=== PATIENT | male | born 1970 | race Caucasian/White ===

== ENCOUNTER 2017-11-09 14:53 | Observation (INO) ==
[2017-11-09] MEDS ORDERED: IPRATROPIUM/ALBUTEROL 3 ML AMPUL.NEB NEB ONE (15:08)
[2017-11-09] MEDS ORDERED: methylPREDNISolone SOD SUCC 125 MG/2 ML VIAL IV ONE (15:18)
--- NOTE | 2017-11-09 15:22 | Emergency Department Note ---
SOB HPI - General Chief Complaint: Shortness of Breath/Dyspnea Stated Complaint: SOB Time Seen by Provider: 11/09/17 15:17 Source: patient Mode of arrival: ambulatory Limitations: no limitations - History of Present Illness 47-year-old male with a history of shortness of breath/chest pain occurs mainly with coughing. That is the chest pain only occurs when he is having a coughing fit. His chest is sore though. He has been sick now for over a week and was admitted to [facility] for 3 days and released yesterday. He is on antibiotics and inhaler but not steroids. He reports some dizziness. He is a dialysis patient of Dr. Aguilera and has a significant heart history-see past medical history Denies fever nausea vomiting diarrhea. He does not make urine anymore except just a little bit Lexiscan stress test was done at [facility] on 11/08/2017 which was negative for ischemia with ejection fraction of 53%. His troponin there was 0.13 - Related Data Home Medications Medication Instructions Recorded Confirmed Aspirin [[place] Aspirin] 81 mg PO DAILY 11/09/17 11/09/17 Atorvastatin [Lipitor] 40 mg PO HS 11/09/17 11/09/17 Calcium Carbonate 11/09/17 Clopidogrel Bisulfate [Plavix] 75 mg PO DAILY 11/09/17 11/09/17 Coreg 11/09/17 Fenofibrate Nanocrystallized 48 mg PO DAILY 11/09/17 11/09/17 [Tricor] Furosemide [Lasix] 40 mg PO DAILY 11/09/17 11/09/17 Isosorbide Mononitrate [Imdur] 60 mg PO DAILY 11/09/17 11/09/17 Lisinopril DAILY 11/09/17 Methocarbamol [Robaxin] 11/09/17 Nitroglycerin mg SL 11/09/17 Risperdal DAILY 11/09/17 Sevelamer [Renvela] 800 mg PO 11/09/17 Terazosin [Hytrin] 5 mg PO DAILY 11/09/17 11/09/17 amLODIPine [Norvasc] 10 mg PO DAILY 11/09/17 11/09/17 cloNIDine 11/09/17 Allergies Allergy/AdvReac Type Severity Reaction Status Date / Time No Known Drug Allergies Allergy Unverified 11/09/17 14:54 Review of Systems All systems ED: reviewed and negative except as stated. Past Medical History - Past Medical History Attestation: Yes: The following information was validated with the patient. Medical history: Reports: CHF (Dilated cardiomyopathy), COPD, coronary artery disease, hypertension, myocardial infarction, renal disease (On dialysis with catheter and fistula) Psychiatric history: Reports: schizophrenia Surgical history ED: Reports: angioplasty/stent, cholecystectomy, other ( Dialysis fistula catheter) - Social History smoking status: Current every day smoker Alcohol use: Reports: None Physical Exam Some acute distress secondary to respiratory issues. Normocephalic atraumatic. He has some mild proptosis. No nasal discharge or congestion. Oropharynx pink moist. Hoarse voice. Poor dentition with multiple missing teeth. Neck is supple without lymphadenopathy or thyromegaly. Heart is tachycardic difficulty or murmur without. He has a dialysis catheter in his right upper chest. Lungs are tight as it is difficult for him to take a deep breath without significant coughing he is got rhonchi and wheezing in all lung garner. I do not hear any significant rales. He is not requiring oxygen at this point. +2 radial pulse. Fistula in place left upper arm bicep area. Alert oriented able to answer questions appropriately Limitations: no limitations Course Vital Signs Temperature 97.9 F 11/09/17 14:54 Respiratory Rate 14 11/09/17 14:54 Blood Pressure 121/79 11/09/17 14:54 Temperature 99.0 F H 11/10/17 04:08 Pulse Rate 99 H 11/10/17 04:08 Respiratory Rate 20 11/10/17 04:08 Blood Pressure 128/91 11/10/17 04:08 Pulse Oximetry (%) 95 11/10/17 04:08 Shortness of Breath/Dyspnea - Medical Records Medical records reviewed: Yes I reviewed the patient's medical records. - Lab Data Lab results reviewed: Yes I reviewed the patient's lab results. Result diagrams: 11/10/17 03:40 11/10/17 03:40 Lab Results 11/09/17 11/09/17 11/09/17 Range/Units 15:40 15:46 15:46 WBC 10.5 (4.5-11.0) K/mcL RBC 3.41 L (4.50-5.90) M/mcL Hgb 10.2 L (13.5-16.5) g/dL Hct 30.3 L (41.0-55.0) % POC Hct 30.0 L (41.0-55.0) % MCV 89.1 (80.0-100.0) fL MCH 29.9 (26.0-34.0) pg MCHC 33.6 (31.0-36.0) g/dL RDW 17.7 H (11.5-14.5) % Plt Count 217 (140-440) K/mcL MPV 7.9 (7.4-10.4) fL Gran % 77.6 (38.0-78.0) % Lymph % (Auto) 7.2 L (15.5-49.0) % Becker % (Auto) 13.4 H (1.0-12.0) % Eos % (Auto) 1.6 (0.0-7.0) % Baso % (Auto) 0.2 (0.0-2.0) % Gran # 8.2 H (1.8-8.0) K/mcL Lymph # (Auto) 0.8 L (1.5-4.8) K/mcL Becker # (Auto) 1.4 H (0.1-0.9) K/mcL Eos # (Auto) 0.2 (0.0-0.7) K/mcL Baso # (Auto) 0 (0.0-0.3) K/mcL VBG Lactic Acid 0.8 (0.5-2.2) mmol/L POC Sodium 129 L (133-145) mmol/L Sodium 130 L (133-145) mmol/L POC Potassium 5.5 H (3.3-5.1) mmol/L Potassium 5.7 H (3.3-5.1) mmol/L POC Chloride 91 L (96-108) mmol/L Chloride 85 L (96-108) mmol/L Carbon Dioxide 21 L (22-30) mmol/L POC Total CO2 25 (22-30) mmol/L Anion Gap 24.0 H (8-16) POC BUN 86 H (6-20) mg/dl BUN 85 H (6-20) mg/dl Creatinine 9.9 H* (0.7-1.2) mg/dl POC Creatinine 11.0 H* (0.7-1.2) mg/dl GFR Calculation 6 Glucose 112 H (70-105) mg/dL POC Glucose 106 H (70-105) mg/dL Calcium 8.1 L (8.6-10.4) mg/dl POC WB Ioniz Calcium 0.90 L (1.16-1.32) mmol/L Magnesium 2.0 (1.6-2.5) mg/dL Total Bilirubin 0.3 (0.0-1.0) mg/dL AST 17 (0-37) U/l ALT 17 (0-40) U/l Alkaline Phosphatase 99 (39-117) U/L Troponin T (0-0.03) ng/ml Total Protein 6.6 (5.9-8.4) gm/dL Albumin 4.2 (3.2-5.2) gm/dL Globulin 2.4 (2.2-3.7) gm/dL Albumin/Globulin Ratio 1.8 (1.0-2.3) TSH 3.61 (0.27-5.01) uIU/ml Free T4 1.22 (0.7-1.7) ng/dl 11/09/17 Range/Units 15:46 WBC (4.5-11.0) K/mcL RBC (4.50-5.90) M/mcL Hgb (13.5-16.5) g/dL Hct (41.0-55.0) % POC Hct (41.0-55.0) % MCV (80.0-100.0) fL MCH (26.0-34.0) pg MCHC (31.0-36.0) g/dL RDW (11.5-14.5) % Plt Count (140-440) K/mcL MPV (7.4-10.4) fL Gran % (38.0-78.0) % Lymph % (Auto) (15.5-49.0) % Becker % (Auto) (1.0-12.0) % Eos % (Auto) (0.0-7.0) % Baso % (Auto) (0.0-2.0) % Gran # (1.8-8.0) K/mcL Lymph # (Auto) (1.5-4.8) K/mcL Becker # (Auto) (0.1-0.9) K/mcL Eos # (Auto) (0.0-0.7) K/mcL Baso # (Auto) (0.0-0.3) K/mcL VBG Lactic Acid (0.5-2.2) mmol/L POC Sodium (133-145) mmol/L Sodium (133-145) mmol/L POC Potassium (3.3-5.1) mmol/L Potassium (3.3-5.1) mmol/L POC Chloride (96-108) mmol/L Chloride (96-108) mmol/L Carbon Dioxide (22-30) mmol/L POC Total CO2 (22-30) mmol/L Anion Gap (8-16) POC BUN (6-20) mg/dl BUN (6-20) mg/dl Creatinine (0.7-1.2) mg/dl POC Creatinine (0.7-1.2) mg/dl GFR Calculation Glucose (70-105) mg/dL POC Glucose (70-105) mg/dL Calcium (8.6-10.4) mg/dl POC WB Ioniz Calcium (1.16-1.32) mmol/L Magnesium (1.6-2.5) mg/dL Total Bilirubin (0.0-1.0) mg/dL AST (0-37) U/l ALT (0-40) U/l Alkaline Phosphatase (39-117) U/L Troponin T 0.15 H* (0-0.03) ng/ml Total Protein (5.9-8.4) gm/dL Albumin (3.2-5.2) gm/dL Globulin (2.2-3.7) gm/dL Albumin/Globulin Ratio (1.0-2.3) TSH (0.27-5.01) uIU/ml Free T4 (0.7-1.7) ng/dl ABG shows pH 7.48 PCO2 34 PO2 of 60 - Radiology Data Radiology results reviewed: Yes I reviewed the patient's radiology results. Chest x-ray shows new subvalvular opacities which are unclear origin but could be related to infection. - EKG Data EKG attestation: Yes I reviewed and interpreted this EKG. EKG results narrative: EKG shows sinus tachycardia with a rate of 100 with some bigeminy PVCs. First- degree block is also seen. there is a lot of artifact Disposition Pt seen by [employer] ARCHITECT/PA only: No Clinical Impression: Acute exacerbation of chronic obstructive airways disease, Hyperkalemia Renal failure (ARF), acute on chronic Qualifiers: Acute renal failure type: unspecified Chronic kidney disease stage: on chronic dialysis Qualified Code(s): N17.9 - Acute kidney failure, unspecified Summary: Initially given DuoNeb which did improve his breathing such that he did not require oxygen. Workup started with laboratory flu swab x-ray EKG etc. High risk secondary to dialysis. Getting records from [facility] see HPI Influenza swab was negative. Chest x-ray showed some alveolar opacities consistent with a pneumonia. He was given calcium gluconate for hyperkalemia; breathing treatment likely help this as well. He was still having coarse breathing sounds after the breathing treatment so we attempted to give him a second breathing treatment but he developed tachycardia that started to go into wide-complex so this was stopped. His rhythm strip improved but he still had a headache so I gave him some hydrocodone I discussed his case with Dr. Fabian, atm servicer, who agreed to accept the patient for dialysis here and consult with Dr. Mariano. I then contacted Dr. Mariano the hospitalist who agreed to accept the patient Disposition: Xfer As Inpt ([facility]) Condition: Serious
--- NOTE | 2017-11-09 15:50 | XRay Report ---
HISTORY: Reason for Exam:dyspnea FINDINGS: The heart is mildly enlarged. There is mild haziness in the lung parenchyma bilaterally. Small band of discoid atelectasis is present laterally in the left lower thorax. There is no consolidating infiltrate, mass or pleural effusion. There is a tunneling catheter placed to the right internal jugular vein into the superior vena cava. Comparison with the prior exam from 06/06/09 shows the heart is larger and the subtle alveolar opacities are new. IMPRESSION: Mild cardiomegaly Subtle alveolar opacities in both lungs which could be due to pulmonary vascular congestion or inflammation. Interpreted and Authenticated by: Ryan Johnson 11/09/17
[2017-11-09 16:16] LABS: Basophils # (Auto) 0 K/mcL (0.0-0.3); Basophils % (Auto) 0.2 % (0.0-2.0); Eosinophils # (Auto) 0.2 K/mcL (0.0-0.7); Eosinophils % (Auto) 1.6 % (0.0-7.0); Granulocytes % (Auto) 77.6 % (38.0-78.0); Lymphocytes # (Auto) 0.8 K/mcL (1.5-4.8); Lymphocytes % (Auto) 7.2 % (15.5-49.0); Mean Cell Volume 89.1 fL (80.0-100.0); Mean Corpuscular HGB Conc 33.6 g/dL (31.0-36.0); Mean Corpuscular Hemoglobin 29.9 pg (26.0-34.0); Monocytes # (Auto) 1.4 K/mcL (0.1-0.9); Monocytes % (Auto) 13.4 % (1.0-12.0); Platelet Count 217 K/mcL (140-440); RBC 3.41 M/mcL (4.50-5.90); Red Cell Distribution Width 17.7 % (11.5-14.5)
[2017-11-09] MEDS ORDERED: ALBUTEROL SULFATE 2.5 MG/3 ML NEBULIZER NEB ONE (16:16)
[2017-11-09] MEDS ORDERED: HYDROcodone/APAP 5/325MG TABLET PO ONE ×2 (16:35→20:08)
[2017-11-09 16:51] LABS: ALT/SGPT 17 U/l (0-40); Albumin 4.2 gm/dL (3.2-5.2); Albumin/Globulin Ratio 1.8 (1.0-2.3); Alkaline Phosphatase 99 U/L (39-117); Blood Urea Nitrogen 85 mg/dl (6-20); Free T4 (Free Thyroxine) 1.22 ng/dl (0.7-1.7)
[2017-11-09] MEDS ORDERED: CALCIUM GLUCONATE 7 MEQ in DEXTROSE 5% IN WATER 50 ML IV ONE (17:00)
[2017-11-09] MEDS ORDERED: CALCIUM GLUCONATE 4.65 MEQ/10 ML VIAL ONE (17:29)
--- NOTE | 2017-11-09 19:35 | Internal Med History&Physical ---
Medical - H&P: HPI Patient information: Note initiated : 11/09/17 at 7:29 pm Service Date, if different from initiated Date: [] Patient: Elias Huffman a 47 y/o M admitted on for Shortness of breath. Chief Complaint: dyspnea History of present illness: Mr. Huffman is a 47 year old M with a history of hypertension, end-stage renal disease secondary to hypertension on hemodialysis since August 2016, coronary artery disease with stenting in the past and recent negative stress test ( yesterday), COPD, diastolic heart failure who presents with dyspnea after being discharged from [facility] yesterday. History is obtained in speaking with the patient, as well as reviewing records from his recent admission at [facility], summarized throughout the narrative below. Patient was hospitalized on Saturday with complaints of shortness of breath. He is also having cough, some brownish sputum. He is having intermittent chest pains, seem to be associated with cough. He had evidence of volume overload, underwent dialysis on Saturday and . There was some improvement in his condition. He also had intermittent ongoing chest pain, which seemed atypical in nature. However there was some history of it radiating to the left arm on at least one occasion, and he underwent a myocardial perfusion study yesterday which showed no evidence of ischemia and normal left ventricular size. He was discharged yesterday with plans to go to his usual outpatient hemodialysis. I discussed this with Dr. Fabian, his chain builder loom control, apparently the patient decided not to show up. The patient tells me he was confused at the time of discharge, and doesn't remember a lot of the end of his hospitalization after he went up for his stress test. He tells me that last night he continued to be short of breath. He is coughing up a foamy sputum, he's also had some brownish sputum. He couldn't sleep well because of dyspnea. He cannot lay flat, while I'm interviewing him he has to sit up straight in order to catch his breath at times. He's had lower extremity edema, which is worse in the last 24 hours. He's had some gagging with his cough, but no nausea or vomiting, no abdominal pain. He's had a sore throat due to coughing and a headache. He is getting sharp left parasternal chest pains with cough, and complaints of his ribs hurting throughout due to coughing. He denies any fevers or chills. No nasal congestion, no sinus pressure or pain. No focal neurologic symptoms. He has a history of schizoaffective disorder, denies any hallucinations, any thoughts of self-harm. He presents to our emergency department with the same complaints of dyspnea, shortness of breath, some foamy sputum. He was displaying purse lipped breathing, was wheezing, with poor air movement. He received a DuoNeb in the emergency department with some improvement in his symptoms. He was subsequently started on a follow-up albuterol nebulizer and developed a wider complex tachycardia and the albuterol treatment was stopped. Denied any chest pain or palpitations during that episode, when I query him during my interview. He was also noted to have potassium of 5.7, received calcium gluconate as well as the DuoNeb. Patient's now being hospitalized for further dialysis for volume overload and hyperkalemia. Review of systems: Except as noted in history of present illness, the remainder of a 12 point review of systems is negative Medical - H&P: PMH Medical history: Hypertension End-stage renal disease due to hypertensive nephropathy on hemodialysis Saturday Coronary artery disease status post stenting Negative MPI 11/08/2017 at [facility] in [place] COPD Hypercholesterolemia Diastolic heart failure Chronic anemia Schizoaffective disorder Gastroesophageal reflux disease Polysubstance abuse Surgical history: Status post cholecystectomy Status post left arm fistula Pertinent family history: Hypertension Social history: The patient lives with his girlfriend. He smokes 2 cigarettes a day. He does not drink alcohol. He does smoke marijuana. Medical - H&P: Meds Home Medications Medication Instructions Recorded Confirmed Type Aspirin [[place] Aspirin] 81 mg PO DAILY 11/09/17 11/09/17 History Atorvastatin [Lipitor] 40 mg PO HS 11/09/17 11/09/17 History Calcium Carbonate 11/09/17 History Clopidogrel Bisulfate [Plavix] 75 mg PO DAILY 11/09/17 11/09/17 History Coreg 11/09/17 History Fenofibrate Nanocrystallized 48 mg PO DAILY 11/09/17 11/09/17 History [Tricor] Furosemide [Lasix] 40 mg PO DAILY 11/09/17 11/09/17 History Isosorbide Mononitrate [Imdur] 60 mg PO DAILY 11/09/17 11/09/17 History Lisinopril DAILY 11/09/17 History Methocarbamol [Robaxin] 11/09/17 History Nitroglycerin mg SL 11/09/17 History Risperdal DAILY 11/09/17 History Sevelamer [Renvela] 800 mg PO 11/09/17 History Terazosin [Hytrin] 5 mg PO DAILY 11/09/17 11/09/17 History amLODIPine [Norvasc] 10 mg PO DAILY 11/09/17 11/09/17 History cloNIDine 11/09/17 History Allergies Allergy/AdvReac Type Severity Reaction Status Date / Time No Known Drug Allergies Allergy Unverified 11/09/17 14:54 Medical - H&P: Exam - Constitutional Vitals: Temp Pulse Resp BP Pulse Ox 97.9 F 43 L 19 133/87 93 11/09/17 14:54 11/09/17 18:41 11/09/17 18:41 11/09/17 15:23 11/09/17 18:41 Exam: General: Alert, in mild distress HEENT: Normocephalic. Pupils are 5 mm and equally round and reactive to light. Sclera are anicteric. No conjunctival injection. Oropharynx is with moist mucous membranes, no lip or gum lesions. Tongue is midline. Neck: Supple, no meningismus. No thyromegaly. Chest: Scattered inspiratory and expiratory wheezes, bibasilar fine crackles. Respiratory effort is mildly to moderately labored. There is a right tunneled dialysis catheter, site is intact, nontender. Cardiovascular: Regular irregular rhythm, normal rate with 1/6 systolic murmur in the precordium. No gallop or rub appreciated. Carotid pulses 2+, no bruit appreciated. While sitting upright, jugular venous distention is to angle of the jaw. There is 1+ lower extremity edema. Abdomen: Soft, nontender without guarding or rebound. Active bowel sounds. No hepatosplenomegaly. Lymphatic: No cervical or supraclavicular lymphadenopathy. Skin: Warm, dry. No rash. Skin turgor is normal. Ecchymoses on the abdomen from prior heparin injections. Forearm tattoos noted. Musculoskeletal: No joint erythema or tenderness. Normal range of motion in the upper and lower extremities. Strength 5/5 in upper and lower extremities. Digits without cyanosis or clubbing. The on the left arm with thrill palpated and bruit. Neuro: Alert, oriented X3. Cranial nerves II through XII grossly intact. Sensation intact to light touch. Mood is a bit blunted, displays decreased insight into condition. Medical - H&P: Reslt - Labs CBC & Chem 7: 11/09/17 15:46 11/09/17 15:46 Labs: Short CBC 11/09/17 Range/Units 15:46 WBC 10.5 (4.5-11.0) K/mcL Hgb 10.2 L (13.5-16.5) g/dL Hct 30.3 L (41.0-55.0) % Plt Count 217 (140-440) K/mcL BMP 11/09/17 15:46 Sodium 130 L Potassium 5.7 H Chloride 85 L Carbon Dioxide 21 L BUN 85 H Creatinine 9.9 H* Glucose 112 H Calcium 8.1 L Cardiac Enzymes 11/09/17 Range/Units 15:46 Troponin T 0.15 H* (0-0.03) ng/ml Liver Function 11/09/17 Range/Units 15:46 Total Bilirubin 0.3 (0.0-1.0) mg/dL AST 17 (0-37) U/l ALT 17 (0-40) U/l Alkaline Phosphatase 99 (39-117) U/L Albumin 4.2 (3.2-5.2) gm/dL - EKG Data -: EKG Reviewed by Myself (SR with ventricular bigeminy) - Imaging and Cardiology Chest x-ray Status: image reviewed by me Additional comments: IMPRESSION: Mild cardiomegaly Subtle alveolar opacities in both lungs which could be due to pulmonary vascular congestion or inflammation. Medical - H&P: A/P (1) Volume overload Current visit: Yes Status: Acute (2) ESRD (end stage renal disease) on dialysis Current visit: Yes Status: Acute (3) Hypertension Current visit: Yes Status: Acute (4) Hyperkalemia Current visit: Yes Status: Acute (5) Acute exacerbation of chronic obstructive airways disease Current visit: Yes Status: Acute - Narrative A/P Narrative: 47-year-old male with multiple medical problems, including end-stage renal disease on hemodialysis presents with dyspnea. Has evidence of volume overload. Dyspnea. Suspect primarily due to volume overload. He has jugular venous pressure elevation, edema, rales on exam. I discussed with Dr. Fabian, the patient frequently has significant weight gain between dialysis sessions, is not always able to be brought back down to a day. Patient does not have leukocytosis. He is coughing up brownish sputum. He does have subtle alveolar changes on his chest x-ray, by suspect that is secondary to volume overload and pulmonary edema and does not represent pneumonia. He does have wheezing, which could be due to volume overload but I suspect he has an exacerbation of COPD as well. Plan: 1. Observation hospitalization 2. Hemodialysis tonight, likely hemodialysis again in the morning 3. DuoNeb every 6 hours 4. When necessary albuterol, will avoid too frequent beta agonist administration given his wide complex tachycardia in the ED 5. Steroid pulse Hyperkalemia. Likely secondary to ESRD and missed dialysis Plan: HD tonight. Coronary artery disease with elevated troponin at 0.11. Patient had troponin of [place] elevation range at [facility]. Likely secondary to end-stage renal disease. Reassuringly, he had a negative MPI yesterday. Plan: Continue home regimen. Hypertension. Patient's blood pressure normal in the ED, less suspicion for hypertensive emergency explaining his volume overload/pulmonary edema. Plan: Continue home regimen. CODE STATUS discussed with the patient, he is full code Medical - H&P: Qual - Stroke Symptom Onset Unknown: Yes
[2017-11-09] MEDS ORDERED: ALBUTEROL SULFATE 2.5 MG/3 ML NEBULIZER NEB PRN (19:39)
[2017-11-09] MEDS ORDERED: ACETAMINOPHEN 325 MG TABLET PO PRN (19:39)
[2017-11-09] MEDS ORDERED: HYDROcodone/APAP 5/325MG TABLET PO PRN (19:39)
[2017-11-09] MEDS ORDERED: ONDANSETRON 4 MG/2 ML VIAL IV PRN (19:39)
[2017-11-09] MEDS: HEPARIN 5,000 UNIT/ML VIAL SQ SCH (21:02)
[2017-11-09 21:34] LABS: Appearance,Urine CLEAR; Bacteria,Urine FEW /hpf (0); Bilirubin,Urine NEG (NEG); Color,Urine YELLOW; Glucose,Urine (UA) NEGATIVE (NEG); Leukocyte Esterase,Urine NEG /uL (NEG); Nitrate,Urine NEG (NEG); Protein,Urine 100 mg/dL (NEG); Specific Gravity,Urine 1.015 (1.000-1.035); Urine Blood NEG mg/dL (<0.03); Urine RBC < 1 /hpf (0-1); Urine Squamous Epithelial Cell 0 /hpf (0-4); Urine Transitional Epi Cells < 1 /hpf (0-2); Urine WBC 1 /hpf (0-4); Urobilinogen,Urine NEG (NEG)
[2017-11-10] MEDS: IPRATROPIUM/ALBUTEROL 3 ML AMPUL.NEB NEB SCH ×3 (00:28→14:10)
[2017-11-10 06:21] LABS: Basophils # (Auto) 0 K/mcL (0.0-0.3); Basophils % (Auto) 0 % (0.0-2.0); Eosinophils # (Auto) 0.1 K/mcL (0.0-0.7); Eosinophils % (Auto) 0.8 % (0.0-7.0); Granulocytes % (Auto) 92.5 % (38.0-78.0); Lymphocytes # (Auto) 0.4 K/mcL (1.5-4.8); Lymphocytes % (Auto) 5.4 % (15.5-49.0); Mean Cell Volume 88.9 fL (80.0-100.0); Mean Corpuscular HGB Conc 33.5 g/dL (31.0-36.0); Mean Corpuscular Hemoglobin 29.8 pg (26.0-34.0); Monocytes # (Auto) 0.1 K/mcL (0.1-0.9); Monocytes % (Auto) 1.3 % (1.0-12.0); Platelet Count 240 K/mcL (140-440); RBC 3.67 M/mcL (4.50-5.90)
[2017-11-10 06:40] LABS: ALT/SGPT 18 U/l (0-40); Albumin 4.5 gm/dL (3.2-5.2); Albumin/Globulin Ratio 1.7 (1.0-2.3); Alkaline Phosphatase 119 U/L (39-117); Bilirubin,Direct < 0.2 mg/dL (0.0-0.3); Blood Urea Nitrogen 50 mg/dl (6-20); Gamma Glutamyl Transpeptidase 301 U/L (8-61); Magnesium 2.1 mg/dL (1.6-2.5); Uric Acid 4.6 mg/dL (2.5-8.0)
[2017-11-10] MEDS ORDERED: predniSONE 20 MG TABLET PO SCH (08:00)
[2017-11-10] MEDS: HEPARIN 5,000 UNIT/ML VIAL SQ SCH (09:15)
[2017-11-10] MEDS ORDERED: amLODIPine 10 MG TABLET PO SCH (10:03)
[2017-11-10] MEDS ORDERED: FUROSEMIDE 40 MG TABLET PO SCH (10:03)
[2017-11-10] MEDS ORDERED: ISOSORBIDE MONONITRATE 60 MG TAB.XL.24H PO SCH (10:04)
[2017-11-10] MEDS ORDERED: ASPIRIN 325 MG ENTERIC COATED TABLET PO SCH (11:00)
[2017-11-10] MEDS ORDERED: risperiDONE 1 MG TABLET PO SCH (11:00)
[2017-11-10] MEDS ORDERED: CARVEDILOL 12.5 MG TABLET PO SCH (11:00)
[2017-11-10] MEDS ORDERED: SEVELAMER 800 MG TABLET PO SCH (12:00)
[2017-11-10] MEDS ORDERED: 0.9 % SODIUM CHLORIDE 10 ML SYRINGE IV SCH (14:00)
[2017-11-10] MEDS ORDERED: ATORVASTATIN 20 MG TABLET PO SCH (21:00)
[2017-11-10] MEDS ORDERED: METHOCARBAMOL 500 MG TABLET PO SCH (21:00)
--- NOTE | 2017-11-10 23:35 | Discharge Summary ---
Medical - DS: Prov Patient information: Note initiated : 11/10/17 at 11:32 pm Service Date, if different from initiated Date: [] Patient: Elias Huffman 47 y/o M admitted on 11/09/17 for Shortness of breath. Chief Complaint: [] Date of admission: 11/09/17 19:39 Discharge date: 11/10/17 Admitting clinician: Carline Jolly Consults: 11/09/17 17:53 Consult to Physician [CONS] Stat Comment: Consulting Provider: Levon Fabian Reason For Exam: Physician to Consult Consult to Physician [CONS] Stat Comment: Consulting Provider: Carline Jolly Reason For Exam: Physician to Consult Discharging clinician: Carline Jolly Medical - DS: Meds - Discharge Medications Prescriptions: Albuterol Sulfate [Ventolin] 1 puff INH Q4-6HP PRN #1 inhaler PRN Reason: Shortness Of Breath predniSONE [Prednisone] 40 mg PO [facility] #11 tab Active and Home Medications: Home Medications Aspirin [[place] Aspirin] 325 mg PO DAILY 11/09/17 [History Confirmed Last Taken 11/09/17 05:00 325] Atorvastatin [Lipitor] 40 mg PO HS 11/09/17 [History Confirmed 11/10/17 Last Taken 11/08/17 19:00] Calcium Carbonate 2 tab PO DAILY 11/09/17 [History Confirmed 11/10/17 Last Taken 11/09/17 05:00] Clopidogrel Bisulfate [Plavix] 75 mg PO DAILY 11/09/17 [History Confirmed Last Taken 11/09/17 05:00] Coreg 50 mg PO BID 11/09/17 [History Confirmed 11/10/17 Last Taken 11/09/17 05: 00] Fenofibrate Nanocrystallized [Tricor] 48 mg PO DAILY 11/09/17 [History Confirmed 11/10/17 Last Taken 11/09/17 05:00] Furosemide [Lasix] 40 mg PO DAILY 11/09/17 [History Confirmed 11/10/17 Last Taken 11/09/17 05:00] Isosorbide Mononitrate [Imdur] 60 mg PO DAILY 11/09/17 [History Confirmed Last Taken 11/09/17 05:00] Lisinopril 40 mg PO DAILY 11/09/17 [History Confirmed 11/10/17 Last Taken 05:00] Methocarbamol [Robaxin] 500 mg PO BID 11/09/17 [History Confirmed 11/10/17 Last Taken 11/09/17 05:00] Nitroglycerin 0.4 mg SL 11/09/17 [History Last Taken 09/11/17 06:00] Risperdal 5 mg PO DAILY 11/09/17 [History Confirmed 11/10/17 Last Taken 05:00] Sevelamer [Renvela] 800 mg PO AC 11/09/17 [History Confirmed 11/10/17 Last Taken 11/09/17 07:00] Terazosin [Hytrin] 5 mg PO DAILY 11/09/17 [History Confirmed 11/10/17 Last Taken 11/09/17 05:00] amLODIPine [Norvasc] 10 mg PO DAILY 11/09/17 [History Confirmed 11/10/17 Last Taken 11/09/17 05:00] cloNIDine 2 mg TRANSDERMA WEEKLY 11/09/17 [History Confirmed 11/10/17 Last Taken 11/04/17 05:00] Albuterol Sulfate [Ventolin] 1 puff INH Q4-6HP PRN #1 inhaler 11/10/17 [Rx Last Taken Unknown] predniSONE [Prednisone] 40 mg PO [facility] #11 tab 11/10/17 [Rx Last Taken Unknown] Medical - DS: Hosp Hospital course: November 09 Patient is a 47-year-old male with hypertension, end-stage renal disease on dialysis, who was discharged from [facility] one day prior to admission after presentation there and treatment for bronchitis and volume overload. He presents to our emergency department with the same complaints of dyspnea, shortness of breath, some foamy sputum. He was displaying purse lipped breathing, was wheezing, with poor air movement. He received a DuoNeb in the emergency department with some improvement in his symptoms. He was subsequently started on a follow-up albuterol nebulizer and developed a wider complex tachycardia and the albuterol treatment was stopped. Denied any chest pain or palpitations during that episode, when I query him during my interview. He was also noted to have potassium of 5.7, received calcium gluconate as well as the DuoNeb. Patient's now being hospitalized for further dialysis for volume overload and hyperkalemia. November 10 Patient is doing well. He had 5 L of fluid removed during dialysis yesterday evening after hospitalization. He underwent further hemodialysis with 3.6 L removed today, for a total of 8.6 L. He is breathing much more comfortably, lungs are clear and does not have evidence of volume overload currently. He will be discharged to home, to follow-up with his usual dialysis, which is delayed until Saturday given the holiday tomorrow. He will also continue on a prednisone taper and be prescribed an albuterol MDI for bronchitis. Discharge diagnosis: Volume overload secondary to end-stage renal disease - Time Spent with Patient Total time spent providing and/or coordinating discharge services: Greater than 30 minutes Medical - DS: Exam - Constitutional Vitals: Vital Signs Temp Pulse Pulse Resp BP BP Pulse Ox 11/10/17 15:40 99.1 F H 93 H 16 122/84 93 11/10/17 14:15 95 H 18 11/10/17 13:12 98.4 F 55 L 130/57 11/10/17 13:00 98.4 F 16 110/58 96 11/10/17 12:55 79 127/71 11/10/17 12:44 80 130/74 11/10/17 12:11 98.4 F 48 L 143/100 11/10/17 11:39 79 156/95 11/10/17 11:01 85 136/105 11/10/17 08:01 137/93 93 11/10/17 07:29 96 H 18 11/10/17 07:27 99.7 F H 98 H 18 143/97 92 11/10/17 07:15 93 11/10/17 04:08 99.0 F H 99 H 20 128/91 95 11/10/17 04:07 94 11/10/17 04:01 128/91 98 11/10/17 02:00 144/93 95 11/10/17 00:46 139/100 97 11/10/17 00:30 141/86 97 11/10/17 00:26 130/90 94 11/10/17 00:20 119/71 95 11/10/17 00:15 108/73 96 11/10/17 00:12 96 H 119/71 11/10/17 00:00 112/76 97 11/09/17 23:45 142/93 100 11/09/17 23:44 95 H 142/93 Intake and Output 11/10/17 11/10/17 11/11/17 13:59 21:59 05:59 Intake Total 1030 / 1030 240 / 240 Output Total 3609 / 3609 Balance -2579 / -2579 240 / 240 Intake: Oral 1030 / 1030 240 / 240 Output: Hemodialysis UF 3609 / 3609 Other: Meal Breakfast Lunch Percent of Meal Consumed 100% 100% Feeding Ability Independent Weight 185 lb Patient Weight 11/11/17 05:59 Weight 185 lb Additional comments: Following hemodialysis on day of discharge General: No acute distress Chest: Clear to auscultation, no rales Cardiovascular: Regular rate and rhythm, jugular venous pressure is not elevated , there is trace lower extremity edema. Abdomen: Soft, nontender Neuro: Alert, oriented Medical - DS: Data Procedures and tests throughout hospitalization: CXR IMPRESSION: Mild cardiomegaly Subtle alveolar opacities in both lungs which could be due to pulmonary vascular congestion or inflammation. Labs on day of discharge: Labs from last 24 hours 11/10/17 11/10/17 03:40 03:40 WBC 8.3 RBC 3.67 L Hgb 10.9 L Hct 32.6 L MCV 88.9 MCH 29.8 MCHC 33.5 RDW 18.0 H Plt Count 240 MPV 7.9 Gran % 92.5 H Lymph % (Auto) 5.[address] [place] % (Auto) 1.3 Eos % (Auto) 0.8 Baso % (Auto) 0 Gran # 7.7 Lymph # (Auto) 0.[address] [place] # (Auto) 0.1 Eos # (Auto) 0.1 Baso # (Auto) 0 Sodium 133 Potassium 5.0 Chloride 89 L Carbon Dioxide 23 Anion Gap 21.0 H BUN 50 H Creatinine 6.7 H* GFR Calculation 9 Glucose 174 H Uric Acid 4.6 Calcium 9.1 Phosphorus 5.8 H Magnesium 2.1 Total Bilirubin 0.3 Direct Bilirubin < 0.2 GGT 301 H AST 18 ALT 18 Alkaline Phosphatase 119 H Lactate Dehydrogenase 311 H Total Protein 7.2 Albumin 4.5 Globulin 2.7 Albumin/Globulin Ratio 1.7 Triglycerides 61 Preliminary micro results at discharge 11/09/17 15:46 Blood Culture - Preliminary Blood 11/09/17 15:40 Blood Culture - Preliminary Blood Medical - DS: A/P - Patient/Caregiver Discharge Instructions Activity: increase activity as tolerated Diet: Renal Additional Instructions: Follow-up with usual dialysis on 11/12/17 and again on Saturday11/13/17+ Continue with your Renal Diet keep your fluid intake within renal restrictions. Prescriptions: Albuterol Sulfate [Ventolin] 1 puff INH Q4-6HP PRN #1 inhaler PRN Reason: Shortness Of Breath predniSONE [Prednisone] 40 mg PO [facility] #11 tab - Problem Maintenance (1) Volume overload Status: Resolved (2) ESRD (end stage renal disease) on dialysis Status: Chronic (3) Hypertension Status: Chronic (4) Hyperkalemia Status: Resolved (5) Acute exacerbation of chronic obstructive airways disease Status: Acute - Follow up Plan Disposition: Home, Self-Care Prognosis: Good Rehab Potential: Good Overall status at discharge: patient is back to baseline Medical - DS: Qual - VTE Deep Vein Thrombosis/Pulmonary Embolism Present on Admission: No
[2017-11-11] MEDS ORDERED: TERAZOSIN 5 MG CAPSULE PO SCH (09:00)
[2017-11-11] MEDS ORDERED: CLOPIDOGREL 75 MG TABLET PO SCH (09:00)
[2017-11-11] MEDS ORDERED: LISINOPRIL 20 MG TABLET PO SCH (09:00)
[2017-11-11] MEDS ORDERED: cloNIDine TTS 2 1 PATCH PATCH TD SCH (10:00)
== END 2017-11-10 16:05 | disposition home or self-care (01) ==
LOC: ICU 14:53 → ED 14:53 → OBSVTOIN 19:37 → INTOOBSV 19:39 → ICU 19:45
PROVIDERS: ADMIT Internal Medicine; ATTEND Internal Medicine

== ENCOUNTER 2019-07-07 16:18 | Inpatient (IN) ==
--- NOTE | 2019-07-07 17:30 | XRay Report ---
HISTORY: Dialysis patient with dyspnea. Patient had missed his dialysis appointment yesterday. FINDINGS: There is moderate pulmonary vascular congestion with pulmonary edema. The heart is moderately enlarged. Lung volumes are normal. There is no consolidating infiltrate or pleural effusion. The aorta is tortuous. Comparison with the prior exam from 03/16/18 shows the fluid overload is worse today. IMPRESSION: Fluid overload with pulmonary edema Interpreted and Authenticated by: Ryan Jhonson 07/07/19
[2019-07-07 17:55] LABS: Basophils # (Auto) 0 K/mcL (0.0-0.3); Basophils % (Auto) 0.2 % (0.0-2.0); Eosinophils # (Auto) 0.1 K/mcL (0.0-0.7); Eosinophils % (Auto) 1.2 % (0.0-7.0); Granulocytes % (Auto) 87.8 % (38.0-78.0); Hemoglobin 10.8 g/dL (13.5-16.5); Lymphocytes # (Auto) 0.7 K/mcL (1.5-4.8); Mean Cell Volume 90.2 fL (80.0-100.0); Mean Corpuscular HGB Conc 33.6 g/dL (31.0-36.0); Mean Platelet Volume 7.4 fL (7.4-10.4); Monocytes # (Auto) 0.5 K/mcL (0.1-0.9); Monocytes % (Auto) 4.8 % (1.0-12.0); Platelet Count 217 K/mcL (140-440); RBC 3.55 M/mcL (4.50-5.90); Red Cell Distribution Width 20.3 % (11.5-14.5)
[2019-07-07 18:11] LABS: ALT/SGPT 21 U/l (0-40); AST/SGOT 25 U/l (0-37); Albumin 4.4 gm/dL (3.2-5.2); Albumin/Globulin Ratio 1.7 (1.0-2.3); Alkaline Phosphatase 124 U/L (39-117); Bilirubin,Total 0.6 mg/dL (0.0-1.0); Blood Urea Nitrogen 64 mg/dl (6-20); Calcium 8.8 mg/dl (8.6-10.4); Carbon Dioxide 22 mmol/L (22-30); Chloride 93 mmol/L (96-108); Globulin 2.6 gm/dL (2.2-3.7); Glomerular Filtration Rate 5; Glucose 75 mg/dL (70-105)
[2019-07-07] MEDS ORDERED: HYDROmorphone 2 MG/ML VIAL IV PRN (18:37)
[2019-07-07 19:02] LABS: Appearance,Urine CLEAR; Bacteria,Urine 0 /hpf (0); Bilirubin,Urine NEG (NEG); Color,Urine YELLOW; Culture Indicated,Urine NO; Glucose,Urine (UA) NEGATIVE (NEG); Ketones,Urine NEG (NEG); Leukocyte Esterase,Urine NEG /uL (NEG); Nitrate,Urine NEG (NEG); Protein,Urine 100 mg/dL (NEG); Specific Gravity,Urine 1.012 (1.000-1.035); Urine Blood 0.03 mg/dL (<0.03); Urine RBC 4 /hpf (0-1); Urine Squamous Epithelial Cell < 1 /hpf (0-4); Urine WBC 1 /hpf (0-4); Urobilinogen,Urine NEG (NEG)
--- NOTE | 2019-07-07 19:23 | Internal Med History&Physical ---
Medical - H&P: HPI Patient information: Note initiated : 07/07/19 at 7:20 pm Service Date, if different from initiated Date: [] Patient: Elias Huffman a 49 y/o M admitted on for Missed Dialysis Appt. Chief Complaint: [] Chief complaint: Shortness of breath History of present illness: Mr. Huffman is a 49 year old M with a history of ESRD on HD 3 times a week/hypertension/CAD with PCI/COPD who presents to the ER after missing his dialysis yesterday with symptoms of profound shortness of breath, pursed lip breathing and cough. Per history patient overslept and missed his scheduled hemodialysis. Over the next 24 hours he has become increasingly fatigued, swollen and short of breath. This morning he could barely get out of the bed due to exhaustion along with progressive dyspnea and cough. He denies changes in medications. He is experiencing difficulty laying flat. He denies associated fever, productive sputum, headache photophobia but endorses to intermittent diarrhea. He has not missed dialysis in the past. He continues to smoke. Denies alcohol. He is accompanied with his daughter. Initial work-up in the ER was consistent with acute pulmonary edema secondary to volume overload. Patient was profoundly hypoxic requiring 3.5 L oxygen to maintain sats. He refused noninvasive ventilation due to claustrophobia. Nephrology was consulted for emergent hemodialysis. Hospitalist service was consulted for admission. On evaluation patient endorses to history as above. He continues to talk and has sentences and appears extremely labored. Review of systems 10 point review system was performed and is negative except was discussed above Medical - H&P: PMH Medical history: Hypertension End-stage renal disease due to hypertensive nephropathy on hemodialysis Saturday Coronary artery disease status post stenting Negative MPI 11/08/2017 at [facility] in [place] COPD Hypercholesterolemia Diastolic heart failure Chronic anemia Schizoaffective disorder Gastroesophageal reflux disease Polysubstance abuse Surgical history: Status post cholecystectomy Status post left arm fistula Pertinent family history: Hypertension Social history: The patient lives with his girlfriend. He smokes 10-12 cigarettes a day. chews tobacco smokes marijuana. Medical - H&P: Meds Home Medications Medication Instructions Recorded Confirmed Type Aspirin [[place] Aspirin] 325 mg PO DAILY 11/09/17 11/10/17 History Atorvastatin [Lipitor] 40 mg PO HS 11/09/17 11/10/17 History Calcium Carbonate 2 tab PO DAILY 11/09/17 11/10/17 History Clopidogrel Bisulfate [Plavix] 75 mg PO DAILY 11/09/17 11/10/17 History Coreg 50 mg PO BID 11/09/17 11/10/17 History Fenofibrate Nanocrystallized 48 mg PO DAILY 11/09/17 11/10/17 History [Tricor] Furosemide [Lasix] 40 mg PO DAILY 11/09/17 11/10/17 History Isosorbide Mononitrate [Imdur] 60 mg PO DAILY 11/09/17 11/10/17 History Lisinopril 40 mg PO DAILY 11/09/17 11/10/17 History Methocarbamol [Robaxin] 500 mg PO BID 11/09/17 11/10/17 History Nitroglycerin 0.4 mg SL 11/09/17 History Risperdal 5 mg PO DAILY 11/09/17 11/10/17 History Sevelamer [Renvela] 800 mg PO AC 11/09/17 11/10/17 History Terazosin [Hytrin] 5 mg PO DAILY 11/09/17 11/10/17 History amLODIPine [Norvasc] 10 mg PO DAILY 11/09/17 11/10/17 History cloNIDine 2 mg TRANSDERMA WEEKLY 11/09/17 11/10/17 History Albuterol Sulfate [Ventolin] 1 puff INH Q4-6HP PRN #1 inhaler 11/10/17 Rx predniSONE [Prednisone] 40 mg PO [facility] #11 tab 11/10/17 Rx Allergies Allergy/AdvReac Type Severity Reaction Status Date / Time No Known Drug Allergies Allergy Verified 07/07/19 16:26 Medical - H&P: Exam - Constitutional Vitals: Temp Pulse Resp BP Pulse Ox 98.6 F 98 H 16 178/113 88 L 07/07/19 16:22 07/07/19 19:06 07/07/19 16:22 07/07/19 19:06 07/07/19 19:06 General appearance: moderate distress (Shortness of breath) Exam: Alert oriented Head normocephalic Oral cavity dry no ear nose discharge Neck no lymphadenopathy S1-S2 regular rhythm Diminished breath sounds/late inspiratory crackles bilateral posterior chest Abdomen soft nontender Lower extremity pitting lymphedema No joint swelling erythema Skin no suspicious lesion Psych alert cooperative but anxious Neuro nonfocal Medical - H&P: Reslt - Labs CBC & Chem 7: 07/07/19 17:08 07/07/19 17:08 Labs: Short CBC 07/07/19 Range/Units 17:08 WBC 11.0 (4.5-11.0) K/mcL Hgb 10.8 L (13.5-16.5) g/dL Hct 32.0 L (41.0-55.0) % Plt Count 217 (140-440) K/mcL BMP 07/07/19 17:08 Sodium 138 Potassium 4.6 Chloride 93 L Carbon Dioxide 22 BUN 64 H Creatinine 10.4 H* Glucose 75 Calcium 8.8 Liver Function 07/07/19 Range/Units 17:08 Total Bilirubin 0.6 (0.0-1.0) mg/dL AST 25 (0-37) U/l ALT 21 (0-40) U/l Alkaline Phosphatase 124 H (39-117) U/L Albumin 4.4 (3.2-5.2) gm/dL Urine 07/07/19 Range/Units 18:04 Urine Color Yellow Urine Appearance Clear Urine pH 9.0 (5.0-9.0) Ur Specific [place] 1.012 (1.000-1.035) Urine Protein 100 A (NEG) mg/dL Urine Glucose (UA) Negative (NEG) mg/dL Medical - H&P: A/P (1) Pulmonary edema Current visit: Yes Status: Acute * Acute pulmonary edema secondary to volume overload-initiate hemodialysis. Nephrology consult. Telemetry admit * Hypoxic respiratory failure secondary above-patient refused noninvasive ventilation. Currently on 4 L oxygen. * Hypertensive urgency with systolics over 180. Initiate as needed hydralazine. Likely precipitated by volume overload as normally his blood pressures around 140. Will reevaluate postdialysis. Restart home medications including clonidine/lisinopril/amlodipine * Hyperlipidemia on statin * History of CAD on aspirin/Plavix statin/beta-melissa/isosorbide * Chronic pain on methocarbamol as needed opioid * BPH continue tamsulosin * Full code * Prophylaxis SCDs/ambulation. High risk bleed in light of dual antiplatelet Plan * Inpatient telemetry admit * Nephrology consult for emergent hemodialysis * As needed hydralazine/restart home antihypertensives * Prior medical condition management on home meds * PT OT/nutrition support
[2019-07-07] MEDS ORDERED: ACETAMINOPHEN 325 MG TABLET PO PRN (20:22)
[2019-07-07] MEDS ORDERED: ACETAMINOPHEN 1,000 MG/100 ML BOTTLE IV PRN (20:22)
[2019-07-07] MEDS ORDERED: ONDANSETRON 4 MG/2 ML VIAL IV PRN (20:22)
[2019-07-07] MEDS: hydrALAZINE 20 MG/ML VIAL IV PRN (21:21)
[2019-07-07] MEDS: DOCUSATE SODIUM 100 MG CAPSULE PO SCH (21:22)
[2019-07-07] MEDS: CYANOCOBALAMIN (VITAMIN B-12) 500 MCG TABLET PO SCH (21:23)
[2019-07-07] MEDS: SENNOSIDES/DOCUSATE SODIUM 1 TAB TABLET PO SCH (21:23)
--- NOTE | 2019-07-07 21:23 | Nephrology Progress Note ---
Subjective Patient information: Note initiated : 07/07/19 at 9:21 pm Service Date, if different from initiated Date: [] Patient: Elias Huffman 49 y/o M admitted on 07/07/19 for Missed Dialysis Appt. Chief Complaint: [] Shortness of breath Objective - Vital Signs Vital signs: Vital Signs Temp Pulse Pulse Resp BP BP BP 07/07/19 20:33 97.4 F 94 H 20 217/140 07/07/19 20:27 97.4 F 94 H 20 217/140 07/07/19 20:00 98 H 199/127 07/07/19 19:30 98 H 181/105 07/07/19 19:06 98 H 178/113 07/07/19 18:41 97 H 198/120 07/07/19 16:46 99 H 192/114 07/07/19 16:22 98.6 F 98 H 16 196/120 Pulse Ox 07/07/19 20:33 92 07/07/19 20:27 92 07/07/19 20:00 93 07/07/19 19:30 93 07/07/19 19:06 88 L 07/07/19 18:41 89 L 07/07/19 16:46 85 L 07/07/19 16:22 93 Intake and Output 07/07/19 07/07/19 07/07/19 05:59 13:59 21:59 Other: Weight 176 lb Patient Weight 07/08/19 05:59 Weight 176 lb Intake & Output: Intake & Output 07/07/19 07/07/19 07/07/19 05:59 13:59 21:59 Weight 176 lb - General Appearance General appearance: well-developed EENT: ATNC Neck: JVD Respiratory: rales Cardiology: no murmurs - Lab 07/07/19 17:08 07/07/19 17:08 Most recent lab results Calcium 8.8 mg/dl (8.6-10.4) 07/07/19 17:08 Assessment and Plan (1) Volume overload Status: Resolved Comment: Volume overloaded with missed dialysis treatment. Electrolytes ok. Will dialyse with fluid removal of 4 kilos with ultrafiltration only. Will need HD in AM.
[2019-07-07] MEDS ORDERED: METOPROLOL TARTRATE 5 MG/5 ML VIAL IV PRN (22:03)
[2019-07-07] MEDS: METOPROLOL TARTRATE 5 MG/5 ML VIAL IV SCH (22:03)
[2019-07-08] MEDS: hydrALAZINE 20 MG/ML VIAL IV PRN ×2 (02:55→13:56)
[2019-07-08] MEDS ORDERED: METOPROLOL TARTRATE 5 MG/5 ML VIAL IV ONE ×2 (04:33→04:48)
[2019-07-08] MEDS: 0.9 % SODIUM CHLORIDE 10 ML SYRINGE IV SCH ×3 (04:41→21:04)
[2019-07-08 05:26] LABS: Hematocrit 32.3 % (41.0-55.0); Hemoglobin 10.8 g/dL (13.5-16.5); Mean Cell Volume 90.9 fL (80.0-100.0); Mean Corpuscular HGB Conc 33.4 g/dL (31.0-36.0); Mean Platelet Volume 7.7 fL (7.4-10.4); Platelet Count 193 K/mcL (140-440); RBC 3.55 M/mcL (4.50-5.90); Red Cell Distribution Width 20.3 % (11.5-14.5)
[2019-07-08 05:40] LABS: ALT/SGPT 24 U/l (0-40); AST/SGOT 30 U/l (0-37); Albumin 4.2 gm/dL (3.2-5.2); Albumin/Globulin Ratio 1.4 (1.0-2.3); Alkaline Phosphatase 147 U/L (39-117); Bilirubin,Direct 0.4 mg/dL (0.0-0.3); Bilirubin,Total 0.9 mg/dL (0.0-1.0); Blood Urea Nitrogen 70 mg/dl (6-20); Calcium 8.9 mg/dl (8.6-10.4); Carbon Dioxide 19 mmol/L (22-30); Chloride 95 mmol/L (96-108); Globulin 2.9 gm/dL (2.2-3.7); Glomerular Filtration Rate 5; Glucose 72 mg/dL (70-105); Lactate Dehydrogenase 339 U/L (94-250); Phosphorous 6.6 mg/dL (2.7-4.5); Triglycerides 92 mg/dl (<150); Uric Acid 7.2 mg/dL (2.5-8.0)
[2019-07-08 06:11] LABS: Anisocytosis 1+ (NONE SEEN); Band Neutrophils % 3 % (0-10); Eosinophils % (Manual) 3 % (0-7); Lymphocytes % 3 % (15-49); Monocytes % (Manual) 3 % (1-12); Nucleated Red Blood Cells 1 % (0-0); Platelet Estimate NORMAL (NORMAL); RBC Morphology ABNORM (NORMAL); Segmented Neutrophils % 88 % (38-78)
[2019-07-08] MEDS ORDERED: ALBUTEROL SULFATE 1 PUFF INHALER INH PRN (08:32)
--- NOTE | 2019-07-08 08:58 | Emergency Department Note ---
SOB HPI - General Chief Complaint: Shortness of Breath/Dyspnea Stated Complaint: Missed Dialysis Appt Time Seen by Provider: 07/07/19 16:50 Source: patient Mode of arrival: ambulatory Limitations: no limitations - History of Present Illness 49-year-old male with a history of regular dialysis 3 times a week/hypertension/CAD with PCI/COPD who presents to the ER after missing his dialysis yesterday with symptoms of profound shortness of breath, pursed lip breathing and cough. Per history patient overslept and missed his scheduled hemodialysis. Has been getting progressive shortness of breath he has become increasingly fatigued, swelling to the bilateral lower extremities. He has not missed dialysis in the past. Complaint: shortness of breath Onset (ago): day(s) Context: other (missed dialysis yesterday) Severity: moderate Consistency/Duration: constant Improves with: nothing Worsens with: nothing Associated symptoms: Reports: lower extremity pain Treatment prior to arrival: none - Related Data Home Medications Medication Instructions Recorded Confirmed Aspirin [[place] Aspirin] 325 mg PO DAILY 11/09/17 07/07/19 Atorvastatin [Lipitor] 40 mg PO DAILY 11/09/17 07/07/19 Calcium Carbonate 2 tab PO DAILY 11/09/17 07/07/19 Clopidogrel Bisulfate [Plavix] 75 mg PO DAILY 11/09/17 07/07/19 Coreg 50 mg PO BID 11/09/17 07/07/19 Fenofibrate Nanocrystallized 48 mg PO DAILY 11/09/17 07/07/19 [Tricor] Furosemide [Lasix] 40 mg PO DAILY 11/09/17 07/07/19 Isosorbide Mononitrate [Imdur] 60 mg PO DAILY 11/09/17 07/07/19 Lisinopril 40 mg PO DAILY 11/09/17 07/07/19 Nitroglycerin 0.4 mg SL PRN PRN 11/09/17 07/07/19 Risperdal 5 mg PO DAILY 11/09/17 07/07/19 Sevelamer [Renvela] 800 mg PO AC 11/09/17 07/07/19 Terazosin [Hytrin] 5 mg PO DAILY 11/09/17 07/07/19 amLODIPine [Norvasc] 10 mg PO DAILY 11/09/17 07/07/19 cloNIDine 2 mg TRANSDERMA [place] 11/09/17 07/07/19 Previous Rx's Medication Instructions Recorded Albuterol Sulfate [Ventolin] 1 puff INH Q4-6HP PRN #1 inhaler 11/10/17 predniSONE [Prednisone] 40 mg PO [facility] #11 tab 11/10/17 Allergies Allergy/AdvReac Type Severity Reaction Status Date / Time No Known Drug Allergies Allergy Verified 07/07/19 16:26 Review of Systems All systems ED: reviewed and negative except as stated. Past Medical History - Past Medical History COUNTS INCLUDE 234 BEDS AT THE [facility] Narrative: All Active Problems Renal failure (ARF), acute on chronic (Acute) Acute exacerbation of chronic obstructive airways disease (Acute) ESRD (end stage renal disease) on dialysis (Chronic) Hypertension (Chronic) Chest pain (Acute) Abdominal pain (Acute) Hyperkalemia (Acute) Pulmonary edema (Acute) Medical history: Reports: atrial fibrillation, CHF (Dilated cardiomyopathy), COPD, CAD (coronary artery disease), CVA, DM, hyperlipidemia, hypertension, migraine, myocardial infarction, renal disease (On dialysis with catheter and fistula) Psychiatric history: Reports: schizophrenia Surgical history ED: Reports: cholecystectomy - Social History smoking status: Current every day smoker Alcohol use: Reports: None Physical Exam Limitations: no limitations General appearance: alert, in no apparent distress Head: atraumatic, normocephalic Eye: Present: normal appearance, PERRL, EOMI. Absent: scleral icterus, conjunctival injection ENT: Present: normal oropharynx, mucous membranes moist Neck: Present: trachea midline. Absent: lymphadenopathy, thyromegaly Chest: Present: symmetric chest wall rise Respiratory: Present: respiratory distress, rales/crackles, other (Hypoxia). Absent: wheezes, stridor, accessory muscle use, prolonged expiratory phase Cardiovascular: Present: regular rate, normal rhythm. Absent: systolic murmur, diastolic murmur Abdominal: Present: soft. Absent: distention, tenderness, guarding, rebound, rigidity, organomegaly, mass Extremities: Present: pedal edema (+2). Absent: pretibial edema, calf te nderness Back: Absent: CVA tenderness (R), CVA tenderness (L), spinous process tenderness Neurological: Present: alert, oriented X3, other (He is feeling sleepy) Psychiatric: Present: normal affect, normal mood Skin: Present: warm, dry Course Course Narrative: 49-year-old male presenting to the emergency department chief complaint of dyspnea, shortness of breath, swelling to lower extremities, generalized fatigue and weakness after missing dialysis yesterday getting progressively worse over about 24-hour period. Discussed case with Dr. Fabian his regular ordained minister and if it does not appear he is able to wait until tomorrow for routine dialysis patient should reasonably be admitted for emergent dialysis in the hospital. Patient noted to be hypoxic on 3-1/2 L, with chest x-ray demonstrating pulmonary edema. Discussed the case with Dr. Barrera and the consensus medical opinion is to admit Dr. Fabian will administer dialysis. Vital Signs Temperature 98.6 F 07/07/19 16:22 Pulse Rate 98 H 07/07/19 16:22 Respiratory Rate 16 07/07/19 16:22 Blood Pressure 196/120 07/07/19 16:22 Pulse Oximetry (%) 93 07/07/19 16:22 Temperature 98.9 F 07/08/19 07:15 Pulse Rate 58 L 07/08/19 08:00 Respiratory Rate 20 07/08/19 08:00 Blood Pressure 192/21 07/08/19 07:15 Pulse Oximetry (%) 93 07/08/19 08:00 Shortness of Breath/Dyspnea - Lab Data Result diagrams: 07/08/19 04:13 07/08/19 04:13 Lab Results 07/07/19 07/07/19 07/07/19 Range/Units 17:08 17:08 18:04 WBC 11.0 (4.5-11.0) K/mcL RBC 3.55 L (4.50-5.90) M/mcL Hgb 10.8 L (13.5-16.5) g/dL Hct 32.0 L (41.0-55.0) % MCV 90.2 (80.0-100.0) fL MCH 30.3 (26.0-34.0) pg MCHC 33.6 (31.0-36.0) g/dL RDW 20.3 H (11.5-14.5) % Plt Count 217 (140-440) K/mcL MPV 7.4 (7.4-10.4) fL Gran % 87.8 H (38.0-78.0) % Lymph % (Auto) 6.0 L (15.5-49.0) % [place] % (Auto) 4.8 (1.0-12.0) % Eos % (Auto) 1.2 (0.0-7.0) % Baso % (Auto) 0.2 (0.0-2.0) % Gran # 9.6 H (1.8-8.0) K/mcL Lymph # (Auto) 0.7 L (1.5-4.8) K/mcL [place] # (Auto) 0.5 (0.1-0.9) K/mcL Eos # (Auto) 0.1 (0.0-0.7) K/mcL Baso # (Auto) 0 (0.0-0.3) K/mcL Sodium 138 (133-145) mmol/L Potassium 4.6 (3.3-5.1) mmol/L Chloride 93 L (96-108) mmol/L Carbon Dioxide 22 (22-30) mmol/L Anion Gap 23.0 H (8-16) BUN 64 H (6-20) mg/dl Creatinine 10.4 H* (0.7-1.2) mg/dl GFR Calculation 5 Glucose 75 (70-105) mg/dL Calcium 8.8 (8.6-10.4) mg/dl Total Bilirubin 0.6 (0.0-1.0) mg/dL AST 25 (0-37) U/l ALT 21 (0-40) U/l Alkaline Phosphatase 124 H (39-117) U/L Total Protein 7.0 (5.9-8.4) gm/dL Albumin 4.4 (3.2-5.2) gm/dL Globulin 2.6 (2.2-3.7) gm/dL Albumin/Globulin Ratio 1.7 (1.0-2.3) Urine Color Yellow Urine Appearance Clear Urine pH 9.0 (5.0-9.0) Ur Specific [place] 1.012 (1.000-1.035) Urine Protein 100 A (NEG) mg/dL Urine Glucose (UA) Negative (NEG) mg/dL Urine Ketones Neg (NEG) mg/dL Urine Occult Blood 0.03 A (<0.03) mg/dL Urine Nitrate Neg (NEG) Urine Bilirubin Neg (NEG) mg/dL Urine Urobilinogen Neg (NEG) mg/dL Ur Leukocyte Esterase Neg (NEG) /uL Urine RBC 4 H (0-1) /hpf Urine WBC 1 (0-4) /hpf Ur Squamous Epith Cells < 1 (0-4) /hpf Urine Bacteria 0 (0) /hpf Ur Culture Indicated? No Critical Care Time Critical Care Time: Yes Total Critical Care Time: 40 Disposition Pt seen by CONTRACT CONSULTANT/PA only: No Clinical Impression: End stage renal disease on dialysis Pulmonary edema Qualifiers: Chronicity: acute Qualified Code(s): J81.0 - Acute pulmonary edema Disposition: Xfer As Inpt ([facility]) Condition: Fair
[2019-07-08] MEDS ORDERED: MULTIVIT,THER IRON,CA,FA & MIN 1 TABLET PO SCH (09:00)
[2019-07-08] MEDS ORDERED: LISINOPRIL 20 MG TABLET PO SCH (09:00)
[2019-07-08] MEDS ORDERED: CALCIUM CARBONATE 500 MG TAB.CHEW CHEWED SCH (09:00)
[2019-07-08] MEDS ORDERED: FUROSEMIDE 40 MG TABLET PO SCH (09:00)
[2019-07-08] MEDS ORDERED: RISPERDAL PO SCH (09:00)
--- NOTE | 2019-07-08 09:02 | Nephrology Progress Note ---
Subjective Patient information: Note initiated : 07/08/19 at 8:59 am Service Date, if different from initiated Date: [] Patient: Elias Huffman 49 y/o M admitted on 07/07/19 for Missed Dialysis Appt. Chief Complaint: [] Breathing is better, still coughing. Had cramps last night. Objective - Vital Signs Vital signs: Vital Signs Temp Pulse Pulse Resp BP BP BP 07/08/19 08:00 58 L 20 07/08/19 07:15 98.9 F 58 L 20 192/21 07/08/19 05:06 170/104 07/08/19 04:44 188/114 07/08/19 04:04 97.8 F 104 H 20 186/95 07/08/19 02:48 182/101 07/08/19 01:45 98.2 F 92 H 163/116 07/08/19 01:30 92 H 192/131 07/08/19 01:15 94 H 205/128 07/08/19 01:00 82 186/151 07/08/19 00:51 162/139 07/08/19 00:45 87 94/71 07/08/19 00:30 90 108/72 07/08/19 00:00 94 H 189/124 07/07/19 23:45 98 H 192/113 07/07/19 23:30 95 H 200/124 07/07/19 23:15 95 H 205/130 07/07/19 23:00 96 H 196/130 07/07/19 22:45 97.5 F 93 H 207/129 07/07/19 22:13 97.5 F 93 H 24 H 192/115 07/07/19 21:41 198/120 07/07/19 20:33 97.4 F 94 H 20 217/140 07/07/19 20:27 97.4 F 94 H 20 217/140 07/07/19 20:00 98 H 199/127 07/07/19 19:30 98 H 181/105 07/07/19 19:06 98 H 178/113 07/07/19 18:41 97 H 198/120 07/07/19 16:46 99 H 192/114 07/07/19 16:22 98.6 F 98 H 16 196/120 Pulse Ox 07/08/19 08:00 93 07/08/19 07:15 91 07/08/19 05:06 07/08/19 04:44 07/08/19 04:04 100 07/08/19 02:48 92 07/08/19 01:45 07/08/19 01:30 07/08/19 01:15 07/08/19 01:00 07/08/19 00:51 07/08/19 00:45 07/08/19 00:30 07/08/19 00:00 07/07/19 23:45 07/07/19 23:30 07/07/19 23:15 07/07/19 23:00 07/07/19 22:45 07/07/19 22:13 93 07/07/19 21:41 07/07/19 20:33 92 07/07/19 20:27 92 07/07/19 20:00 93 07/07/19 19:30 93 07/07/19 19:06 88 L 07/07/19 18:41 89 L 07/07/19 16:46 85 L 07/07/19 16:22 93 Intake and Output 07/07/19 07/08/19 07/08/19 21:59 05:59 13:59 Intake Total 460 Output Total 6200 Balance -5740 Intake: Oral 460 Output: Hemodialysis UF 6200 Other: # Voids 1 Weight 176 lb Intake & Output: Intake & Output 07/07/19 07/08/19 07/08/19 21:59 05:59 13:59 Intake Total 460 Output Total 6200 Balance -5740 Weight 176 lb Intake: Oral 460 Output: Hemodialysis UF 6200 Other: # Voids 1 - General Appearance General appearance: well-developed EENT: ATNC Neck: JVD Respiratory: no kyphosis Cardiology: holosystolic murmur Gastrointestinal: normoactive bowel sounds Integumentary: no rash Neurologic: no focal deficit - Lab 07/08/19 04:13 07/08/19 04:13 Most recent lab results Calcium 8.9 mg/dl (8.6-10.4) 07/08/19 04:13 Phosphorus 6.6 mg/dL (2.7-4.5) H* 07/08/19 04:13 Magnesium 2.3 mg/dL (1.6-2.5) 07/08/19 04:13 Assessment and Plan (1) Volume overload Status: Resolved Comment: Volume overloaded with missed dialysis treatment. Electrolytes ok. Was dialysed with fluid removal of 3600ml with ultrafiltration only. Will do HD today and try another 3 kilos of fluid removal. I know he had cramps so will remove fluid somewhat slowly. HTN Related to volume. Keep removing fluids and restart his bp meds. Hyperphos. Resume renvela possibly can be discharged in AM from renal point of view.
[2019-07-08] MEDS ORDERED: NITROGLYCERIN 0.4 MG TAB.SUBL SL PRN (09:12)
[2019-07-08] MEDS: CLOPIDOGREL 75 MG TABLET PO SCH (09:32)
[2019-07-08] MEDS: CARVEDILOL 12.5 MG TABLET PO SCH ×2 (09:32→17:36)
[2019-07-08] MEDS: CYANOCOBALAMIN (VITAMIN B-12) 500 MCG TABLET PO SCH ×2 (09:33→21:01)
[2019-07-08] MEDS: DOCUSATE SODIUM 100 MG CAPSULE PO SCH ×2 (09:33→21:01)
--- NOTE | 2019-07-08 09:44 | Consultation ---
DATE OF CONSULTATION: 07/07/2019 REASON FOR CONSULTATION: Shortness of breath in a patient who has end-stage renal disease. HISTORY OF PRESENT ILLNESS: The patient is a 49-year-old male with past medical history significant for longstanding hypertension, coronary artery disease, COPD, end-stage renal disease on hemodialysis. He overslept and missed his dialysis treatment on Saturday07/06/2019. He then felt short of breath and came into the emergency room at [facility]. In the emergency room on chest x-ray he was found to have pulmonary congestion. He did not have any fever or chills. For those reasons, he was hospitalized. PAST MEDICAL HISTORY: Significant for: 1. End-stage renal disease on hemodialysis. He dialyzes Saturday, Wednesdays, Fridays. 2. Coronary artery disease with status post stenting. 3. COPD. 4. Hyperglycemia. 5. Diastolic heart failure. 6. Chronic anemia. 7. Schizoaffective disorder. 8. Gastroesophageal reflux disease. 9. Hypertension. 10. Polysubstance abuse. PAST SURGICAL HISTORY: 1. Cholecystectomy. 2. History of left arm AV fistula. FAMILY HISTORY: Significant for hypertension. SOCIAL HISTORY: The patient lives with his girlfriend. He smokes 10 to 12 cigarettes per day. He chews tobacco and smokes marijuana. CURRENT MEDICATIONS: 1. Atorvastatin 40 mg once daily. 2. Aspirin 325 mg once daily. 3. Calcium carbonate 500 mg 2 tablets 3 times a day with meals. 4. Plavix 75 mg once daily. 5. Coreg 50 mg twice daily. 6. Fenofibrate 48 mg once daily. 7. Lasix 40 mg daily. 8. Imdur 60 mg daily. 9. Lisinopril 40 mg daily. 10. Methocarbamol 500 mg twice daily. 11. Nitroglycerin 0.4 mg sublingual once daily. 12. Risperdal 5 mg daily. 13. Renvela 800 mg once daily. 14. Terazosin 5 mg once daily. 15. Amlodipine 10 mg daily. 16. Clonidine #2 patch once daily. 17. Prednisone-I do not believe he is on at this time. ALLERGIES: No known drug allergies. REVIEW OF SYSTEMS: Ten systems were reviewed and as indicated in history of present illness. PHYSICAL EXAMINATION: GENERAL: Alert and oriented x3, in no apparent distress. VITAL SIGNS: Blood pressure initially was 178/113. Pulse rate was 98, temperature 98.6 with a respiratory rate of 16, and his pulse ox was 88%. HEENT: Normocephalic/atraumatic. Pupils reactive to light. External auditory canals appear normal. Oral cavity appears dry from oral breathing. NECK: Supple. He does have about 10 cm of jugular venous distention. No lymphadenopathy. No thyromegaly. No carotid bruits. LUNGS: Decreased air entry bilaterally, rales heard in both bases. CARDIAC: S1 and S2 heard. No S3, S4. No murmurs, no rubs. ABDOMEN: Soft, nontender. No organomegaly. Positive bowel sounds. No mass, no rebound. EXTREMITIES: Showed 3+ edema; difficult to palpate his dorsalis pedis and posterior tibials. No skin rash or joint swellings noted. NEUROLOGIC: Grossly intact. LABORATORY DATA: White count 11.0 with hemoglobin 10.8 and platelet count 213. Sodium 138, potassium 4.6, chloride 93, CO2 22, BUN 64, creatinine 10.4 with a blood sugar of 75. RADIOLOGIC STUDIES: Chest x-ray showed pulmonary edema. ASSESSMENT AND PLAN: 1. End-stage renal disease with volume overload. He will be dialyzed today and we will try to remove about 4 liters of fluid as tolerated. 2. Hypertension related to his volume expansion. We will resume his medications. 3. Coronary artery disease. Continue on aspirin, Plavix, beta melissa and isosorbide. SUHAIL:caroline Job ID: [id number] Doc ID: [id number] Levon Pope MD
[2019-07-08] MEDS ORDERED: SEVELAMER 800 MG TABLET PO SCH (11:30)
--- NOTE | 2019-07-08 13:39 | Internal Med Progress Note ---
Medical - PN: Subj Patient information: Note initiated : 07/08/19 at 1:37 pm Service Date, if different from initiated Date: [] Patient: Elias Huffman a 49 y/o M admitted on 07/07/19 for Missed Dialysis Appt. Chief Complaint: [] Interval history: Mr. Huffman is a 49 year old M with a history of ESRD on HD 3 times a week/hypertension/CAD with PCI/COPD who presents to the ER after missing his dialysis yesterday with symptoms of profound shortness of breath, pursed lip breathing and cough. Per history patient overslept and missed his scheduled hemodialysis. Over the next 24 hours he has become increasingly fatigued, swollen and short of breath. This morning he could barely get out of the bed due to exhaustion along with progressive dyspnea and cough. He denies changes in medications. He is experiencing difficulty laying flat. He denies associated fever, productive sputum, headache photophobia but endorses to intermittent diarrhea. He has not missed dialysis in the past. He continues to smoke. Denies alcohol. He is accompanied with his daughter. Initial work-up in the ER was consistent with acute pulmonary edema secondary to volume overload. Patient was profoundly hypoxic requiring 3.5 L oxygen to maintain sats. He refused noninvasive ventilation due to claustrophobia. Nephrology was consulted for emergent hemodialysis. Hospitalist service was consulted for admission. 07/08-patient clinically improving following hemodialysis. Systolics remains elevated. Started on home medications. No overnight fever chills chest pain or headache. Doing physical therapy. Status post 3100 cc fluid removal yesterday. Nephrology recommends additional dialysis and continued hospitalization for 24 to 48 hours. Slight elevation in white count of 12,000. Check procalcitonin/chest imaging in a.m. - Constitutional Vitals: Vital Signs Temp Pulse Resp BP Pulse Ox 97.9 F 89 20 171/115 90 07/08/19 13:00 07/08/19 13:33 07/08/19 13:00 07/08/19 13:33 07/08/19 13:00 Period Temp Pulse Resp BP Sys/Kaplan Pulse Ox Last 24 Hr 97.4 F-98.9 F 58-104 16-24 94-217/07-151 85-100 Intake and Output 07/07/19 07/08/19 07/08/19 21:59 05:59 13:59 Intake Total 460 Output Total 6200 Balance -5740 Weight 176 lb Intake & Output: Intake & Output 07/07/19 07/08/19 07/08/19 21:59 05:59 13:59 Intake Total 460 Output Total 6200 Balance -5740 Weight 176 lb Intake: Oral 460 Output: Hemodialysis UF 6200 Other: Meal Breakfast Percent of Meal Consumed 100% Feeding Ability Independent # Voids 1 1 General appearance: cooperative, no acute distress Exam: Alert oriented Nonlabored breathing No telemetry events No anxiety Medical - PN: Obj Da - Labs CBC & Chem 7: 07/08/19 04:13 07/08/19 04:13 Labs: Abnormal Lab Results 07/08/19 07/08/19 07/07/19 04:13 04:13 18:04 WBC 12.0 H RBC 3.55 L Hgb 10.8 L Hct 32.3 L RDW 20.3 H Gran % Lymph % (Auto) Gran # Lymph # (Auto) Seg Neutrophils % 88 H Lymphocytes % 3 L Nucleated RBCs 1 H RBC Morphology Abnorm A Anisocytosis 1+ A Chloride 95 L Carbon Dioxide 19 L Anion Gap 25.0 H BUN 70 H Creatinine 11.1 H* Phosphorus 6.6 H* Direct Bilirubin 0.4 H GGT 172 H Alkaline Phosphatase 147 H Lactate Dehydrogenase 339 H Urine Protein 100 A Urine Occult Blood 0.03 A Urine RBC 4 H 07/07/19 07/07/19 17:08 17:08 WBC RBC 3.55 L Hgb 10.8 L Hct 32.0 L RDW 20.3 H Gran % 87.8 H Lymph % (Auto) 6.0 L Gran # 9.6 H Lymph # (Auto) 0.7 L Seg Neutrophils % Lymphocytes % Nucleated RBCs RBC Morphology Anisocytosis Chloride 93 L Carbon Dioxide Anion Gap 23.0 H BUN 64 H Creatinine 10.4 H* Phosphorus Direct Bilirubin GGT Alkaline Phosphatase 124 H Lactate Dehydrogenase Urine Protein Urine Occult Blood Urine RBC Meds: Medications Acetaminophen (Tylenol) 650 mg PO Q4-6HP PRN PRN Reason: PAIN/FEVER > 101 Albuterol Sulfate (Ventolin) 1 puff INH Q4-6HP PRN PRN Reason: Shortness Of Breath Amlodipine Besylate (Norvasc) 10 mg PO DAILY [facility] Aspirin (Aspirin) 324 mg PO DAILY [facility] Atorvastatin Calcium (Lipitor) 40 mg PO HS [facility] Calcium Carbonate/Glycine (Tums) 1,000 mg CHEWED DAILY [facility]vedil[facility] ([facility]g) [facility] Last Admin: 07/08/19 09:32 Dose: 25 mg Documented by: Cinacalc[facility]ar) [facility] Clonidine HCl (Catapres Tts 2) 1 patch TD Mo@1000 [facility] Clopidogrel Bisulfate (Plavix) 75 mg PO DAILY [facility] Last Admin: 07/08/19 09:32 Dose: 75 mg Documented by: Cyanocobalamin (Vitamin B-12) 1,000 mcg PO BID [facility] Stop: 07/12/19 09:01 Last Admin: 07/08/19 09:33 Dose: Not Given Documented by: Diltiazem HCl (Cardizem Cd) 180 mg PO DAILY [facility] Docusate Sodium (Colace) 100 mg PO BID [facility] Last Admin: 07/08/19 09:33 Dose: Not Given Documented by: Fenofibrate (Antara) 43 mg PO DAILY [facility] Furosemide (Lasix) 40 mg PO DAILY [facility] Gabapentin (Neurontin) 100 mg PO DAILY [facility] Gabapentin (Neurontin) 200 mg PO HS [facility] Hydralazine HCl (Apresoline) 10 mg IV Q4-6HP PRN PRN Reason: Hypertension Last Admin: 07/08/19 02:55 Dose: 10 mg Documented by: Acetaminophen (Ofirmev) 1,000 mg in 100 mls @ 200 mls/hr IV Q6HP PRN PRN Reason: PAIN/FEVER > 101 Isosorbide Mononitrate (Imdur) 60 mg PO DAILY [facility] Lisinopril (Zestril) 40 mg PO DAILY [facility] Minoxidil (Minoxidil) 2.5 mg PO BID [facility] Multivit/Ca Carb/B Cmplx/FA/Prenat (Diatx) 1 tab PO DAILY [facility] Nicotine (Nicoderm) 21 mg TOPICAL DAILY@1000 [facility] Nitroglycerin (Nitrostat) 0.4 mg SL Q5M PRN PRN Reason: Chest Pain Non-Formulary Medication (Risperdal) 5 mg PO DAILY [facility] Non-Formulary Medication (Folic Acid/Vit Bcomp,C [Dialyvite Tablet]) 1 tab PO DAILY [facility] Ondansetron HCl (Zofran) 4 mg IV Q4-6HP PRN PRN Reason: Nausea And Vomiting Risperidone (Risperdal) 0.5 mg PO BID [facility] Senna/Docusate Sodium (Senna Plus Tablet) 1 tab PO HS [facility] Last Admin: 07/07/19 21:23 Dose: 1 tab Documented by: Sevelamer Carbonate (Renvela) 800 mg PO AC [facility] Last Admin: 07/08/19 11:49 Dose: 800 mg Documented by: Sevelamer Carbonate (Renvela) 3,200 mg PO TIDCC [facility] Sodium Chloride (Saline Flush) 10 ml IV Q8 [facility] Last Admin: 07/08/19 04:41 Dose: 10 ml Documented by: Thiamine HCl (Vitamin B1) 100 mg PO DAILY [facility] Medical - PN: A/P - Time Spent With Patient Total time spent is greater than 50% in coordination of care (as documented) at patient's floor/unit and/or counseling patient: 25 - 35 minutes (1) Pulmonary edema Status: Acute Assessment and plan: * Acute pulmonary edema secondary to volume overload-clinically improved. Status post 3100 cc fluid removal with ongoing hemodialysis. * Hypoxic respiratory failure secondary above-patient refused noninvasive ventilation. Now on room air * Hypertensive urgency with systolics over 180. On management per nephrology. Likely precipitated by volume overload * Hyperlipidemia on statin * History of CAD on aspirin/Plavix statin/beta-melissa/isosorbide/minoxidil * Chronic pain on methocarbamol as needed opioid * BPH continue tamsulosin * Full code * Prophylaxis SCDs/ambulation. High risk bleed in light of dual antiplatelet Plan * HD per nephrology * Pre-existing well condition management and home meds * PT OT/nutrition support * Discharge planning per case management Current Visit: Yes Medical - PN: Qual - VTE Deep Vein Thrombosis/Pulmonary Embolism Present on Admission: No
[2019-07-08] MEDS: amLODIPine 10 MG TABLET PO SCH (15:05)
[2019-07-08] MEDS: ASPIRIN 81 MG TAB.CHEW PO SCH (16:03)
[2019-07-08] MEDS: ISOSORBIDE MONONITRATE 60 MG TAB.XL.24H PO SCH (16:04)
[2019-07-08] MEDS: THIAMINE 100 MG TABLET PO SCH (16:04)
[2019-07-08] MEDS: NICOTINE 21 MG PATCH TOPICAL SCH (16:04)
[2019-07-08] MEDS: FOLIC ACID/VITAMIN B COMP W-C 1 TAB TABLET PO SCH (16:04)
[2019-07-08] MEDS: SEVELAMER 800 MG TABLET PO SCH (17:36)
[2019-07-08] MEDS ORDERED: ATORVASTATIN 20 MG TABLET PO SCH (21:00)
[2019-07-08] MEDS: risperiDONE 0.25 MG TABLET PO SCH (21:01)
[2019-07-08] MEDS: SENNOSIDES/DOCUSATE SODIUM 1 TAB TABLET PO SCH (21:01)
[2019-07-08] MEDS: GABAPENTIN 100 MG CAPSULE PO SCH (21:02)
[2019-07-08] MEDS: MINOXIDIL 2.5 MG TABLET PO SCH (21:03)
[2019-07-09 05:34] LABS: Hematocrit 30.6 % (41.0-55.0); Hemoglobin 10.1 g/dL (13.5-16.5); Mean Cell Volume 91.1 fL (80.0-100.0); Mean Platelet Volume 7.7 fL (7.4-10.4); Platelet Count 178 K/mcL (140-440); RBC 3.36 M/mcL (4.50-5.90); Red Cell Distribution Width 20.7 % (11.5-14.5); WBC 6.7 K/mcL (4.5-11.0)
[2019-07-09 06:14] LABS: ALT/SGPT 20 U/l (0-40); AST/SGOT 24 U/l (0-37); Albumin 3.9 gm/dL (3.2-5.2); Albumin/Globulin Ratio 1.6 (1.0-2.3); Alkaline Phosphatase 115 U/L (39-117); Bilirubin,Direct 0.2 mg/dL (0.0-0.3); Bilirubin,Total 0.8 mg/dL (0.0-1.0); Blood Urea Nitrogen 36 mg/dl (6-20); Calcium 9.1 mg/dl (8.6-10.4); Carbon Dioxide 28 mmol/L (22-30); Chloride 97 mmol/L (96-108); Globulin 2.5 gm/dL (2.2-3.7); Glomerular Filtration Rate 9; Glucose 73 mg/dL (70-105); Lactate Dehydrogenase 269 U/L (94-250); Phosphorous 5.3 mg/dL (2.7-4.5); Triglycerides 59 mg/dl (<150); Uric Acid 3.5 mg/dL (2.5-8.0)
[2019-07-09 06:48] LABS: Anisocytosis 1+ (NONE SEEN); Band Neutrophils % 1 % (0-10); Basophils % (Manual) 1 % (0-2); Eosinophils % (Manual) 2 % (0-7); Lymphocytes % 8 % (15-49); Monocytes % (Manual) 10 % (1-12); Platelet Estimate NORMAL (NORMAL); Poikilocytosis 1+ (NONE SEEN); RBC Fragments FEW (NONE SEEN); RBC Morphology ABNORM (NORMAL); Segmented Neutrophils % 78 % (38-78)
[2019-07-09] MEDS: SEVELAMER 800 MG TABLET PO SCH ×3 (07:40→17:49)
[2019-07-09] MEDS: CINACALCET 30 MG TABLET PO SCH (07:41)
[2019-07-09] MEDS: CARVEDILOL 12.5 MG TABLET PO SCH ×2 (07:41→17:49)
[2019-07-09] MEDS: 0.9 % SODIUM CHLORIDE 10 ML SYRINGE IV SCH ×3 (07:44→20:53)
[2019-07-09] MEDS: risperiDONE 0.25 MG TABLET PO SCH ×2 (08:23→20:45)
[2019-07-09] MEDS: DILTIAZEM 180 MG CAP.XL.24H PO SCH (08:23)
[2019-07-09] MEDS: DOCUSATE SODIUM 100 MG CAPSULE PO SCH ×2 (08:25→20:45)
[2019-07-09] MEDS: CLOPIDOGREL 75 MG TABLET PO SCH (08:25)
[2019-07-09] MEDS: FENOFIBRATE 43 MG CAPSULE PO SCH (08:25)
[2019-07-09] MEDS: CYANOCOBALAMIN (VITAMIN B-12) 500 MCG TABLET PO SCH ×2 (08:25→20:44)
[2019-07-09] MEDS: amLODIPine 10 MG TABLET PO SCH (08:25)
[2019-07-09] MEDS: ASPIRIN 81 MG TAB.CHEW PO SCH (08:26)
[2019-07-09] MEDS: GABAPENTIN 100 MG CAPSULE PO SCH ×2 (08:26→20:44)
[2019-07-09] MEDS: THIAMINE 100 MG TABLET PO SCH (08:26)
[2019-07-09] MEDS: FUROSEMIDE 80 MG TABLET PO SCH (08:26)
[2019-07-09] MEDS: ISOSORBIDE MONONITRATE 60 MG TAB.XL.24H PO SCH (08:26)
[2019-07-09] MEDS: FOLIC ACID/VITAMIN B COMP W-C 1 TAB TABLET PO SCH (08:26)
[2019-07-09] MEDS: NICOTINE 21 MG PATCH TOPICAL SCH (08:54)
[2019-07-09] MEDS: MINOXIDIL 2.5 MG TABLET PO SCH ×3 (08:54→20:44)
[2019-07-09] MEDS ORDERED: [UNRECOGNIZED DRUG - OTHER] PO SCH (09:00)
[2019-07-09] MEDS ORDERED: FOLIC ACID PO SCH (09:00)
[2019-07-09] MEDS ORDERED: VIT BCOMP C PO SCH (09:00)
--- NOTE | 2019-07-09 09:01 | Nephrology Progress Note ---
Subjective Patient information: Note initiated : 07/09/19 at 8:57 am Service Date, if different from initiated Date: [] Patient: Elias Huffman 49 y/o M admitted on 07/07/19 for Missed Dialysis Appt. Chief Complaint: Breathing is better, but bp still a little bit high. Still on oxygen. CXR pending. Objective - Vital Signs Vital signs: Vital Signs Temp Pulse Pulse Resp BP BP BP 07/09/19 08:00 85 07/09/19 03:13 97.7 F 85 16 158/103 07/08/19 23:47 98.3 F 90 20 150/95 07/08/19 19:56 07/08/19 19:55 98.1 F 90 18 148/93 07/08/19 17:00 98.6 F 95 H 20 183/105 07/08/19 15:09 97.5 F 94 H 174/117 07/08/19 14:57 93 H 176/122 07/08/19 14:45 92 H 173/119 07/08/19 14:28 90 171/116 07/08/19 14:17 94 H 167/111 07/08/19 14:02 89 168/116 07/08/19 13:47 88 177/117 07/08/19 13:33 89 171/115 07/08/19 13:16 87 167/110 07/08/19 13:02 86 169/116 07/08/19 13:00 97.9 F 87 20 167/110 07/08/19 12:46 82 163/111 07/08/19 12:32 85 165/106 07/08/19 12:19 86 164/113 07/08/19 12:03 88 154/103 07/08/19 11:46 87 144/07 07/08/19 11:31 91 H 160/110 07/08/19 11:18 87 161/110 07/08/19 11:06 97.9 F 90 161/96 07/08/19 09:10 176/86 Pulse Ox 07/09/19 08:00 07/09/19 03:13 95 07/08/19 23:47 91 07/08/19 19:56 90 07/08/19 19:55 90 07/08/19 17:00 93 07/08/19 15:09 07/08/19 14:57 07/08/19 14:45 07/08/19 14:28 07/08/19 14:17 07/08/19 14:02 07/08/19 13:47 07/08/19 13:33 07/08/19 13:16 07/08/19 13:02 07/08/19 13:00 90 07/08/19 12:46 07/08/19 12:32 07/08/19 12:19 07/08/19 12:03 07/08/19 11:46 07/08/19 11:31 07/08/19 11:18 07/08/19 11:06 07/08/19 09:10 Intake and Output 07/08/19 07/09/19 07/09/19 21:59 05:59 13:59 Intake Total 150 150 Output Total 6244 0 Balance -6094 150 Intake: Oral 150 150 Output: Void Amount 0 0 Hemodialysis UF 6244 Other: Weight 174 lb Intake & Output: Intake & Output 07/08/19 07/09/19 07/09/19 21:59 05:59 13:59 Intake Total 150 150 Output Total 6244 0 Balance -6094 150 Weight 174 lb Intake: Oral 150 150 Output: Void Amount 0 0 Hemodialysis UF 6244 - General Appearance General appearance: well-developed EENT: ATNC Neck: no JVD Respiratory: no kyphosis Cardiology: diastolic murmur Integumentary: no rash Neurologic: no focal deficit - Lab 07/09/19 04:13 07/09/19 04:13 Most recent lab results Calcium 9.1 mg/dl (8.6-10.4) 07/09/19 04:13 Phosphorus 5.3 mg/dL (2.7-4.5) H 07/09/19 04:13 Magnesium 2.1 mg/dL (1.6-2.5) 07/09/19 04:13 Assessment and Plan (1) Volume overload Status: Resolved Comment: Volume overloaded with missed dialysis treatment. Electrolytes ok. Was dialysed with fluid removal of 3600ml with ultrafiltration HD yesterday with 2.9 kilos of fluid removal. Will dialyse again today for some more fluid removal. HTN Related to volume. Keep removing fluids and restart his bp meds. Hyperphos. 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
--- NOTE | 2019-07-09 09:40 | XRay Report ---
HISTORY: Renal failure and pulmonary edema FINDINGS: The heart is moderately enlarged. There is pulmonary edema and engorgement of the central pulmonary vessels. No pleural effusion is present. No consolidating infiltrate has developed. There has been little change from 06/17/19. IMPRESSION: Persistent congestive heart failure with little change Interpreted and Authenticated by: Ryan Johnson 07/09/19
--- NOTE | 2019-07-09 12:03 | Internal Med Progress Note ---
Medical - PN: Subj Patient information: Note initiated : 07/09/19 at 12:01 pm Service Date, if different from initiated Date: [] Patient: Elias Huffman a 49 y/o M admitted on 07/07/19 for Missed Dialysis Appt. Chief Complaint: [] Interval history: Mr. Huffman is a 49 year old M with a history of ESRD on HD 3 times a week/hypertension/CAD with PCI/COPD who presents to the ER after missing his dialysis yesterday with symptoms of profound shortness of breath, pursed lip breathing and cough. Per history patient overslept and missed his scheduled hemodialysis. Over the next 24 hours he has become increasingly fatigued, swollen and short of breath. This morning he could barely get out of the bed due to exhaustion along with progressive dyspnea and cough. He denies changes in medications. He is experiencing difficulty laying flat. He denies associated fever, productive sputum, headache photophobia but endorses to intermittent diarrhea. He has not missed dialysis in the past. He continues to smoke. Denies alcohol. He is accompanied with his daughter. Initial work-up in the ER was consistent with acute pulmonary edema secondary to volume overload. Patient was profoundly hypoxic requiring 3.5 L oxygen to maintain sats. He refused noninvasive ventilation due to claustrophobia. Nephrology was consulted for emergent hemodialysis. Hospitalist service was consulted for admission. 07/08-patient clinically improving following hemodialysis. Systolics remains elevated. Started on home medications. No overnight fever chills chest pain or headache. Doing physical therapy. Status post 3100 cc fluid removal yesterday. Nephrology recommends additional dialysis and continued hospitalization for 24 to 48 hours. Slight elevation in white count of 12,000. Check procalcitonin/chest imaging in a.m. 07/09-patient clinically improved however persistent radiological pulmonary edema/CHF. Ongoing fluid removal. Will likely discharge in 24 hours after additional hemodialysis. No fever chills. White count down from 12,000-6. - Constitutional Vitals: Vital Signs Temp Pulse Resp BP Pulse Ox 98.8 F 80 16 125/81 95 07/09/19 11:39 07/09/19 11:58 07/09/19 10:51 07/09/19 11:58 07/09/19 10:51 Period Temp Pulse Resp BP Sys/Kaplan Pulse Ox Last 24 Hr 97.5 F-98.8 F 80-95 16-20 123-183/76-122 90-95 Intake and Output 07/08/19 07/09/19 07/09/19 21:59 05:59 13:59 Intake Total 150 150 460 Output Total 6244 0 Balance -6094 150 460 Weight 174 lb Intake & Output: Intake & Output 07/08/19 07/09/19 07/09/19 21:59 05:59 13:59 Intake Total 150 150 460 Output Total 6244 0 Balance -6094 150 460 Weight 174 lb Intake: Oral 150 150 460 Output: Void Amount 0 0 Hemodialysis UF 6244 Other: Meal Breakfast Percent of Meal Consumed 100% Feeding Ability Independent General appearance: no acute distress Exam: Alert oriented Nonlabored breathing Resting comfortably No lymphedema Diminished breath sounds bases Medical - PN: Obj Da - Labs CBC & Chem 7: 07/09/19 04:13 07/09/19 04:13 Labs: Abnormal Lab Results 07/09/19 07/09/19 07/08/19 04:13 04:13 04:13 WBC RBC 3.36 L Hgb 10.1 L Hct 30.6 L RDW 20.7 H Gran % Lymph % (Auto) Gran # Lymph # (Auto) Seg Neutrophils % Lymphocytes % 8 L Nucleated RBCs RBC Morphology Abnorm A Poikilocytosis 1+ A Anisocytosis 1+ A RBC Fragments Few A Chloride 95 L Carbon Dioxide 19 L Anion Gap 25.0 H BUN 36 H 70 H Creatinine 6.4 H* 11.1 H* Phosphorus 5.3 H 6.6 H* Direct Bilirubin 0.4 H GGT 143 H 172 H Alkaline Phosphatase 147 H Lactate Dehydrogenase 269 H 339 H Urine Protein Urine Occult Blood Urine RBC 07/08/19 07/07/19 07/07/19 04:13 18:04 17:08 WBC 12.0 H RBC 3.55 L 3.55 L Hgb 10.8 L 10.8 L Hct 32.3 L 32.0 L RDW 20.3 H 20.3 H Gran % 87.8 H Lymph % (Auto) 6.0 L Gran # 9.6 H Lymph # (Auto) 0.7 L Seg Neutrophils % 88 H Lymphocytes % 3 L Nucleated RBCs 1 H RBC Morphology Abnorm A Poikilocytosis Anisocytosis 1+ A RBC Fragments Chloride Carbon Dioxide Anion Gap BUN Creatinine Phosphorus Direct Bilirubin GGT Alkaline Phosphatase Lactate Dehydrogenase Urine Protein 100 A Urine Occult Blood 0.03 A Urine RBC 4 H 07/07/19 17:08 WBC RBC Hgb Hct RDW Gran % Lymph % (Auto) Gran # Lymph # (Auto) Seg Neutrophils % Lymphocytes % Nucleated RBCs RBC Morphology Poikilocytosis Anisocytosis RBC Fragments Chloride 93 L Carbon Dioxide Anion Gap 23.0 H BUN 64 H Creatinine 10.4 H* Phosphorus Direct Bilirubin GGT Alkaline Phosphatase 124 H Lactate Dehydrogenase Urine Protein Urine Occult Blood Urine RBC Meds: Medications Acetaminophen (Tylenol) 650 mg PO Q4-6HP PRN PRN Reason: PAIN/FEVER > 101 Last Admin: 07/08/19 16:34 Dose: 650 mg Documented by: Albuterol Sulfate (Ventolin) 1 puff INH Q4-6HP PRN PRN Reason: Shortness Of Breath Amlodipine Besylate (Norvasc) 10 mg PO DAILY [facility] Last Admin: 07/09/19 08:25 Dose: 10 mg Documented by: Aspirin (Aspirin) 324 mg PO DAILY [facility] Last Admin: 07/09/19 08:26 Dose: 324 mg Documented by: [facility] Last Admin: 07/09/19 07:41 Dose: 25 mg Documented by: Cinacalcet (Sensipar) 30 mg PO [facility] Last Admin: 07/09/19 07:41 Dose: 30 mg Documented by: Clopidogrel Bisulfate (Plavix) 75 mg PO DAILY [facility] Last Admin: 07/09/19 08:25 Dose: 75 mg Documented by: Cyanocobalamin (Vitamin B-12) 1,000 mcg PO BID [facility] Stop: 07/12/19 09:01 Last Admin: 07/09/19 08:25 Dose: 1,000 mcg Documented by: Diltiazem HCl (Cardizem Cd) 180 mg PO DAILY [facility] Last Admin: 07/09/19 08:23 Dose: 180 mg Documented by: Docusate Sodium (Colace) 100 mg PO BID [facility] Last Admin: 07/09/19 08:25 Dose: 100 mg Documented by: Fenofibrate (Antara) 43 mg PO DAILY [facility] Last Admin: 07/09/19 08:25 Dose: 43 mg Documented by: Furosemide (Lasix) 80 mg PO DAILY [facility] Last Admin: 07/09/19 08:26 Dose: 80 mg Documented by: Gabapentin (Neurontin) 100 mg PO DAILY [facility] Last Admin: 07/09/19 08:26 Dose: 100 mg Documented by: Gabapentin (Neurontin) 200 mg PO [facility] Last Admin: 07/08/19 21:02 Dose: 200 mg Documented by: Hydralazine HCl (Apresoline) 10 mg IV Q4-6HP PRN PRN Reason: Hypertension Last Admin: 07/08/19 13:56 Dose: 10 mg Documented by: Acetaminophen (Ofirmev) 1,000 mg in 100 mls @ 200 mls/hr IV Q6HP PRN PRN Reason: PAIN/FEVER > 101 Isosorbide Mononitrate (Imdur) 60 mg PO DAILY [facility] Last Admin: 07/09/19 08:26 Dose: 60 mg Documented by: Minoxidil (Minoxidil) 2.5 mg PO BID [facility] Last Admin: 07/09/19 08:54 Dose: Not Given Documented by: Multivit/Ca Carb/B Cmplx/FA/Prenat (Diatx) 1 tab PO DAILY [facility] Last Admin: 07/09/19 08:26 Dose: 1 tab Documented by: Nicotine (Nicoderm) 21 mg TOPICAL DAILY@1000 [facility] Last Admin: 07/09/19 08:54 Dose: Not Given Documented by: Nitroglycerin (Nitrostat) 0.4 mg SL Q5M PRN PRN Reason: Chest Pain Ondansetron HCl (Zofran) 4 mg IV Q4-6HP PRN PRN Reason: Nausea And Vomiting Last Admin: 07/08/19 19:54 Dose: 4 mg Documented by: Risperidone (Risperdal) 0.5 mg PO BID [facility] Last Admin: 07/09/19 08:23 Dose: 0.5 mg Documented by: Senna/Docusate Sodium (Senna Plus Tablet) 1 tab PO [facility] Last Admin: 07/08/19 21:01 Dose: 1 tab Documented by: Sevelamer Carbonate (Renvela) 3,200 mg PO TIDCC [facility] Last Admin: 07/09/19 07:40 Dose: 3,200 mg Documented by: Sodium Chloride (Saline Flush) 10 ml IV Q8 [facility] [place] Last Admin: 07/09/19 07:44 Dose: 10 ml Documented by: Thiamine HCl (Vitamin B1) 100 mg PO DAILY [facility] [place] Last Admin: 07/09/19 08:26 Dose: 100 mg Documented by: Medical - PN: A/P - Time Spent With Patient Total time spent is greater than 50% in coordination of care (as documented) at patient's floor/unit and/or counseling patient: 25 - 35 minutes (1) Pulmonary edema Status: Acute Assessment and plan: * Acute pulmonary edema secondary to volume overload-clinically improved however persistent radiological findings with CHF. Continuing HD per nephrology with aggressive fluid removal * Hypoxic respiratory failure secondary above-patient refused noninvasive ventilation. Improved with hemodialysis. Now on room air * Hypertensive urgency -secondary to volume overload. Clinically improved with dialysis and home medications. Systolics around 130 * Hyperlipidemia on statin * History of CAD on aspirin/Plavix statin/beta-melissa/isosorbide/minoxidil * Chronic pain on methocarbamol as needed opioid * BPH continue tamsulosin * Full code * Prophylaxis SCDs/ambulation. High risk bleed in light of dual antiplatelet Plan * Continue HD per nephrology * Pre-existing well condition management and home meds * PT OT/nutrition support * Discharge planning per case management, likely in 24 hours. Current Visit: Yes Medical - PN: Qual - VTE Deep Vein Thrombosis/Pulmonary Embolism Present on Admission: No
--- NOTE | 2019-07-09 12:06 | Discharge Summary ---
Medical - DS: Prov Patient information: Note initiated : 07/10/19 at 07:04 am Service Date, if different from initiated Date: [] Patient: Elias Huffman 49 y/o M admitted on 07/07/19 for Missed Dialysis Appt. Chief Complaint: [] Date of admission: 07/07/19 20:20 Discharge date: 07/10/19 Consults: 07/07/19 Consult to Physician [CONS] Stat Comment: Consulting Provider: Levon Fabian Reason For Exam: Physician to Consult 07/08/19 07:35 Consult to Physician [CONS] Routine Comment: Consulting Provider: Brant Pope Reason For Exam: Physician to Consult Medical - DS: Meds - Discharge Medications Active and Home Medications: Home Medications Aspirin [[place] Aspirin] 325 mg PO DAILY 11/09/17 [History Confirmed 07/08/19 Last Taken 11/09/17 05:00 325] Clopidogrel Bisulfate [Plavix] 75 mg PO DAILY 11/09/17 [History Confirmed 07/07/19 Last Taken 07/07/19 08:00] Furosemide [Lasix] 80 mg PO DAILY 11/09/17 [History Confirmed 07/08/19 Last Taken 07/07/19 08:00] Isosorbide Mononitrate [Imdur] 60 mg PO DAILY 11/09/17 [History Confirmed 07/08/19 Last Taken 11/09/17 05:00] Nitroglycerin 0.4 mg SL Q5M PRN 11/09/17 [History Confirmed 07/08/19 Last Taken 09/11/17 06:00] Sevelamer [Renvela] 1,600 mg PO PRN PRN 11/09/17 [History Confirmed 07/08/19 Last Taken 07/07/19 08:00] amLODIPine [Norvasc] 10 mg PO DAILY 11/09/17 [History Confirmed 07/07/19 Last Taken 07/07/19 08:00] Cinacalcet [Sensipar] 30 mg PO QAMCC 07/08/19 [History Confirmed 07/08/19 Last Taken Unknown] Diltiazem [Cardizem Cd] 180 mg PO DAILY 07/08/19 [History Confirmed 07/08/19 Last Taken Unknown] Folic Acid/Vit Bcomp,C [Dialyvite Tablet] 1 tab PO DAILY 07/08/19 [History Confirmed 07/08/19 Last Taken Unknown] Gabapentin [Neurontin] 100 mg PO DAILY 07/08/19 [History Confirmed 07/08/19 Last Taken Unknown] Gabapentin [Neurontin] 200 mg PO HS 07/08/19 [History Confirmed 07/08/19 Last Taken Unknown] Minoxidil 2.5 mg PO BID 07/08/19 [History Confirmed 07/08/19 Last Taken Unknown] Sevelamer [Renvela] 3,200 mg PO TIDCC 07/08/19 [History Confirmed 07/08/19 Last Taken Unknown] risperiDONE [Risperdal] 0.5 mg PO BID 07/08/19 [History Confirmed 07/08/19 Last Taken Unknown] Carvedilol [Coreg] 25 mg PO BIDCC #0 tablet 07/09/19 [Rx Last Taken Unknown] Medical - DS: Hosp Hospital Course: Discharge diagnosis * Acute pulmonary edema secondary to volume overload-clinically improved with hemodialysis. Discharge home with continued hemodialysis as scheduled by nephrology * Hypoxic respiratory failure secondary above-resolved with hemodialysis * Hypertensive urgency -secondary to volume overload. Clinically resolved with hemodialysis and home dose anti-ypertensives * Hyperlipidemia on statin * History of CAD managed on aspirin/Plavix statin/beta-melissa/isosorbide/min oxidil * Chronic pain remains stable on methocarbamol as needed opioid * BPH managed on tamsulosin Brief hospital course Mr. Huffman is a 49 year old M with a history of ESRD on HD 3 times a week/hy pertension/CAD with PCI/COPD who presents to the ER after missing his dialysis yesterday with symptoms of profound shortness of breath, pursed lip breathing and cough. Per history patient overslept and missed his scheduled hemodialysis. Over the next 24 hours he has become increasingly fatigued, swollen and short of breath. This morning he could barely get out of the bed due to exhaustion along with progressive dyspnea and cough. He denies changes in medications. He is experiencing difficulty laying flat. He denies associated fever, productive sputum, headache photophobia but endorses to intermittent diarrhea. He has not missed dialysis in the past. He continues to smoke. Denies alcohol. He is accompanied with his daughter. Initial work-up in the ER was consistent with acute pulmonary edema secondary to volume overload. Patient was profoundly hypoxic requiring 3.5 L oxygen to maintain sats. He refused noninvasive ventilation due to claustrophobia. Nephrology was consulted for emergent hemodialysis. Hospitalist service was consulted for admission. 07/08-patient clinically improving following hemodialysis. Systolics remains elevated. Started on home medications. No overnight fever chills chest pain or headache. Doing physical therapy. Status post 3100 cc fluid removal yesterday. Nephrology recommends additional dialysis and continued hospitalization for 24 to 48 hours. Slight elevation in white count of 12,000. Check procalcitonin/chest imaging in a.m. 07/09-patient clinically improved however persistent radiological pulmonary edema/CHF. Ongoing fluid removal. Will likely discharge in 24 hours after additional hemodialysis. No fever chills. White count down from 12,000-6. 07/10-doing well. Status post dialysis. Ongoing physical therapy and amb ulating. Tolerating diet. Discharging with advised to follow-up with nephrology and continued hemodialysis outpatient. Discharge diagnosis: . - Time Spent with Patient Total time spent providing and/or coordinating discharge services: Greater than 30 minutes Medical - DS: Exam - Constitutional Vitals: Vital Signs Temp Pulse Pulse Resp BP BP Pulse Ox 07/09/19 11:58 80 125/81 07/09/19 11:39 98.8 F 80 135/76 07/09/19 10:51 97.7 F 16 123/80 95 07/09/19 08:00 98.3 F 85 16 148/96 94 07/09/19 03:13 97.7 F 85 16 158/103 95 07/08/19 23:47 98.3 F 90 20 150/95 91 07/08/19 19:56 90 07/08/19 19:55 98.1 F 90 18 148/93 90 07/08/19 17:00 98.6 F 95 H 20 183/105 93 07/08/19 15:09 97.5 F 94 H 174/117 07/08/19 14:57 93 H 176/122 07/08/19 14:45 92 H 173/119 07/08/19 14:28 90 171/116 07/08/19 14:17 94 H 167/111 07/08/19 14:02 89 168/116 07/08/19 13:47 88 177/117 07/08/19 13:33 89 171/115 07/08/19 13:16 87 167/110 07/08/19 13:02 86 169/116 07/08/19 13:00 97.9 F 87 20 167/110 90 07/08/19 12:46 82 163/111 07/08/19 12:32 85 165/106 07/08/19 12:19 86 164/113 Intake and Output 07/08/19 07/09/19 07/09/19 21:59 05:59 13:59 Intake Total 150 150 460 Output Total 6244 0 Balance -6094 150 460 Intake: Oral 150 150 460 Output: Void Amount 0 0 Hemodialysis UF 6244 Other: Meal Breakfast Percent of Meal Consumed 100% Feeding Ability Independent Weight 174 lb Medical - DS: Data Labs on day of discharge: Labs from last 24 hours 07/09/19 07/09/19 07/08/19 04:13 04:13 13:49 WBC 6.7 RBC 3.36 L Hgb 10.1 L Hct 30.6 L MCV 91.1 MCH 30.0 MCHC 33.0 RDW 20.7 H Plt Count 178 MPV 7.7 Total Counted 100 Seg Neutrophils % 78 Band Neutrophils % 1 Lymphocytes % 8 L Monocytes % (Manual) 10 Eosinophils % (Manual) 2 Basophils % (Manual) 1 Platelet Estimate Normal RBC Morphology Abnorm A Poikilocytosis 1+ A Anisocytosis 1+ A RBC Fragments Few A Sodium 139 Potassium 4.5 Chloride 97 Carbon Dioxide 28 Anion Gap 14.0 BUN 36 H Creatinine 6.4 H* GFR Calculation 9 Glucose 73 Uric Acid 3.5 Calcium 9.1 Phosphorus 5.3 H Magnesium 2.1 Total Bilirubin 0.8 Direct Bilirubin 0.2 GGT 143 H AST 24 ALT 20 Alkaline Phosphatase 115 Lactate Dehydrogenase 269 H Total Protein 6.4 Albumin 3.9 Globulin 2.5 Albumin/Globulin Ratio 1.6 Triglycerides 59 Procalcitonin 0.18 Medical - DS: A/P - Patient/Caregiver Discharge Instructions Activity: increase activity as tolerated Diet: Renal Additional Instructions: Continue hemodialysis per nephrology Follow-up PCP in 5 to 7 days Increase activity as tolerated. Continue with renal diet. - Problem Maintenance (1) Pulmonary edema Status: Acute Qualifiers: Chronicity: acute Qualified Code(s): J81.0 - Acute pulmonary edema - Follow up Plan Disposition: Home, Self-Care Care Plan Goals: This discharge packet is provided to you to help keep you informed about your care. We want to ensure you get everything you need when you go home. You will also be receiving a call from us in a few days to follow up with you and see how you are doing since your discharge. This gives us a chance to listen to any concerns you maybe experiencing since you were discharged or any additional needs you may have, as well as providing us feedback on your care experience. We strive to always provide excellent care and thank you for your feedback and for choosing [facility]. Prognosis: Fair Rehab Potential: Fair I certify that the patient requires SNF services: No Overall status at discharge: patient is progressing back to baseline Medical - DS: Qual - VTE Deep Vein Thrombosis/Pulmonary Embolism Present on Admission: No
[2019-07-09] MEDS: SENNOSIDES/DOCUSATE SODIUM 1 TAB TABLET PO SCH (20:45)
[2019-07-10 05:38] LABS: Hematocrit 31.9 % (41.0-55.0); Hemoglobin 10.4 g/dL (13.5-16.5); Mean Cell Volume 91.5 fL (80.0-100.0); Mean Corpuscular HGB Conc 32.7 g/dL (31.0-36.0); Mean Platelet Volume 7.5 fL (7.4-10.4); Platelet Count 173 K/mcL (140-440); RBC 3.48 M/mcL (4.50-5.90); Red Cell Distribution Width 20.3 % (11.5-14.5)
[2019-07-10] MEDS: 0.9 % SODIUM CHLORIDE 10 ML SYRINGE IV SCH (05:57)
[2019-07-10 06:13] LABS: ALT/SGPT 20 U/l (0-40); AST/SGOT 26 U/l (0-37); Albumin 3.7 gm/dL (3.2-5.2); Albumin/Globulin Ratio 1.3 (1.0-2.3); Alkaline Phosphatase 111 U/L (39-117); Bilirubin,Direct < 0.2 mg/dL (0.0-0.3); Bilirubin,Total 0.5 mg/dL (0.0-1.0); Blood Urea Nitrogen 33 mg/dl (6-20); Calcium 8.8 mg/dl (8.6-10.4); Carbon Dioxide 24 mmol/L (22-30); Chloride 97 mmol/L (96-108); Globulin 2.8 gm/dL (2.2-3.7); Glomerular Filtration Rate 13; Glucose 69 mg/dL (70-105); Lactate Dehydrogenase 281 U/L (94-250); Phosphorous 4.9 mg/dL (2.7-4.5); Triglycerides 60 mg/dl (<150); Uric Acid 3.4 mg/dL (2.5-8.0)
[2019-07-10 06:37] LABS: Anisocytosis 1+ (NONE SEEN); Eosinophils % (Manual) 1 % (0-7); Lymphocytes % 14 % (15-49); Monocytes % (Manual) 6 % (1-12); Platelet Estimate NORMAL (NORMAL); RBC Morphology ABNORM (NORMAL); Segmented Neutrophils % 79 % (38-78)
[2019-07-10] MEDS: MINOXIDIL 2.5 MG TABLET PO SCH (08:21)
[2019-07-10] MEDS: DILTIAZEM 180 MG CAP.XL.24H PO SCH (08:21)
[2019-07-10] MEDS: risperiDONE 0.25 MG TABLET PO SCH (08:21)
[2019-07-10] MEDS: SEVELAMER 800 MG TABLET PO SCH (08:21)
[2019-07-10] MEDS: ASPIRIN 81 MG TAB.CHEW PO SCH (08:22)
[2019-07-10] MEDS: FUROSEMIDE 80 MG TABLET PO SCH (08:22)
[2019-07-10] MEDS: CINACALCET 30 MG TABLET PO SCH (08:22)
[2019-07-10] MEDS: amLODIPine 10 MG TABLET PO SCH (08:22)
[2019-07-10] MEDS: FENOFIBRATE 43 MG CAPSULE PO SCH (08:22)
[2019-07-10] MEDS: FOLIC ACID/VITAMIN B COMP W-C 1 TAB TABLET PO SCH (08:22)
[2019-07-10] MEDS: GABAPENTIN 100 MG CAPSULE PO SCH (08:22)
[2019-07-10] MEDS: THIAMINE 100 MG TABLET PO SCH (08:22)
[2019-07-10] MEDS: ISOSORBIDE MONONITRATE 60 MG TAB.XL.24H PO SCH (08:22)
[2019-07-10] MEDS: DOCUSATE SODIUM 100 MG CAPSULE PO SCH (08:22)
[2019-07-10] MEDS: CARVEDILOL 12.5 MG TABLET PO SCH (08:22)
[2019-07-10] MEDS: CLOPIDOGREL 75 MG TABLET PO SCH (08:22)
[2019-07-10] MEDS: CYANOCOBALAMIN (VITAMIN B-12) 500 MCG TABLET PO SCH (08:22)
[2019-07-10] MEDS: NICOTINE 21 MG PATCH TOPICAL SCH (09:54)
[2019-07-13] MEDS ORDERED: cloNIDine TTS 2 1 PATCH PATCH TD SCH (10:00)
== END 2019-07-10 10:25 | disposition home or self-care (01) | DRG 189 ==
LOC: ED 16:18 → MEDSUR 20:20
PROVIDERS: ADMIT Internal Medicine; ATTEND Internal Medicine

== ENCOUNTER 2019-08-30 13:33 | Observation (INO) ==
[2019-08-30] MEDS ORDERED: DEXTROSE 31 GM ORAL.SUSP PO PRN (13:53)
[2019-08-30] MEDS ORDERED: DEXTROSE 50% 50 ML VIAL IV PRN (13:53)
[2019-08-30] MEDS ORDERED: ACETAMINOPHEN 650 MG/65 ML BOTTLE IV PRN (13:53)
[2019-08-30] MEDS ORDERED: ONDANSETRON 4 MG/2 ML VIAL IV PRN (13:53)
--- NOTE | 2019-08-30 13:59 | Internal Med History&Physical ---
Medical - H&P: HPI Patient information: Note initiated : 08/30/19 at 1:54 pm Service Date, if different from initiated Date: [] Patient: Elias Huffman a 49 y/o M admitted on 08/30/19 for Kidney Pain. Chief Complaint: [] Chief complaint: weakness, abd and back pain History of present illness: Mr. Huffman is a 49 year old M with a history of ESRD managed by Dr. Fabian on HD 3 X week/hypertension/CAD/COPD who presents to [facility] with vague symptoms including abdominal pain/back pain and weakness that started 2 days prior to presentation. Patient lives along with girlfriend and has not been feeling well. He denies associated fever, headache, productive sputum or diarrhea. He denies joint pain rash. Initial work-up in the ER was essentially unremarkable with negative abdominal CT however biochemical profile revealed potassium 6.2. Patient underwent hyperkalemia protocol without improvement on potassium recheck. Subsequently nephrology was consulted and advised to transfer patient to [facility] for hemodialysis in light of life-threatening hyperkalemia. Subsequently hospitalist service at [facility] was consulted by [facility]. A verbal phone signout was obtained. Patient was accepted and received to [facility] in stable state. Notably patient during the hyperkalemia protocol was administered insulin leading to hypoglycemia and subsequently 4 ampoules of D50 were administered and also during transit to [facility]. On arrival patient is sedated and drowsy. Initial blood sugars around 110. Patient endorses that he is hungry. He has not missed dialysis in in the recent few days. He endorses to smoking. Denies alcohol. No family members present Review of systems A 10 point review of system was performed and is negative except for one discussed above Medical - H&P: PMH Medical history: history: Hypertension End-stage renal disease due to hypertensive nephropathy on hemodialysis Saturday Coronary artery disease status post stenting Negative MPI 11/08/[address] [facility] in [place] COPD Hypercholesterolemia Diastolic heart failure Chronic anemia Schizoaffective disorder Gastroesophageal reflux disease Polysubstance abuse Surgical history: Status post cholecystectomy Status post left arm fistula Pertinent family history: Hypertension Social history: The patient lives with his girlfriend. He smokes 10-12 cigarettes a day. chews tobacco smokes marijuana. Medical - H&P: Meds Home Medications Medication Instructions Recorded Confirmed Type Aspirin [[facility] Aspirin] 325 mg PO DAILY 11/09/17 08/30/19 History Clopidogrel Bisulfate [Plavix] 75 mg PO DAILY 11/09/17 08/30/19 History Furosemide [Lasix] 80 mg PO DAILY 11/09/17 08/30/19 History Isosorbide Mononitrate [Imdur] 60 mg PO DAILY 11/09/17 08/30/19 History Nitroglycerin 0.4 mg SL Q5M PRN 11/09/17 08/30/19 History Sevelamer [Renvela] 1,600 mg PO PRN PRN 11/09/17 08/30/19 History amLODIPine [Norvasc] 10 mg PO BID 11/09/17 08/30/19 History Cinacalcet [Sensipar] 30 mg PO QAMCC 07/08/19 08/30/19 History Diltiazem [Cardizem Cd] 180 mg PO DAILY 07/08/19 08/30/19 History Folic Acid/Vit Bcomp,C [Dialyvite 1 tab PO DAILY 07/08/19 08/30/19 History Tablet] Gabapentin [Neurontin] 100 mg PO DAILY 07/08/19 08/30/19 History Gabapentin [Neurontin] 200 mg PO HS 07/08/19 08/30/19 History Minoxidil 2.5 mg PO BID 07/08/19 08/30/19 History Sevelamer [Renvela] 2,400 mg PO TIDCC 07/08/19 08/30/19 History risperiDONE [Risperdal] 0.5 mg PO BID 07/08/19 08/30/19 History Carvedilol [Coreg] 25 mg PO BIDCC #0 tab 07/09/19 08/30/19 Rx Albuterol Sulfate [Ventolin] 2 puff INH Q2HP PRN 08/30/19 08/30/19 History Atorvastatin Calcium 10 mg PO QHS 08/30/19 08/30/19 History cloNIDine 1 mg TOPICAL WEEKLY 08/30/19 08/30/19 History Allergies Allergy/AdvReac Type Severity Reaction Status Date / Time No Known Drug Allergies Allergy Verified 07/07/19 16:26 Medical - H&P: Exam - Constitutional Vitals: Temp Resp BP Pulse Ox 97.5 F 16 146/91 98 10/20/19 13:52 08/30/19 13:52 08/30/19 13:52 08/30/19 13:52 General appearance: no acute distress Exam: Drowsy and lethargic Head normocephalic Oral cavity dry no ear nose discharge Eye movement symmetrical Neck no lymphadenopathy S1-S2 regular rhythm Diminished breath sounds Abdomen soft nontender Lower extremity pitting lymphedema No joint swelling erythema Skin no suspicious lesion Psych drowsy and barely able to open eyes but no agitation Neuro nonfocal Medical - H&P: Reslt - Labs CBC & Chem 7: 08/31/19 04:30 08/31/19 04:30 Medical - H&P: A/P (1) Acute hyperkalemia Current visit: Yes Status: Acute * Acute hyperkalemia-status post hyperkalemia protocol with potassium at 6.1. Admitted for emergent hemodialysis. Continue telemetry monitoring. Nephrology consulted * End-stage renal disease on HD per nephrology * Acute hypoglycemia secondary to insulin administration for hyperkalemia. Continue with dextrose as needed. Start diabetic diet * History of hypertension-continue home medications including c lonidine/lisinopril/amlodipine * Hyperlipidemia on statin * History of CAD on aspirin/Plavix statin/beta-melissa/isosorbide * Chronic pain on methocarbamol as needed opioid * BPH continue tamsulosin * Full code * Prophylaxis SCDs/ambulation. High risk bleed in light of dual antiplatelet Plan * Telemetry observation admit * Nephrology consultation * Prior medical condition management home meds * Repeat labs postdialysis
[2019-08-30] MEDS: 0.9 % SODIUM CHLORIDE 10 ML SYRINGE IV SCH ×2 (19:00→20:23)
[2019-08-30] MEDS: INSULIN LISPRO 1 UNIT/0.01 ML UNIT SQ SCH ×2 (19:03→20:08)
[2019-08-30] MEDS: SENNOSIDES/DOCUSATE SODIUM 1 TAB TABLET PO SCH (20:20)
[2019-08-30] MEDS: DOCUSATE SODIUM 100 MG CAPSULE PO SCH (20:20)
[2019-08-30] MEDS: HEPARIN 5,000 UNIT/ML VIAL SQ SCH (20:20)
[2019-08-30] MEDS ORDERED: SEVELAMER 800 MG TABLET PO PRN (20:44)
[2019-08-30] MEDS ORDERED: NITROGLYCERIN 0.4 MG TAB.SUBL SL PRN (21:23)
[2019-08-30 21:35] LABS: Blood Urea Nitrogen 28 mg/dl (6-20); Calcium 8.5 mg/dl (8.6-10.4); Carbon Dioxide 29 mmol/L (22-30); Chloride 94 mmol/L (96-108); Glomerular Filtration Rate 13; Glucose 180 mg/dL (70-105)
[2019-08-30] MEDS ORDERED: CARVEDILOL 12.5 MG TABLET PO ONE (21:45)
[2019-08-30] MEDS: MINOXIDIL 2.5 MG TABLET PO SCH (22:06)
[2019-08-30] MEDS: amLODIPine 10 MG TABLET PO SCH (22:07)
[2019-08-30] MEDS: GABAPENTIN 100 MG CAPSULE PO SCH (22:07)
[2019-08-30] MEDS: risperiDONE 0.25 MG TABLET PO SCH (22:07)
[2019-08-31] MEDS: 0.9 % SODIUM CHLORIDE 10 ML SYRINGE IV SCH ×3 (05:39→20:52)
[2019-08-31 05:57] LABS: Hematocrit 30.2 % (41.0-55.0); Mean Cell Volume 93.2 fL (80.0-100.0); Mean Corpuscular HGB Conc 33.3 g/dL (31.0-36.0); Platelet Count 212 K/mcL (140-440); RBC 3.24 M/mcL (4.50-5.90); Red Cell Distribution Width 19.7 % (11.5-14.5); WBC 6.9 K/mcL (4.5-11.0)
[2019-08-31 07:13] LABS: ALT/SGPT 28 U/l (0-40); AST/SGOT 22 U/l (0-37); Albumin/Globulin Ratio 1.7 (1.0-2.3); Alkaline Phosphatase 130 U/L (39-117); Bilirubin,Direct 0.2 mg/dL (0.0-0.3); Bilirubin,Total 0.6 mg/dL (0.0-1.0); Blood Urea Nitrogen 35 mg/dl (6-20); Calcium 8.3 mg/dl (8.6-10.4); Carbon Dioxide 28 mmol/L (22-30); Chloride 96 mmol/L (96-108); Globulin 2.3 gm/dL (2.2-3.7); Glomerular Filtration Rate 10; Glucose 71 mg/dL (70-105); Lactate Dehydrogenase 292 U/L (94-250); Phosphorous 6.6 mg/dL (2.7-4.5); Triglycerides 51 mg/dl (<150); Uric Acid 3.5 mg/dL (2.5-8.0)
[2019-08-31] MEDS: INSULIN LISPRO 1 UNIT/0.01 ML UNIT SQ SCH ×4 (07:52→21:07)
[2019-08-31] MEDS: ACETAMINOPHEN 325 MG TABLET PO PRN ×2 (08:00→14:04)
[2019-08-31] MEDS: CARVEDILOL 12.5 MG TABLET PO SCH ×2 (08:40→17:34)
[2019-08-31] MEDS: SEVELAMER 800 MG TABLET PO SCH ×3 (08:41→17:34)
[2019-08-31] MEDS: CINACALCET 30 MG TABLET PO SCH (08:41)
[2019-08-31] MEDS ORDERED: MULTIVIT,THER IRON,CA,FA & MIN 1 TABLET PO SCH (09:00)
[2019-08-31 09:43] LABS: Anisocytosis 1+ (NONE SEEN); Band Neutrophils % 4 % (0-10); Eosinophils % (Manual) 2 % (0-7); Lymphocytes % 11 % (15-49); Monocytes % (Manual) 3 % (1-12); Platelet Estimate NORMAL (NORMAL); RBC Morphology ABNORM (NORMAL); Segmented Neutrophils % 80 % (38-78)
[2019-08-31] MEDS: risperiDONE 0.25 MG TABLET PO SCH ×2 (10:36→21:11)
[2019-08-31] MEDS: DILTIAZEM 180 MG CAP.XL.24H PO SCH (10:37)
[2019-08-31] MEDS: ASPIRIN 325 MG ENTERIC COATED TABLET PO SCH (10:38)
[2019-08-31] MEDS: FUROSEMIDE 40 MG TABLET PO SCH (10:38)
[2019-08-31] MEDS: ISOSORBIDE MONONITRATE 60 MG TAB.XL.24H PO SCH (10:39)
[2019-08-31] MEDS: CLOPIDOGREL 75 MG TABLET PO SCH (10:39)
[2019-08-31] MEDS: FOLIC ACID/VITAMIN B COMP W-C 1 TAB TABLET PO SCH (10:39)
[2019-08-31] MEDS: GABAPENTIN 100 MG CAPSULE PO SCH ×2 (10:40→20:50)
[2019-08-31] MEDS: DOCUSATE SODIUM 100 MG CAPSULE PO SCH ×3 (10:40→21:07)
[2019-08-31] MEDS: MINOXIDIL 2.5 MG TABLET PO SCH ×2 (10:41→21:08)
[2019-08-31] MEDS: amLODIPine 10 MG TABLET PO SCH ×3 (10:42→23:55)
[2019-08-31] MEDS: HEPARIN 5,000 UNIT/ML VIAL SQ SCH ×2 (10:42→20:52)
--- NOTE | 2019-08-31 12:38 | Consultation ---
DATE OF CONSULTATION: 08/31/2019 REFERRING PHYSICIAN: Brant Pope M.D. REASON FOR CONSULTATION: Hyperkalemia. HISTORY OF PRESENT ILLNESS: The patient is a 49-year-old gentleman with history of end-stage renal disease secondary to hypertension on hemodialysis. He dialyzes Mondays, Wednesdays and Fridays. He presented to [facility] Emergency Room with abdominal discomfort which has been getting worse. He had initial workup with a CT scan which was unremarkable. His laboratory data suggested that he had hyperkalemia with a potassium of 6.2. Subsequently, he was transferred to [facility] for correction of hyperkalemia as medical therapy did not help with the potassium. PAST MEDICAL HISTORY: 1. End-stage renal disease secondary to hypertension. He dialyzes on Mondays, Wednesdays, and Fridays. 2. Hypertension. 3. Coronary artery disease status post stenting. 4. COPD. 5. Hypercholesterolemia. 6. Diastolic heart failure. 7. Chronic anemia. 8. Schizoaffective disorder. 9. Gastroesophageal reflux disorder. 10. Polysubstance use. PAST SURGICAL HISTORY: History of cholecystectomy and left arm fistula placement. FAMILY HISTORY: Significant for hypertension. SOCIAL HISTORY: The patient lives with his girlfriend. He smokes 10 to 12 cigarettes per day. He chews tobacco and smokes marijuana. CURRENT MEDICATIONS: 1. Aspirin 325 mg once daily. 2. Plavix 75 mg daily. 3. Lasix 80 mg daily. 4. Imdur 60 mg daily. 5. Nitroglycerin p.r.n. 6. Sevelamer 1600 mg p.o. three times daily. 7. Amlodipine 10 mg daily. 8. Sensipar 30 mg daily. 9. Diltiazem 180 mg daily. 10. Folic acid one tablet once daily. 11. Gabapentin 100 mg daily and 200 mg at night. 12. Minoxidil 2.5 mg twice daily. 13. Risperidone 0.5 mg twice daily. 14. Carvedilol 25 mg p.o. b.i.d. PHYSICAL EXAMINATION: GENERAL: Alert. He is not in apparent distress. VITAL SIGNS: Blood pressure is 140 to 160 systolic with diastolic in the 80s to 90s. Pulse rates have been in the 90s. HEENT: NC/AT. PERRLA. EOMI. No pallor, no cyanosis, no icterus. Fundus examination is not performed. External ear canal appears normal. Oral cavity with normal mucosa. NECK: No jugular venous distention. No lymphadenopathy. No thyromegaly. LUNGS: Decreased air entry bilaterally. No rales or rhonchi heard. CARDIAC: S1, S2 heard. No S3, S4. No murmurs. No rubs. ABDOMEN: Soft, nontender. No organomegaly. Positive bowel sounds. No mass. No rebound. EXTREMITIES: Did not show any evidence of edema. LABORATORY DATA: Laboratory data from today showed a white count of 6.9 with hemoglobin 10.0 and a platelet count of 212. Sodium 140, potassium 4.5, chloride of 96, CO2 28, BUN of 34 with a creatinine of 6.2, phosphorus is 6.6. ASSESSMENT AND PLAN: 1. Hyperkalemia which was treated with hemodialysis yesterday. It did not respond to medical therapy for which reason he was transferred from [facility] ER to [facility] to do the dialysis. 2. End-stage renal disease on hemodialysis. He will have his regular dialysis scheduled today. 3. Volume status. He remains hypertensive. We took out 2500 yesterday, and we will try to take about 5 kilos of fluid out today if he can tolerate. 4. Anemia, multifactorial. Thank you Dr. Pope for referring this patient for consultation. I will follow with you. SUHAIL:gerry Job ID: [id number] Doc ID: [id number] Levon Fabian MD
--- NOTE | 2019-08-31 14:46 | Internal Med Progress Note ---
Medical - PN: Subj Patient information: Note initiated : 08/31/19 at 2:43 pm Service Date, if different from initiated Date: [] Patient: Elias Huffman a 49 y/o M admitted on 08/30/19 for Kidney Pain. Chief Complaint: [] Interval history: Mr. Huffman is a 49 year old M with a history of ESRD managed by Dr. Fabian on HD 3 X week/hypertension/CAD/COPD who presents to [place] [facility] with vague symptoms including abdominal pain/back pain and weakness that started 2 days prior to presentation. Patient lives along with girlfriend and has not been feeling well. He denies associated fever, headache, productive sputum or diarrhea. He denies joint pain rash. Initial work-up in the ER was essentially unremarkable with negative abdominal CT however biochemical profile revealed potassium 6.2. Patient underwent hype rkalemia protocol without improvement on potassium recheck. Subsequently nephrology was consulted and advised to transfer patient to [facility] for hemodialysis in light of life-threatening hyperkalemia. Subsequently hospitalist service at [facility] was consulted by [place] [facility]. A verbal phone signout was obtained. Patient was accepted and received to [facility] in stable state. Notably patient during the hyperkalemia protocol was administered insulin leading to hypoglycemia and subsequently 4 ampoules of D50 were administered and also during transit to [facility]. On arrival patient is sedated and drowsy. Initial blood sugars around 110. Patient endorses that he is hungry. He has not missed dialysis in in the recent few days. He endorses to smoking. Denies alcohol. No family members present 08/31-patient status post hemodialysis. Continues to be weak fatigued. Potassium postdialysis down to 3.6. Repeat hemodialysis today. Tolerating diet. Appears fatigued and weak. Denies fever chills. Blood sugars stable. A.m. blood sugar 71. Anticipate discharge in 24 hours if continues to improve clinically. Continue PT OT. - Constitutional Vitals: Vital Signs Temp Pulse Resp BP Pulse Ox 98.0 F 80 16 140/91 95 08/31/19 11:25 08/31/19 14:25 08/31/19 11:25 08/31/19 14:25 08/31/19 11:25 Period Temp Pulse Resp BP Sys/Kaplan Pulse Ox Last 24 Hr 97.4 F-99.2 F 72-103 16-20 123-172/71-117 93-99 Intake and Output 08/31/19 08/31/19 08/31/19 05:59 13:59 21:59 Intake Total 474 660 Output Total 150 Balance 474 510 Intake & Output: Intake & Output 08/31/19 08/31/19 08/31/19 05:59 13:59 21:59 Intake Total 474 660 Output Total 150 Balance 474 510 Intake: Oral 474 660 Output: Void Amount 150 Other: Meal Lunch Percent of Meal Consumed 100% General appearance: no acute distress Exam: Drowsy Nonlabored breathing Minimally anxious No lymphedema No telemetry events Medical - PN: Obj Da - Labs CBC & Chem 7: 08/31/19 04:30 08/31/19 04:30 Labs: Abnormal Lab Results 08/31/19 08/31/19 08/30/19 04:30 04:30 20:34 RBC 3.24 L Hgb 10.0 L Hct 30.2 L RDW 19.7 H Seg Neutrophils % 80 H Lymphocytes % 11 L RBC Morphology Abnorm A Anisocytosis 1+ A Chloride 94 L BUN 35 H 28 H Creatinine 6.2 H* 5.0 H Glucose 180 H Calcium 8.3 L 8.5 L Phosphorus 6.6 H* GGT 245 H Alkaline Phosphatase 130 H Lactate Dehydrogenase 292 H Meds: Medications Acetaminophen (Tylenol) 650 mg PO Q4-6HP PRN; Protocol PRN Reason: Per Pain Protocol/Fever > 101 Last Admin: 08/31/19 14:04 Dose: 650 mg Documented by: Amlodipine Besylate (Norvasc) 10 mg PO BID [facility] Last Admin: 08/31/19 10:42 Dose: 10 mg Documented by: Aspirin (Ecotrin) 325 mg PO DAILY [facility] Last Admin: 08/31/19 10:38 Dose: 325 mg Documented by: Atorvastatin Calcium (Lipitor) 10 mg PO [facility] Last Admin: 08/31/19 08:40 Dose: 25 mg Documented by: [facility]) [facility] Last Admin: 08/31/19 08:41 Dose: 30 mg Documented by: Clonidine HCl (Catapres Tts 1) 1 patch TD Sa@1000 [facility] Clopidogrel Bisulfate (Plavix) 75 mg PO DAILY [facility] Last Admin: 08/31/19 10:39 Dose: 75 mg Documented by: Dextrose (Dextrose 50%) 0 ml IV UD PRN PRN Reason: Hypoglycemia Diagnostic Test (Pha) (Accu-Chek) 1 each FS ACHS [facility] Last Admin: 08/31/19 11:45 Dose: 1 each Documented by: Diltiazem HCl (Cardizem Cd) 180 mg PO DAILY [facility] Last Admin: 08/31/19 10:37 Dose: 180 mg Documented by: Docusate Sodium (Colace) 100 mg PO BID [facility] Last Admin: 08/31/19 10:48 Dose: Not Given Documented by: Furosemide (Lasix) 80 mg PO DAILY [facility] Last Admin: 08/31/19 10:38 Dose: 80 mg Documented by: Gabapentin (Neurontin) 100 mg PO DAILY [facility] Last Admin: 08/31/19 10:40 Dose: 100 mg Documented by: Gabapentin (Neurontin) 200 mg PO HS [facility] Last Admin: 08/30/19 22:07 Dose: 200 mg Documented by: Glucose (Insta-Glucose) 15 gm PO PRN PRN PRN Reason: Hypoglycemia Heparin Sodium (Porcine) (Heparin) 5,000 unit SQ Q12 [facility] Last Admin: 08/31/19 10:42 Dose: 5,000 unit Documented by: Acetaminophen (Ofirmev) 650 mg in 65 mls @ 130 mls/hr IV Q6HP PRN; Protocol PRN Reason: Per Pain Protocol/Fever > 101 Insulin Human Lispro (Humalog) 0 unit SQ [facility]; Protocol Last Admin: 08/31/19 12:02 Dose: Not Given Documented by: Isosorbide Mononitrate (Imdur) 60 mg PO DAILY [facility] Last Admin: 08/31/19 10:39 Dose: 60 mg Documented by: Minoxidil (Minoxidil) 2.5 mg PO BID [facility] Last Admin: 08/31/19 10:41 Dose: 2.5 mg Documented by: Multivit/Ca Carb/B Cmplx/FA/Prenat (Diatx) 1 tab PO DAILY [facility] Last Admin: 08/31/19 10:39 Dose: 1 tab Documented by: Nitroglycerin (Nitrostat) 0.4 mg SL Q5M PRN PRN Reason: Chest Pain Ondansetron HCl (Zofran) 4 mg IV Q4-6HP PRN; Protocol PRN Reason: Nausea And Vomiting Risperidone (Risperdal) 0.5 mg PO BID [facility] Last Admin: 08/31/19 10:36 Dose: 0.5 mg Documented by: Senna/Docusate Sodium (Senna Plus Tablet) 1 tab PO HS [facility] Last Admin: 08/30/19 20:20 Dose: Not Given Documented by: Sevelamer Carbonate (Renvela) 1,600 mg PO PRN PRN PRN Reason: SNACKS Sevelamer Carbonate (Renvela) 2,400 mg PO TIDCC [facility] Last Admin: 08/31/19 12:20 Dose: 2,400 mg Documented by: Sodium Chloride (Saline Flush) 10 ml IV Q8 [facility] Last Admin: 08/31/19 14:05 Dose: 10 ml Documented by: Medical - PN: A/P - Time Spent With Patient Total time spent is greater than 50% in coordination of care (as documented) at patient's floor/unit and/or counseling patient: 25 - 35 minutes (1) Acute hyperkalemia Status: Acute Assessment and plan: * Acute hyperkalemia-resolved status post emergent hemodialysis. * End-stage renal disease-ongoing HD per nephrology * Acute hypoglycemia secondary to insulin administration for hyperkalemia. Resolved * Weakness and deconditioning continue PT OT * History of hypertension-stable on clonidine/lisinopril/amlodipine * Hyperlipidemia on statin * History of CAD on aspirin/Plavix statin/beta-melissa/isosorbide * Chronic pain on methocarbamol as needed opioid * BPH continue tamsulosin * Full code * Prophylaxis SCDs/ambulation. High risk bleed in light of dual antiplatelet Plan * Possible discharge in 24 hours * Continue HD per nephrology * Prior medical condition management home meds * PT OT/nutrition support * Discharge planning Current Visit: Yes Medical - PN: Qual - Stroke Symptom Onset Unknown: No - VTE Deep Vein Thrombosis/Pulmonary Embolism Present on Admission: No
[2019-08-31] MEDS ORDERED: ATORVASTATIN 20 MG TABLET PO SCH (21:00)
[2019-08-31] MEDS: SENNOSIDES/DOCUSATE SODIUM 1 TAB TABLET PO SCH (21:08)
[2019-09-01 02:24] LABS: Hematocrit 29.4 % (41.0-55.0); Hemoglobin 9.7 g/dL (13.5-16.5); Mean Cell Volume 93.2 fL (80.0-100.0); Mean Platelet Volume 7.9 fL (7.4-10.4); Platelet Count 232 K/mcL (140-440); RBC 3.15 M/mcL (4.50-5.90); Red Cell Distribution Width 19.7 % (11.5-14.5); WBC 6.6 K/mcL (4.5-11.0)
[2019-09-01 02:39] LABS: ALT/SGPT 22 U/l (0-40); AST/SGOT 16 U/l (0-37); Albumin 3.6 gm/dL (3.2-5.2); Albumin/Globulin Ratio 1.5 (1.0-2.3); Alkaline Phosphatase 121 U/L (39-117); Bilirubin,Direct < 0.2 mg/dL (0.0-0.3); Bilirubin,Total 0.5 mg/dL (0.0-1.0); Blood Urea Nitrogen 27 mg/dl (6-20); Calcium 8.4 mg/dl (8.6-10.4); Carbon Dioxide 27 mmol/L (22-30); Chloride 97 mmol/L (96-108); Globulin 2.4 gm/dL (2.2-3.7); Glomerular Filtration Rate 14; Glucose 109 mg/dL (70-105); Lactate Dehydrogenase 219 U/L (94-250); Phosphorous 4.2 mg/dL (2.7-4.5); Triglycerides 54 mg/dl (<150); Uric Acid 2.8 mg/dL (2.5-8.0)
[2019-09-01 04:49] LABS: Anisocytosis 1+ (NONE SEEN); Eosinophils % (Manual) 2 % (0-7); Lymphocytes % 10 % (15-49); Monocytes % (Manual) 10 % (1-12); Platelet Estimate NORMAL (NORMAL); Polychromasia 1+ (NONE SEEN); RBC Morphology ABNORMAL (NORMAL); Segmented Neutrophils % 78 % (38-78)
[2019-09-01] MEDS: 0.9 % SODIUM CHLORIDE 10 ML SYRINGE IV SCH (05:38)
[2019-09-01] MEDS: INSULIN LISPRO 1 UNIT/0.01 ML UNIT SQ SCH ×2 (08:02→12:16)
[2019-09-01] MEDS: SEVELAMER 800 MG TABLET PO SCH ×2 (08:35→12:17)
[2019-09-01] MEDS: CARVEDILOL 12.5 MG TABLET PO SCH (08:35)
[2019-09-01] MEDS: CINACALCET 30 MG TABLET PO SCH (08:35)
--- NOTE | 2019-09-01 09:30 | Nephrology Progress Note ---
Subjective Patient information: Note initiated : 09/01/19 at 9:28 am Service Date, if different from initiated Date: [] Patient: Elias Huffman 49 y/o M admitted on 08/30/19 for Kidney Pain. Chief Complaint: [] Had an episode of v tach which resolved. He is feeling better. No more abdominal pain. Objective - Vital Signs Vital signs: Vital Signs Temp Pulse Pulse Resp BP BP Pulse Ox 09/01/19 08:00 98 09/01/19 07:30 98.8 F 88 16 142/92 98 09/01/19 04:00 98.6 F 16 145/90 98 09/01/19 01:13 86 16 128/72 96 08/31/19 23:35 99 H 159/97 97 08/31/19 23:25 97.5 F 85 12 134/96 96 08/31/19 22:00 135/76 08/31/19 21:02 117/66 08/31/19 19:49 98.0 F 79 18 124/68 96 08/31/19 16:00 84 16 127/72 98 08/31/19 15:10 98.2 F 80 123/85 08/31/19 14:55 80 136/88 08/31/19 14:25 80 140/91 08/31/19 13:55 80 132/93 08/31/19 13:25 80 161/105 08/31/19 12:56 80 150/98 08/31/19 12:24 82 151/100 08/31/19 11:55 80 153/101 08/31/19 11:25 98.0 F 82 16 123/88 123/88 95 Intake and Output 08/31/19 09/01/19 09/01/19 21:59 05:59 13:59 Intake Total 480 120 240 Output Total 4527 Balance -4047 120 240 Intake: Oral 480 120 240 Output: Hemodialysis UF 4527 Other: Meal Dinner Percent of Meal Consumed 100% Feeding Ability Independent Weight 171 lb Intake & Output: Intake & Output 08/31/19 09/01/19 09/01/19 21:59 05:59 13:59 Intake Total 480 120 240 Output Total 4527 Balance -4047 120 240 Weight 171 lb Intake: Oral 480 120 240 Output: Hemodialysis UF 4527 Other: Meal Dinner Percent of Meal Consumed 100% Feeding Ability Independent - General Appearance General appearance: well-developed, well-nourished EENT: ATNC Neck: no JVD Respiratory: no kyphosis Cardiology: diastolic murmur Gastrointestinal: normoactive bowel sounds Integumentary: no rash Neurologic: no focal deficit - Lab 09/01/19 01:00 09/01/19 01:00 Most recent lab results Calcium 8.4 mg/dl (8.6-10.4) L 09/01/19 01:00 Phosphorus 4.2 mg/dL (2.7-4.5) 09/01/19 01:00 Magnesium 1.9 mg/dL (1.6-2.5) 09/01/19 01:00 Assessment and Plan (1) ESRD (end stage renal disease) on dialysis Status: Chronic Comment: Had HD Saturday and Saturday. Hyperkalemia. Resolved. Volume. Better. Had cramps with dialysis yesterday.
[2019-09-01] MEDS: ISOSORBIDE MONONITRATE 60 MG TAB.XL.24H PO SCH (09:54)
[2019-09-01] MEDS: FOLIC ACID/VITAMIN B COMP W-C 1 TAB TABLET PO SCH (09:54)
[2019-09-01] MEDS: risperiDONE 0.25 MG TABLET PO SCH (09:54)
[2019-09-01] MEDS: CLOPIDOGREL 75 MG TABLET PO SCH (09:55)
[2019-09-01] MEDS: DILTIAZEM 180 MG CAP.XL.24H PO SCH (09:55)
[2019-09-01] MEDS: GABAPENTIN 100 MG CAPSULE PO SCH (09:55)
[2019-09-01] MEDS: HEPARIN 5,000 UNIT/ML VIAL SQ SCH (09:55)
[2019-09-01] MEDS: MINOXIDIL 2.5 MG TABLET PO SCH (09:55)
[2019-09-01] MEDS: amLODIPine 10 MG TABLET PO SCH (09:55)
[2019-09-01] MEDS: ASPIRIN 325 MG ENTERIC COATED TABLET PO SCH (09:55)
[2019-09-01] MEDS: DOCUSATE SODIUM 100 MG CAPSULE PO SCH (09:56)
[2019-09-01] MEDS: FUROSEMIDE 40 MG TABLET PO SCH (09:56)
--- NOTE | 2019-09-01 13:26 | Internal Med Progress Note ---
Medical - PN: Subj Patient information: Note initiated : 09/01/19 at 1:22 pm Service Date, if different from initiated Date: [] Patient: Elias Huffman 49 y/o M admitted on 08/30/19 for Kidney Pain. Chief Complaint: [] - Constitutional Vitals: Vital Signs Temp Pulse Resp BP Pulse Ox 99 F 88 18 137/82 98 09/01/19 11:23 09/01/19 07:30 09/01/19 11:23 09/01/19 11:23 09/01/19 11:23 Period Temp Pulse Resp BP Sys/Kaplan Pulse Ox Last 24 Hr 97.5 F-99 F 79-99 12-18 117-161/66-105 96-98 Intake and Output 08/31/19 09/01/19 09/01/19 21:59 05:59 13:59 Intake Total 480 120 900 Output Total 4527 Balance -4047 120 900 Weight 171 lb Intake & Output: Intake & Output 08/31/19 09/01/19 09/01/19 21:59 05:59 13:59 Intake Total 480 120 900 Output Total 4527 Balance -4047 120 900 Weight 171 lb Intake: Oral 480 120 900 Output: Hemodialysis UF 4527 Other: Meal Dinner Lunch Percent of Meal Consumed 100% 100% Feeding Ability Independent Independent General appearance: no acute distress Medical - PN: Obj Da - Labs CBC & Chem 7: 09/01/19 01:00 09/01/19 01:00 Labs: Abnormal Lab Results 09/01/19 09/01/19 08/31/19 01:00 01:00 04:30 RBC 3.15 L Hgb 9.7 L Hct 29.4 L RDW 19.7 H Seg Neutrophils % Lymphocytes % 10 L RBC Morphology Polychromasia 1+ A Anisocytosis 1+ A Chloride BUN 27 H 35 H Creatinine 4.7 H 6.2 H* Glucose 109 H Calcium 8.4 L 8.3 L Phosphorus 6.6 H* GGT 237 H 245 H Alkaline Phosphatase 121 H 130 H Lactate Dehydrogenase 292 H 08/31/19 08/30/19 04:30 20:34 RBC 3.24 L Hgb 10.0 L Hct 30.2 L RDW 19.7 H Seg Neutrophils % 80 H Lymphocytes % 11 L RBC Morphology Abnorm A Polychromasia Anisocytosis 1+ A Chloride 94 L BUN 28 H Creatinine 5.0 H Glucose 180 H Calcium 8.5 L Phosphorus GGT Alkaline Phosphatase Lactate Dehydrogenase Meds: Medications Acetaminophen (Tylenol) 650 mg PO Q4-6HP PRN; Protocol PRN Reason: Per Pain Protocol/Fever > 101 Last Admin: 08/31/19 14:04 Dose: 650 mg Documented by: Amlodipine Besylate (Norvasc) 10 mg PO BID [facility] Last Admin: 09/01/19 09:55 Dose: 10 mg Documented by: Aspirin (Ecotrin) 325 mg PO DAILY [facility] Last Admin: 09/01/19 09:55 Dose: 325 mg Documented by: Atorvastatin Calcium (Lipitor) 10 mg PO HS [facility] Last Admin: 08/31/19 20:50 Dose: 10 mg Documented by: [facility] Last Admin: 09/01/19 08:35 Dose: 25 mg Documented by: Cinacalcet (Sensipar) 30 mg [facility] Last Admin: 09/01/19 08:35 Dose: 30 mg Documented by: Clonidine HCl (Catapres Tts 1) 1 patch TD Sa@1000 [facility] Clopidogrel Bisulfate (Plavix) 75 mg PO DAILY [facility] Last Admin: 09/01/19 09:55 Dose: 75 mg Documented by: Dextrose (Dextrose 50%) 0 ml IV UD PRN PRN Reason: Hypoglycemia Diagnostic Test (Pha) (Accu-Chek) 1 each FS ACHS [facility] Last Admin: 09/01/19 12:15 Dose: 1 each Documented by: Diltiazem HCl (Cardizem Cd) 180 mg PO DAILY [facility] Last Admin: 09/01/19 09:55 Dose: 180 mg Documented by: Docusate Sodium (Colace) 100 mg PO BID [facility] Last Admin: 09/01/19 09:56 Dose: 100 mg Documented by: Furosemide (Lasix) 80 mg PO DAILY [facility] Last Admin: 09/01/19 09:56 Dose: 80 mg Documented by: Gabapentin (Neurontin) 100 mg PO DAILY [facility] Last Admin: 09/01/19 09:55 Dose: 100 mg Documented by: Gabapentin (Neurontin) 200 mg PO HS [facility] Last Admin: 08/31/19 20:50 Dose: 200 mg Documented by: Glucose (Insta-Glucose) 15 gm PO PRN PRN PRN Reason: Hypoglycemia Heparin Sodium (Porcine) (Heparin) 5,000 unit SQ Q12 [facility] Last Admin: 09/01/19 09:55 Dose: 5,000 unit Documented by: Acetaminophen (Ofirmev) 650 mg in 65 mls @ 130 mls/hr IV Q6HP PRN; Protocol PRN Reason: Per Pain Protocol/Fever > 101 Insulin Human Lispro (Humalog) 0 unit SQ ACHS [facility]; Protocol Last Admin: 09/01/19 12:16 Dose: Not Given Documented by: Isosorbide Mononitrate (Imdur) 60 mg PO DAILY [facility] Last Admin: 09/01/19 09:54 Dose: 60 mg Documented by: Minoxidil (Minoxidil) 2.5 mg PO BID [facility] Last Admin: 09/01/19 09:55 Dose: 2.5 mg Documented by: Multivit/Ca Carb/B Cmplx/FA/Prenat (Diatx) 1 tab PO DAILY [facility] Last Admin: 09/01/19 09:54 Dose: 1 tab Documented by: Nitroglycerin (Nitrostat) 0.4 mg SL Q5M PRN PRN Reason: Chest Pain Ondansetron HCl (Zofran) 4 mg IV Q4-6HP PRN; Protocol PRN Reason: Nausea And Vomiting Risperidone (Risperdal) 0.5 mg PO BID [facility] Last Admin: 09/01/19 09:54 Dose: 0.5 mg Documented by: Senna/Docusate Sodium (Senna Plus Tablet) 1 tab PO HS [facility] Last Admin: 08/31/19 21:08 Dose: Not Given Documented by: Sevelamer Carbonate (Renvela) 1,600 mg PO PRN PRN PRN Reason: SNACKS Sevelamer Carbonate (Renvela) 2,400 mg PO TIDCC [facility] Last Admin: 09/01/19 12:17 Dose: 2,400 mg Documented by: Sodium Chloride (Saline Flush) 10 ml IV Q8 [facility] Last Admin: 09/01/19 05:38 Dose: 10 ml Documented by: Medical - PN: A/P - Time Spent With Patient Total time spent is greater than 50% in coordination of care (as documented) at patient's floor/unit and/or counseling patient: 25 - 35 minutes (1) Acute hyperkalemia Status: Acute Current Visit: Yes Medical - PN: Qual - Stroke Symptom Onset Unknown: No - VTE Deep Vein Thrombosis/Pulmonary Embolism Present on Admission: No
--- NOTE | 2019-09-01 13:36 | Discharge Summary ---
Medical - DS: Prov Patient information: Note initiated : 09/01/19 at 1:34 pm Service Date, if different from initiated Date: [] Patient: Elias Huffman 49 y/o M admitted on 08/30/19 for Kidney Pain. Chief Complaint: [] Date of admission: 08/30/19 13:33 Discharge date: 09/01/19 Consults: 08/30/19 13:54 Consult to Physician [CONS] Routine Comment: Consulting Provider: Levon Fabian Reason For Exam: Physician to Consult Medical - DS: Meds - Discharge Medications Active and Home Medications: Home Medications Aspirin [[place] Aspirin] 325 mg PO DAILY 11/09/17 [History Confirmed 1 Last Taken 08/30/19 04:00] Clopidogrel Bisulfate [Plavix] 75 mg PO DAILY 11/09/17 [History Confirmed 08/30/19 Last Taken 08/30/19 04:00] Furosemide [Lasix] 80 mg PO DAILY 11/09/17 [History Confirmed 08/30/19 Last Taken 08/30/19 04:00] Isosorbide Mononitrate [Imdur] 60 mg PO DAILY 11/09/17 [History Confirmed 08/30/19 Last Taken 08/30/19 04:00] Nitroglycerin 0.4 mg SL Q5M PRN 11/09/17 [History Confirmed 08/30/19 Last Taken 09/11/17 06:00] Sevelamer [Renvela] 1,600 mg PO PRN PRN 11/09/17 [History Confirmed 08/30/19 Last Taken 08/29/19] amLODIPine [Norvasc] 10 mg PO BID 11/09/17 [History Confirmed 08/30/19 Last Taken 08/30/19 04:00] Cinacalcet [Sensipar] 30 mg PO QAC 07/08/19 [History Confirmed 08/30/19 Last Taken 08/30/19 04:00] Diltiazem [Cardizem Cd] 180 mg PO DAILY 07/08/19 [History Confirmed 08/30/19 Last Taken 08/30/19 04:00] Folic Acid/Vit Bcomp,C [Dialyvite Tablet] 1 tab PO DAILY 07/08/19 [History Confirmed 08/30/19 Last Taken 08/30/19 04:00] Gabapentin [Neurontin] 100 mg PO DAILY 07/08/19 [History Confirmed 08/30/19 Last Taken 08/30/19 04:00] Gabapentin [Neurontin] 200 mg PO HS 07/08/19 [History Confirmed 08/30/19 Last Taken 08/29/19 19:00] Minoxidil 2.5 mg PO BID 07/08/19 [History Confirmed 08/30/19 Last Taken 08/30/19 04:00] Sevelamer [Renvela] 2,400 mg PO TIDCC 07/08/19 [History Confirmed 08/30/19 Last Taken 08/29/19 19:00] risperiDONE [Risperdal] 0.5 mg PO BID 07/08/19 [History Confirmed 08/30/19 Last Taken 08/30/19 04:00] Carvedilol [Coreg] 25 mg PO BIDCC #0 tab 07/09/19 [Rx Confirmed 08/30/19 Last Taken 08/30/19 04:00] Albuterol Sulfate [Ventolin] 2 puff INH Q2HP PRN 08/30/19 [History Confirmed 08/30/19 Last Taken Unknown] Atorvastatin Calcium 10 mg PO QHS 08/30/19 [History Confirmed 08/30/19 Last Taken 08/29/19 19:00] cloNIDine 1 mg TOPICAL WEEKLY 08/30/19 [History Confirmed 08/30/19 Last Taken 08/29/19 08:00] Medical - DS: Hosp Hospital Course: Discharge diagnosis * Acute hyperkalemia-resolved status post emergent hemodialysis. Potassium down to 4.1 * End-stage renal disease-ongoing HD per nephrology discharging advised to follow-up with nephrology for continued outpatient hemodialysis * Acute hypoglycemia secondary to insulin administration for hyperkalemia. Resolved * Weakness and deconditioning continue PT OT * History of hypertension-stable on clonidine/lisinopril/amlodipine. Discharging on recommendation as per nephrology * Hyperlipidemia on statin * History of CAD on aspirin/Plavix statin/beta-melissa/isosorbide * Chronic pain on methocarbamol as needed opioid * BPH continue tamsulosin Brief hospital course Mr. Huffman is a 49 year old M with a history of ESRD managed by Dr. Fabian on HD 3 X week/hypertension/CAD/COPD who presents to [facility] with vague symptoms including abdominal pain/back pain and weakness that started 2 days prior to presentation. Patient lives along with girlfriend and has not been feeling well. He denies associated fever, headache, productive sputum or diarrhea. He denies joint pain rash. Initial work-up in the ER was essentially unremarkable with negative abdominal CT however biochemical profile revealed potassium 6.2. Patient underwent hy perkalemia protocol without improvement on potassium recheck. Subsequently nephrology was consulted and advised to transfer patient to [facility] for hemodialysis in light of life-threatening hyperkalemia. Subsequently hospitalist service at [facility] was consulted by [facility]. A verbal phone signout was obtained. Patient was accepted and received to [facility] in stable state. Notably patient during the hyperkalemia protocol was administered insulin leading to hypoglycemia and subsequently 4 ampoules of D50 were administered and also during transit to [facility]. On arrival patient is sedated and drowsy. Initial blood sugars around 110. Patient endorses that he is hungry. He has not missed dialysis in in the recent few days. He endorses to smoking. Denies alcohol. No family members present 08/31-patient status post hemodialysis. Continues to be weak fatigued. Potassium postdialysis down to 3.6. Repeat hemodialysis today. Tolerating diet. Appears fatigued and weak. Denies fever chills. Blood sugars stable. A.m. blood sugar 71. Anticipate discharge in 24 hours if continues to improve clinically. Continue PT OT. 09/01-patient doing well. Nephrology recommends discharge with outpatient follow-up for continued hemodialysis. No overnight fever chills. Doing a lot better. Tolerating therapy. No concerns expressed with nursing staff. Disch arge instructions as below Discharge diagnosis: . - Time Spent with Patient Total time spent providing and/or coordinating discharge services: Greater than 30 minutes Medical - DS: Exam - Constitutional Vitals: Vital Signs Temp Pulse Pulse Resp BP BP Pulse Ox 09/01/19 11:23 99 F 18 137/82 98 09/01/19 08:00 98 09/01/19 07:30 98.8 F 88 16 142/92 98 09/01/19 04:00 98.6 F 16 145/90 98 09/01/19 01:13 86 16 128/72 96 08/31/19 23:35 99 H 159/97 97 08/31/19 23:25 97.5 F 85 12 134/96 96 08/31/19 22:00 135/76 08/31/19 21:02 117/66 08/31/19 19:49 98.0 F 79 18 124/68 96 08/31/19 16:00 84 16 127/72 98 08/31/19 15:10 98.2 F 80 123/85 08/31/19 14:55 80 136/88 08/31/19 14:25 80 140/91 08/31/19 13:55 80 132/93 Intake and Output 08/31/19 09/01/19 09/01/19 21:59 05:59 13:59 Intake Total 480 120 900 Output Total 4527 Balance -4047 120 900 Intake: Oral 480 120 900 Output: Hemodialysis UF 4527 Other: Meal Dinner Lunch Percent of Meal Consumed 100% 100% Feeding Ability Independent Independent Weight 171 lb Medical - DS: Data Labs on day of discharge: Labs from last 24 hours 09/01/19 09/01/19 01:00 01:00 WBC 6.6 RBC 3.15 L Hgb 9.7 L Hct 29.4 L MCV 93.2 MCH 30.7 MCHC 33.0 RDW 19.7 H Plt Count 232 MPV 7.9 Total Counted 100 Seg Neutrophils % 78 Band Neutrophils % Not Reportable Lymphocytes % 10 L Monocytes % (Manual) 10 Eosinophils % (Manual) 2 Platelet Estimate Normal RBC Morphology Abnormal Polychromasia 1+ A Anisocytosis 1+ A Sodium 138 Potassium 4.1 Chloride 97 Carbon Dioxide 27 Anion Gap 14.0 BUN 27 H Creatinine 4.7 H GFR Calculation 14 Glucose 109 H Uric Acid 2.8 Calcium 8.4 L Phosphorus 4.2 Magnesium 1.9 Total Bilirubin 0.5 Direct Bilirubin < 0.2 GGT 237 H AST 16 ALT 22 Alkaline Phosphatase 121 H Lactate Dehydrogenase 219 Total Protein 6.0 Albumin 3.6 Globulin 2.4 Albumin/Globulin Ratio 1.5 Triglycerides 54 Medical - DS: A/P - Patient/Caregiver Discharge Instructions Activity: increase activity as tolerated Diet: Renal Additional Instructions: Follow-up nephrology/scheduled hemodialysis as outpatient Return to ER if worsening mental status change weakness falls F/u PCP and nephrology as advised` - Problem Maintenance (1) Acute hyperkalemia Status: Acute - Follow up Plan Follow up with: Keyonna Simmons [Referring] - 09/03/19 1:00 pm (Please call today to update your information with Benita ) Levon Fabian MD [Physician] - (Continue with your current dialysis schedule.) Disposition: Home, Self-Care Care Plan Goals: This discharge packet is provided to you to help keep you informed about your care. We want to ensure you get everything you need when you go home. You will also be receiving a call from us in a few days to follow up with you and see how you are doing since your discharge. This gives us a chance to listen to any concerns you maybe experiencing since you were discharged or any additional needs you may have, as well as providing us feedback on your care experience. We strive to always provide excellent care and thank you for your feedback and for choosing [facility]. Prognosis: Fair Rehab Potential: Fair I certify that the patient requires SNF services: No Overall status at discharge: patient is progressing back to baseline Medical - DS: Qual - VTE Deep Vein Thrombosis/Pulmonary Embolism Present on Admission: No
[2019-09-05] MEDS ORDERED: cloNIDine TTS 1 1 PATCH PATCH TD SCH (10:00)
== END 2019-09-01 14:23 | disposition home or self-care (01) ==
LOC: ICU
PROVIDERS: ADMIT Internal Medicine; ATTEND Internal Medicine

== ENCOUNTER 2020-03-11 07:12 | Inpatient (IN) ==
--- NOTE | 2020-03-11 09:12 | Internal Med History&Physical ---
Medical - H&P: [facility] Patient information: Note initiated : 03/11/20 at 9:06 am Service Date, if different from initiated Date: [] Patient: Elias Huffman a 50 y/o M admitted on 03/11/20 for Hyperkalemia. Chief Complaint: [] History of present illness: Mr. Huffman is a 50 year old M Who was diagnosed with bilateral epididymitis in the past couple days. Like he was in a [facility] ED on the and given doxycycline and went to [facility] on and received Bactrim. When his stage of this morning because of cont inued pain and they found him to have a wide complex tachycardia felt it was dialysis related. He denies chest pain or shortness of breath. He was treated for hyperkalemia although is only 5.3. Troponin was similar to his consistent elevations in the past. his rhythm converted to a bigeminy no ST changes. The EKGs were reviewed with cardiology who felt there was no acute Cardiologic emergency that necessitated cardiology intervention and that this was related to his electrolytes and dialysis and patient needed dialysis. Case was discussed with Dr. Fabian who accepted the patient and will perform dialysis this morning. Opponent was similar to elevation of the past abdominal CT pelvis without contrast which was unremarkable for any acute pathology. He had an ultrasound done yesterday of the testes which revealed what appeared to be bilateral epididymitis. He complains of bilateral groin gnawing pain. Denies fever chills. Review of Systems: denies headache/fever/chills/nausea/vomiting/chest or abdominal pain/cough/dyspnea/diarrhea. Otherwise see above. Medical - H&P: H Medical history: Past medical history: COPD Substance abuse Hypertension End-stage renal disease Chronic anemia History of CAD with stent Tobacco abuse schizoaffective disorder Surgical history: Cholecystectomy and left arm fistula Family: Mother had diabetes Father chronic kidney disease Social history: Patient smokes 5 cigarettes/day 10 Denies alcohol use Use marijuana but denies drug use Lives with girlfriend Medical - H&P: Meds Home Medications Medication Instructions Recorded Confirmed Type Aspirin [[place] Aspirin] 325 mg PO DAILY 11/09/17 10/30/19 History Clopidogrel Bisulfate [Plavix] 75 mg PO DAILY 11/09/17 10/30/19 History Furosemide [Lasix] 80 mg PO DAILY 11/09/17 10/30/19 History Isosorbide Mononitrate [Imdur] 60 mg PO DAILY 11/09/17 10/30/19 History Nitroglycerin 0.4 mg SL Q5M PRN 11/09/17 10/30/19 History Sevelamer [Renvela] 1,600 mg PO PRN PRN 11/09/17 10/30/19 History amLODIPine [Norvasc] 10 mg PO BID 11/09/17 10/30/19 History Cinacalcet [Sensipar] 30 mg PO QAMCC 07/08/19 10/30/19 History Diltiazem [Cardizem Cd] 180 mg PO DAILY 07/08/19 10/30/19 History Folic Acid/Vit B Complex and C 1 tab PO DAILY 07/08/19 10/30/19 History [Dialyvite Tablet] Minoxidil 2.5 mg PO BID 07/08/19 10/30/19 History Sevelamer [Renvela] 2,400 mg PO TIDCC 07/08/19 10/30/19 History risperiDONE [Risperdal] 0.5 mg PO BID 07/08/19 10/30/19 History Carvedilol [Coreg] 25 mg PO BIDCC #0 tab 07/09/19 10/30/19 Rx Albuterol Sulfate [Ventolin] 2 puff INH Q2HP PRN 08/30/19 10/30/19 History Atorvastatin Calcium 10 mg PO QHS 08/30/19 10/30/19 History cloNIDine 1 mg TOPICAL WEEKLY 08/30/19 10/30/19 History HYDROmorphone [Dilaudid] 4 mg PO Q4-6HP PRN #14 tab 10/30/19 Rx Doxycycline Hyclate [Vibramycin] 100 mg PO BID #20 cap 03/09/20 Rx HYDROmorphone HCL [Dilaudid] 4 mg PO Q4 #10 tab 03/09/20 Rx Allergies Allergy/AdvReac Type Severity Reaction Status Date / Time No Known Drug Allergies Allergy Verified 10/30/19 06:18 Medical - H&P: Exam - Constitutional Vitals: Temp Resp BP Pulse Ox 96.9 F L 20 184/131 98 03/11/20 08:58 03/11/20 08:58 03/11/20 08:58 03/11/20 08:58 Exam: General: Alert, Awake, No acute Distress Eyes/N/T: EOMI, PERRL, dry MM Head/Neck: neck supple, normocephalic atraumatic CV: mildly tachy but regular, No murmurs, normal s1/s2 Pulm: Clear b/l, no wheezing/rhonchi/rales Abd: soft, tender b/l groin/lower abd, +BS x4 Ext: no clubbing/cyanosis/edema Neuro: Alert, no focal deficits, moves all extremities, CN 2-12 grossly intact, symmetrical strength b/l upper/lower, sensations intact b/l upper/lower Skin: warm/dry : TTP b/l testes more on right and (+) cremasteric reflex. right testicle high riding but axis longitudinal Medical - H&P: A/P - Narrative A/P Narrative: Assessment: *Arrhythmia: wide complex tachy initially -Case discussed with cardiology who reviewed ekg and labs with ED physician and felt dialysis related, no cardiac intervention needed. - *Hyperkalemia, mild: *ESRD: follows with [facility] *Anemia, chronic: *Transaminitis: h/o same at [facility] november *Epididymitis/groin-lower abd pain: -CT a/p unremarkable *CAD w/stents: *HTN: *Tobacco abuse: *Schizoaffective disorder: *COPD: Plan: -HD/electrolytes/BP per Dr. Fabian -Follow-up EKG -Abx -scrotal u/s, UA -cont home antiplatelets/statin/imdur -cont home coreg/norvasc/clonidine/minoxidil/lasix - -Smoking cessation counseling -ppx: Heparin full code
[2020-03-11] MEDS ORDERED: ONDANSETRON 4 MG/2 ML VIAL IV PRN (09:38)
[2020-03-11] MEDS ORDERED: ACETAMINOPHEN 325 MG TABLET PO PRN (09:38)
[2020-03-11] MEDS ORDERED: SENNOSIDES 1 TABLET PO PRN (09:38)
[2020-03-11] MEDS ORDERED: POLYETHYLENE GLYCOL 3350 17 GM PACKET PO PRN (09:38)
[2020-03-11] MEDS ORDERED: cefTRIAXone 1 GM in DEXTROSE 5% IN WATER 50 ML IV ONE (09:40)
[2020-03-11] MEDS ORDERED: cefTRIAXone 1 GM VIAL IV ONE ×2 (10:00→15:00)
--- NOTE | 2020-03-11 10:51 | Ultrasound Report ---
CLINICAL INFORMATION: testicular pain COMPARISON: None. FINDINGS: Both testes are normal and symmetric in size, vision, configuration and echotexture: The right is 4 x 3 cm left is 4 x 3 cm. There is increased arterial blood flow in the right testicle compared to the left side. There are no intratesticular masses. A 2 mm testicular appendage is appreciated. The right epididymis 1.5 x 0.9 cm mildly hypoechoic. The left epididymis is 1 x 0.9 centimeter with normal echotexture Moderate right hydrocele noted IMPRESSION: Mild right orchitis and epididymitis. Moderate right hydrocele. Probable right inguinal hernia in the proximal inguinal canal. Consider: Pelvic CT for more definitive evaluation Interpreted and Authenticated by: Elias Rose 03/11/20
[2020-03-11 11:43] LABS: ALT/SGPT 310 U/l (0-40); AST/SGOT 287 U/l (0-37); Albumin 4.1 gm/dL (3.2-5.2); Albumin/Globulin Ratio 1.6 (1.0-2.3); Alkaline Phosphatase 120 U/L (39-117); Bilirubin,Direct 0.4 mg/dL (0.0-0.3); Bilirubin,Total 0.8 mg/dL (0.0-1.0); Blood Urea Nitrogen 87 mg/dl (6-20); Calcium 9.5 mg/dl (8.6-10.4); Carbon Dioxide 22 mmol/L (22-30); Globulin 2.6 gm/dL (2.2-3.7); Glucose 92 mg/dL (70-105); Triglycerides 54 mg/dl (<150); Uric Acid 8.3 mg/dL (2.5-8.0)
[2020-03-11 11:52] LABS: Chloride 87 mmol/L (96-108); Glomerular Filtration Rate 5; Lactate Dehydrogenase 538 U/L (94-250); Phosphorous 8.9 mg/dL (2.7-4.5)
[2020-03-11] MEDS: 0.9 % SODIUM CHLORIDE 10 ML SYRINGE IV SCH ×2 (12:33→20:00)
[2020-03-11] MEDS ORDERED: ALBUTEROL SULFATE 200 PUFF INHALER INH PRN (17:33)
[2020-03-11] MEDS ORDERED: NITROGLYCERIN 0.4 MG TAB.SUBL SL PRN (17:33)
[2020-03-11] MEDS ORDERED: ALBUTEROL SULFATE 2.5 MG/3 ML NEBULIZER NEB PRN (17:33)
[2020-03-11] MEDS: DOXYCYCLINE HYCLATE 100 MG TABLET.ORL PO SCH (19:20)
[2020-03-11] MEDS: risperiDONE 0.25 MG TABLET PO SCH (19:20)
[2020-03-11] MEDS: HYDROcodone/APAP 5/325MG TABLET PO PRN (19:20)
[2020-03-11] MEDS: cloNIDine HCL 0.1 MG TABLET PO SCH (19:20)
[2020-03-11] MEDS: MINOXIDIL 2.5 MG TABLET PO SCH (19:21)
[2020-03-11] MEDS: DOCUSATE SODIUM 100 MG CAPSULE PO SCH (19:21)
[2020-03-11] MEDS: HEPARIN 5,000 UNIT/ML VIAL SQ SCH (19:21)
[2020-03-12] MEDS: 0.9 % SODIUM CHLORIDE 10 ML SYRINGE IV SCH ×2 (05:43→14:37)
[2020-03-12 06:11] LABS: Basophils # (Auto) 0.05 K/mcL (0.00-0.30); Basophils % (Auto) 0.6 % (0.0-2.0); Eosinophils # (Auto) 0.16 K/mcL (0.00-0.70); Granulocytes % (Auto) 77.4 % (38.0-78.0); Hematocrit 29.2 % (40.1-51.0); Hemoglobin 9.8 g/dL (13.7-17.5); Lymphocytes # (Auto) 0.79 K/mcL (1.50-4.80); Lymphocytes % (Auto) 9.7 % (15.5-49.0); Mean Cell Volume 93.3 fL (80.0-100.0); Mean Corpuscular HGB Conc 33.6 g/dL (31.0-36.0); Mean Platelet Volume 10.3 fL (7.4-10.4); Monocytes # (Auto) 0.84 K/mcL (0.10-0.90); Monocytes % (Auto) 10.3 % (1.0-12.0); Platelet Count 199 K/mcL (140-440); RBC 3.13 M/mcL (4.63-6.08); Red Cell Distribution Width 15.9 % (11.5-14.5); WBC 8.2 K/mcL (4.50-11.00)
[2020-03-12 06:30] LABS: ALT/SGPT 346 U/l (0-40); AST/SGOT 200 U/l (0-37); Albumin/Globulin Ratio 1.4 (1.0-2.3); Alkaline Phosphatase 118 U/L (39-117); Bilirubin,Direct 0.2 mg/dL (0.0-0.3); Bilirubin,Total 0.5 mg/dL (0.0-1.0); Calcium 9.2 mg/dl (8.6-10.4); Globulin 2.9 gm/dL (2.2-3.7); Glucose 86 mg/dL (70-105); Lactate Dehydrogenase 397 U/L (94-250); Triglycerides 57 mg/dl (<150); Uric Acid 4.5 mg/dL (2.5-8.0)
[2020-03-12 06:37] LABS: Blood Urea Nitrogen 41 mg/dl (6-20); Carbon Dioxide 25 mmol/L (22-30); Chloride 93 mmol/L (96-108); Glomerular Filtration Rate 9; Phosphorous 7.1 mg/dL (2.7-4.5)
--- NOTE | 2020-03-12 07:58 | Internal Med Progress Note ---
Medical - PN: Subj Patient information: Note initiated : 03/12/20 at 7:49 am Service Date, if different from initiated Date: [] Patient: Elias Huffman a 50 y/o M admitted on 03/11/20 for Hyperkalemia. Chief Complaint: [] Interval history: Mr. Huffman is a 50 year old M Who was diagnosed with bilateral epididymitis in the past couple days. Like he was in a [facility] ED on the and given doxycycline and went to [facility] on and received Bactrim. When his stage of this morning because of continued pain and they found him to have a wide complex tachycardia felt it was dialysis related. He denies chest pain or shortness of breath. He was treated for hyperkalemia although is only 5.3. Troponin was similar to his consistent elevations in the past. his rhythm converted to a bigeminy no ST changes. The EKGs were reviewed with cardiology who felt there was no acute Cardiologic emergency that necessitated cardiology intervention and that this was related to his electrolytes and dialysis and patient needed dialysis. Case was discussed with Dr. Fabian who accepted the patient and will perform dialysis this morning. Opponent was similar to elevation of the past abdominal CT pelvis without contrast which was unremarkable for any acute pathology. He had an ultrasound done yesterday of the testes which revealed what appeared to be bilateral epididymitis. He complains of bilateral groin gnawing pain. Denies fever chills. 5/2 Doing better today. Discomfort and swelling in his groin is improved some from yesterday. His rhythm is good sinus and narrow complex QRS. Electrolytes much improved after dialysis. Per nursing he had some desaturations while sleeping last night was put on oxygen. He is currently low 90s on room air. Obtain follow-up chest x-ray. May dialyze again today. Review of Systems: denies headache/fever/chills/nausea/vomiting/chest pain/cough/dyspnea/diarrhea. Otherwise see above. - Constitutional Vitals: Vital Signs Temp Pulse Resp BP Pulse Ox 97.7 F 75 12 150/95 96 03/12/20 04:01 03/12/20 02:01 03/12/20 05:01 03/12/20 05:01 03/12/20 02:01 Period Temp Pulse Resp BP Sys/Kaplan Pulse Ox Last 24 Hr 96.9 F-98.7 F 73-112 12-74 121-184/81-131 91-100 Intake and Output 03/11/20 03/12/20 03/12/20 21:59 05:59 13:59 Intake Total 480 180 Output Total 5000 Balance -4520 180 Weight 73.89 kg Intake & Output: Intake & Output 03/11/20 03/12/20 03/12/20 21:59 05:59 13:59 Intake Total 480 180 Output Total 5000 Balance -4520 180 Weight 73.89 kg Intake: Oral 480 180 Output: Hemodialysis UF 5000 Other: Meal Dinner Nourishment/Supplement Percent of Meal Consumed 100% 100% Nourishment/Supplement name mustard and crackers Exam: General: Alert, Awake, No acute Distress Eyes/N/T: EOMI, Head/Neck: neck supple, CV: RRR, 2/6 SM, Pulm: Clear b/l, no wheezing/rhonchi/rales Abd: soft, tender b/l groin/lower abd improving, +BS x4 Ext: no clubbing/cyanosis/edema Neuro: Alert, no focal deficits, moves all extremities, Skin: warm/dry Medical - PN: Obj Da - Labs CBC & Chem 7: 03/12/20 05:00 03/12/20 05:00 Labs: Abnormal Lab Results 03/12/20 03/12/20 03/11/20 05:00 05:00 10:35 RBC 3.13 L Hgb 9.8 L Hct 29.2 L RDW 15.9 H Lymph % (Auto) 9.7 L Lymph # (Auto) 0.79 L Potassium 6.2 H* Chloride 93 L 87 L Anion Gap 19.0 H 24.0 H BUN 41 H 87 H Creatinine 6.6 H* 10.8 H* Uric Acid 8.3 H Phosphorus 7.1 H* 8.9 H* Direct Bilirubin 0.4 H GGT 226 H 222 H AST 200 H 287 H ALT 346 H 310 H Alkaline Phosphatase 118 H 120 H Lactate Dehydrogenase 397 H 538 H Meds: Medications Acetaminophen (Tylenol) 650 mg PO Q6HP PRN PRN Reason: PAIN/FEVER > 101 Hydrocodone Bitart/Acetaminophen ([place] 5/325mg) 1 tab PO Q4HP PRN PRN Reason: PAIN LEVEL 3-6 Last Admin: 05/01/20 19:20 Dose: 1 tab Documented by: Albuterol Sulfate (Ventolin) 1 puff INH Q4HP PRN PRN Reason: Shortness Of Breath Albuterol Sulfate (Ventolin) 2.5 mg NEB Q4HP PRN PRN Reason: Shortness Of Breath Amlodipine Besylate (Norvasc) 10 mg PO DAILY [facility] Aspirin (Aspirin) 81 mg PO DAILY [facility] Calcium Acetate (Phoslo) 2,001 mg PO TIDCC [facility] Carvedilol (Coreg) 50 mg PO BIDCC [facility] Cinacalcet (Sensipar) 30 mg PO QAMCC [facility] Clonidine HCl (Catapres Tts 2) 1 patch TD SA@0900 [facility] Clonidine HCl (Catapres) 0.1 mg PO BID [facility] Last Admin: 03/11/20 19:20 Dose: 0.1 mg Documented by: Clopidogrel Bisulfate (Plavix) 75 mg PO DAILY [facility] Diltiazem HCl (Cardizem Cd) 180 mg PO DAILY [facility] Docusate Sodium (Colace) 100 mg PO BID [facility] Last Admin: 03/11/20 19:21 Dose: Not Given Documented by: Doxycycline Hyclate (Doxycycline Hyclate) 100 mg PO BID [facility]; Protocol Last Admin: 03/11/20 19:20 Dose: 100 mg Documented by: Furosemide (Lasix) 80 mg PO DAILY [facility] Heparin Sodium (Porcine) (Heparin) 5,000 unit SQ Q12 [facility] Last Admin: 03/11/20 19:21 Dose: 5,000 unit Documented by: Isosorbide Mononitrate (Imdur) 60 mg PO DAILY [facility] Lactulose (Cephulac) 20 gm PO DAILYP PRN PRN Reason: Constipation Minoxidil (Minoxidil) 2.5 mg PO BID [facility] Last Admin: 03/11/20 19:21 Dose: 2.5 mg Documented by: Morphine Sulfate (Morphine) 0 mg IV Q3HP PRN PRN Reason: Pain Last Admin: 03/11/20 10:57 Dose: 3 mg Documented by: Nitroglycerin (Nitrostat) 0.4 mg SL Q5M PRN PRN Reason: Chest Pain Ondansetron HCl (Zofran) 4 mg IV Q4HP PRN PRN Reason: Nausea And Vomiting Polyethylene Glycol (Miralax) 17 gm PO DAILYP PRN PRN Reason: Constipation Risperidone (Risperdal) 0.5 mg PO BID [facility] Last Admin: 03/11/20 19:20 Dose: 0.5 mg Documented by: Senlavelle (Senokot) 2 tab PO DAILYP PRN PRN Reason: Constipation Sevelamer Carbonate (Renvela) 1,600 mg PO DAILYP PRN PRN Reason: SNACKS Sevelamer Carbonate (Renvela) 2,400 mg PO TIDCC [facility] Sodium Chloride (Saline Flush) 10 ml IV Q8 [facility] Last Admin: 03/12/20 05:43 Dose: 10 ml Documented by: Tiotropium [place] (Spiriva) 18 mcg INH DAILY [facility] Medical - PN: A/P - Time Spent With Patient Total time spent is greater than 50% in coordination of care (as documented) at patient's floor/unit and/or counseling patient: - Narrative A/P Narrative: Assessment: *Arrhythmia: wide complex tachy initially, -Case discussed w/cardiology who reviewed ekg/labs with ED physician & felt electrolyte/ESRD related, no cardiac intervention needed. -f/u EKG now narrow QRS, SR *Hyperkalemia: resolved *ESRD: follows with [facility] *Anemia, chronic: *Transaminitis: h/o same at [facility] in november *Epididymo-orchitis: -CT a/p unremarkable; no torsion on US, just right epididymo-orchitis and moderate hydrocele -leukocytosis resolved *CAD w/stents: *HTN: *Tobacco abuse: *Schizoaffective disorder: *COPD: Plan: -HD/electrolytes/BP per Dr. Fabian -Abx -UA -CXR -liver u/s, hepatitis panel -cont home antiplatelets/statin/imdur -cont home coreg/norvasc/clonidine/minoxidil/lasix -Smoking cessation counseling -ppx: Heparin full code Medical - PN: Qual - VTE Deep Vein Thrombosis/Pulmonary Embolism Present on Admission: No
[2020-03-12] MEDS ORDERED: CARVEDILOL 12.5 MG TABLET PO SCH (08:00)
[2020-03-12] MEDS: CALCIUM ACETATE 667 MG CAPSULE PO SCH ×3 (08:33→17:30)
[2020-03-12] MEDS: CINACALCET 30 MG TABLET PO SCH (08:33)
[2020-03-12] MEDS: SEVELAMER 800 MG TABLET PO SCH ×3 (08:33→17:30)
[2020-03-12] MEDS ORDERED: cloNIDine TTS 2 1 PATCH PATCH TD SCH (09:00)
[2020-03-12] MEDS ORDERED: DILTIAZEM 180 MG CAP.XL.24H PO SCH (09:00)
[2020-03-12] MEDS: HEPARIN 5,000 UNIT/ML VIAL SQ SCH ×2 (09:51→23:49)
[2020-03-12 09:52] LABS: Hepatitis B Surface Antigen NEGATIVE (NEGATIVE)
[2020-03-12] MEDS: amLODIPine 10 MG TABLET PO SCH (09:52)
[2020-03-12] MEDS: FUROSEMIDE 40 MG TABLET PO SCH (09:52)
[2020-03-12] MEDS: CLOPIDOGREL 75 MG TABLET PO SCH (09:52)
[2020-03-12] MEDS: LACTULOSE 20 GM/30 ML ORAL.SOL PO PRN (09:52)
[2020-03-12] MEDS: DOCUSATE SODIUM 100 MG CAPSULE PO SCH ×2 (09:52→23:49)
[2020-03-12] MEDS: cloNIDine HCL 0.1 MG TABLET PO SCH ×2 (09:52→23:49)
[2020-03-12] MEDS: ISOSORBIDE MONONITRATE 60 MG TAB.XL.24H PO SCH (09:52)
[2020-03-12] MEDS: risperiDONE 0.25 MG TABLET PO SCH ×2 (09:53→23:48)
[2020-03-12] MEDS: ASPIRIN 81 MG TAB.CHEW PO SCH (09:53)
[2020-03-12] MEDS: HYDROcodone/APAP 5/325MG TABLET PO PRN ×4 (09:53→23:49)
[2020-03-12] MEDS: CARVEDILOL 12.5 MG TABLET PO SCH ×2 (09:53→17:31)
--- NOTE | 2020-03-12 09:53 | Discharge Summary ---
Medical - DS: Prov Patient information: Note initiated : 03/12/20 at 9:51 am Service Date, if different from initiated Date: [] Patient: Elias Huffman 50 y/o M admitted on 03/11/20 for Hyperkalemia. Chief Complaint: [] Date of admission: 03/11/20 08:37 Discharge date: 03/13/20 Primary care physician: Fabi Singh Consults: 03/11/20 09:39 Consult to Physician [CONS] Routine Comment: Consulting Provider: Levon Fabian Reason For Exam: Physician to Consult Medical - DS: Meds - Discharge Medications Prescriptions: Doxycycline Hyclate 100 mg PO BID #1 tablet.orl [facility] Medications: Home Medications Aspirin [[place] Aspirin] 325 mg PO DAILY 11/09/17 [History Confirmed 03/11/20 Last Taken 12/19/19] Clopidogrel Bisulfate [Plavix] 75 mg PO DAILY 11/09/17 [History Confirmed 03/11/20 Last Taken 12/19/19] Furosemide [Lasix] 80 mg PO DAILY 11/09/17 [History Confirmed 03/11/20 Last Taken 12/19/19] Isosorbide Mononitrate [Imdur] 60 mg PO DAILY 11/09/17 [History Confirmed 03/11/20 Last Taken 12/19/19] Nitroglycerin 0.4 mg SL Q5M PRN 11/09/17 [History Confirmed 03/11/20 Last Taken 10/11/19] Sevelamer [Renvela] 1,600 mg PO PRN PRN 11/09/17 [History Confirmed 03/11/20 Last Taken 12/19/19] amLODIPine [Norvasc] 10 mg PO DAILY 11/09/17 [History Confirmed 03/11/20 Last Taken 12/19/19] Cinacalcet [Sensipar] 30 mg PO QAMCC 07/08/19 [History Confirmed 03/11/20 Last Taken 12/19/19] Diltiazem [Cardizem Cd] 180 mg PO DAILY 07/08/19 [History Confirmed 03/11/20 Last Taken 12/19/19] Folic Acid/Vit B Complex and C [Dialyvite Tablet] 1 tab PO DAILY 07/08/19 [History Confirmed 03/11/20 Last Taken 12/19/19] Minoxidil 2.5 mg PO BID 07/08/19 [History Confirmed 03/11/20 Last Taken 12/19/19] Sevelamer [Renvela] 2,400 mg PO TIDCC 07/08/19 [History Confirmed 03/11/20 Last Taken 12/19/19] risperiDONE [Risperdal] 0.5 mg PO BID 07/08/19 [History Confirmed 03/11/20 Last Taken 12/19/19] Albuterol Sulfate [Ventolin] 1 puff INH Q4HP PRN 08/30/19 [History Confirmed 03/11/20 Last Taken 12/19/19] cloNIDine TTS 2 [Catapres Tts 2] 1 patch TD SA@0900 #0 08/30/19 [History Confirmed 03/11/20 Last Taken 12/19/19] Albuterol Sulfate [Ventolin] 2.5 mg NEB Q2HP PRN 03/11/20 [History Confirmed 03/11/20 Last Taken Unknown] Calcium Acetate [Phoslo] 2,001 mg PO TIDCC 03/11/20 [History Confirmed 03/11/20 Last Taken Unknown] Carvedilol [Coreg] 50 mg PO BIDCC 03/11/20 [History Confirmed 03/11/20 Last Taken Unknown] Ondansetron [Zofran ODT] 8 mg SL Q6HP PRN 03/11/20 [History Confirmed 03/11/20 Last Taken Unknown] Tiotropium [place] [Spiriva] 18 mcg INH DAILY 03/11/20 [History Confirmed 03/11/20 Last Taken Unknown] Vit B Cmplx 3/FA/Vit C/Biotin [Nephro-Evin Rx Tablet] 1 tab PO DAILY 03/11/20 [ History Confirmed 03/11/20 Last Taken Unknown] cloNIDine HCL [Catapres] 0.1 mg PO BID 03/11/20 [History Confirmed 03/11/20 Last Taken Unknown] Home Medications Aspirin [[place] Aspirin] 325 mg PO DAILY 11/09/17 [History Confirmed 03/11/20 Last Taken 12/19/19] Clopidogrel Bisulfate [Plavix] 75 mg PO DAILY 11/09/17 [History Confirmed 03/11/20 Last Taken 12/19/19] Furosemide [Lasix] 80 mg PO DAILY 11/09/17 [History Confirmed 03/11/20 Last Taken 12/19/19] Isosorbide Mononitrate [Imdur] 60 mg PO DAILY 11/09/17 [History Confirmed 03/11/20 Last Taken 12/19/19] Nitroglycerin 0.4 mg SL Q5M PRN 11/09/17 [History Confirmed 03/11/20 Last Taken 10/11/19] Sevelamer [Renvela] 1,600 mg PO PRN PRN 11/09/17 [History Confirmed 03/11/20 Last Taken 12/19/19] amLODIPine [Norvasc] 10 mg PO DAILY 11/09/17 [History Confirmed 03/11/20 Last Taken 12/19/19] Cinacalcet [Sensipar] 30 mg PO [facility] 07/08/19 [History Confirmed 03/11/20 Last Taken 12/19/19] Diltiazem [Cardizem Cd] 180 mg PO DAILY 07/08/19 [History Confirmed 03/11/20 Last Taken 12/19/19] Folic Acid/Vit B Complex and C [Dialyvite Tablet] 1 tab PO DAILY 07/08/19 [History Confirmed 03/11/20 Last Taken 12/19/19] Minoxidil 2.5 mg PO BID 07/08/19 [History Confirmed 03/11/20 Last Taken 12/19/19] Sevelamer [Renvela] 2,400 mg PO TIDCC 07/08/19 [History Confirmed 03/11/20 Last Taken 12/19/19] risperiDONE [Risperdal] 0.5 mg PO BID 07/08/19 [History Confirmed 03/11/20 Last Taken 12/19/19] Albuterol Sulfate [Ventolin] 1 puff INH Q4HP PRN 08/30/19 [History Confirmed 03/11/20 Last Taken 12/19/19] cloNIDine TTS 2 [Catapres Tts 2] 1 patch TD SA@0900 #0 08/30/19 [History Confirmed 03/11/20 Last Taken 12/19/19] Albuterol Sulfate [Ventolin] 2.5 mg NEB Q2HP PRN 03/11/20 [History Confirmed 03/11/20 Last Taken Unknown] Calcium Acetate [Phoslo] 2,001 mg PO TIDCC 03/11/20 [History Confirmed 03/11/20 Last Taken Unknown] Carvedilol [Coreg] 50 mg PO BIDCC 03/11/20 [History Confirmed 03/11/20 Last Taken Unknown] Ondansetron [Zofran ODT] 8 mg SL Q6HP PRN 03/11/20 [History Confirmed 03/11/20 Last Taken Unknown] Tiotropium [place] [Spiriva] 18 mcg INH DAILY 03/11/20 [History Confirmed 03/11/20 Last Taken Unknown] Vit B Cmplx 3/FA/Vit C/Biotin [Nephro-Evin Rx Tablet] 1 tab PO DAILY 03/11/20 [History Confirmed 03/11/20 Last Taken Unknown] cloNIDine HCL [Catapres] 0.1 mg PO BID 03/11/20 [History Confirmed 03/11/20 Last Taken Unknown] Doxycycline Hyclate 100 mg PO BID #1 tablet.orl 03/13/20 [Rx Last Taken Unknown] Medical - DS: Hosp Hospital Course: Mr. Huffman is a 50 year old M Who was diagnosed with bilateral epididymitis in the past couple days. Like he was in a [place] ED on the and given doxycycline and went to [facility] on and received Bactrim. When his stage of this morning because of continued pain and they found him to have a wide complex tachycardia felt it was dialysis related. He denies chest pain or shortness of breath. He was treated for hyperkalemia although is only 5.3. Troponin was similar to his consistent elevations in the past. his rhythm converted to a bigeminy no ST changes. The EKGs were reviewed with cardiology who felt there was no acute Cardiologic emergency that necessitated cardiology intervention and that this was related to his electrolytes and dialysis and patient needed dialysis. Case was discussed with Dr. Fabian who accepted the patient and will perform dialysis this morning. Opponent was similar to elevation of the past abdominal CT pelvis without contrast which was unremarkable for any acute pathology. He had an ultrasound done yesterday of the testes which revealed what appeared to be bilateral epididymitis. He complains of bilateral groin gnawing pain. Denies fever chills. 5/2 Doing better today. Discomfort and swelling in his groin is improved some from yesterday. His rhythm is good sinus and narrow complex QRS. Electrolytes much improved after dialysis. Per nursing he had some desaturations while sleeping last night was put on oxygen. He is currently low 90s on room air. Obtain follow-up chest x-ray. May dialyze again today. 03/13 Doing well no new complaints. Groin pain improved. Saturations on room air. Assessment: *Arrhythmia: wide complex tachy initially, -Case discussed w/cardiology who reviewed ekg/labs with ED physician & felt electrolyte/ESRD related, no cardiac intervention needed. -f/u EKG now narrow QRS, SR *Hyperkalemia: resolved *ESRD: follows with Fabian *Anemia, chronic: *Transaminitis: h/o same at [facility] in november *Epididymo-orchitis: -CT a/p unremarkable; no torsion on US, just right epididymo-orchitis and moderate hydrocele -leukocytosis resolved *CAD w/stents: *HTN: *Tobacco abuse: *Schizoaffective disorder: *COPD: Discharge diagnosis: Hyperkalemia with EKG changes stage renal disease Secondary discharge diagnosis: Transaminitis epididymoorchitis CAD hypertension back abuse schizoaffective disorder COPD hyperkalemia anemia - Time Spent with Patient Total time spent providing and/or coordinating discharge services: Greater than 30 minutes Medical - DS: Exam - Constitutional Vitals: Vital Signs Temp Pulse Resp BP Pulse Ox 03/12/20 09:01 82 17 143/92 91 03/12/20 08:01 74 15 144/99 97 03/12/20 07:54 93 03/12/20 07:01 15 161/103 03/12/20 06:01 20 148/100 03/12/20 05:01 12 150/95 03/12/20 04:01 97.7 F 24 H 131/87 03/12/20 03:01 16 134/92 03/12/20 02:01 75 24 H 128/81 96 03/12/20 01:55 22 96 03/12/20 01:01 12 137/95 93 03/12/20 00:01 17 140/92 91 03/11/20 23:23 97.2 F 74 22 132/102 96 03/11/20 22:07 79 138/100 92 03/11/20 22:01 149/104 03/11/20 21:01 139/97 03/11/20 20:01 80 158/103 100 03/11/20 20:00 97 03/11/20 19:01 125/87 03/11/20 18:32 98.7 F 18 124/86 97 03/11/20 17:31 121/82 03/11/20 17:01 139/99 03/11/20 16:31 131/85 03/11/20 16:01 97.6 F 74 H 133/91 93 03/11/20 14:59 79 129/88 03/11/20 14:43 98.2 F 79 142/93 03/11/20 14:30 97.4 F 73 130/89 03/11/20 14:15 76 147/94 03/11/20 14:01 78 155/100 94 03/11/20 14:00 77 20 155/100 93 03/11/20 13:45 78 167/101 03/11/20 13:30 78 144/102 03/11/20 13:15 80 150/99 03/11/20 13:01 80 153/101 99 03/11/20 13:00 80 153/101 03/11/20 12:45 83 147/99 03/11/20 12:31 160/102 93 03/11/20 12:30 83 160/102 03/11/20 12:16 152/107 93 03/11/20 12:15 83 152/107 03/11/20 12:00 98.2 F 86 154/101 94 03/11/20 11:45 109 H 160/116 03/11/20 11:30 98.2 F 112 H 161/116 03/11/20 11:15 110 H 168/114 03/11/20 11:00 83 153/103 03/11/20 10:43 97.9 F 110 H 176/125 03/11/20 10:36 97.9 F 109 H 171/120 Intake and Output 03/11/20 03/12/20 03/12/20 21:59 05:59 13:59 Intake Total 480 180 720 Output Total 5000 Balance -4520 180 720 Intake: Oral 480 180 720 Output: Hemodialysis UF 5000 Other: Meal Dinner Nourishment/Supplement Breakfast Percent of Meal Consumed 100% 100% 100% Feeding Ability Independent Nourishment/Supplement name mustard and crackers Weight 73.89 kg Medical - DS: Data Labs on day of discharge: Labs from last 24 hours 03/12/20 03/12/20 03/12/20 08:12 05:00 05:00 WBC 8.2 RBC 3.13 L Hgb 9.8 L Hct 29.2 L MCV 93.3 MCH 31.3 MCHC 33.6 RDW 15.9 H Plt Count 199 MPV 10.3 Gran % 77.4 Lymph % (Auto) 9.7 L [place] % (Auto) 10.3 Eos % (Auto) 2.0 Baso % (Auto) 0.6 Gran # 6.34 Lymph # (Auto) 0.79 L [place] # (Auto) 0.84 Eos # (Auto) 0.16 Baso # (Auto) 0.05 Sodium 137 Potassium 4.4 Chloride 93 L Carbon Dioxide 25 Anion Gap 19.0 H BUN 41 H Creatinine 6.6 H* GFR Calculation 9 Glucose 86 Uric Acid 4.5 Calcium 9.2 Phosphorus 7.1 H* Magnesium 2.1 Total Bilirubin 0.5 Direct Bilirubin 0.2 GGT 226 H AST 200 H ALT 346 H Alkaline Phosphatase 118 H Lactate Dehydrogenase 397 H Total Protein 6.9 Albumin 4.0 Globulin 2.9 Albumin/Globulin Ratio 1.4 Triglycerides 57 Hepatitis A IgM Ab Pending Hep Bs Antigen Pending Hep B Core IgM Ab Pending Hepatitis C Antibody Pending HCV RNA Quant (PCR) Pending HCV RNA PCR log IUs/ml Pending 03/11/20 10:35 WBC RBC Hgb Hct MCV MCH MCHC RDW Plt Count MPV Gran % Lymph % (Auto) [place] % (Auto) Eos % (Auto) Baso % (Auto) Gran # Lymph # (Auto) [place] # (Auto) Eos # (Auto) Baso # (Auto) Sodium 133 Potassium 6.2 H* Chloride 87 L Carbon Dioxide 22 Anion Gap 24.0 H BUN 87 H Creatinine 10.8 H* GFR Calculation 5 Glucose 92 Uric Acid 8.3 H Calcium 9.5 Phosphorus 8.9 H* Magnesium 2.4 Total Bilirubin 0.8 Direct Bilirubin 0.4 H GGT 222 H AST 287 H ALT 310 H Alkaline Phosphatase 120 H Lactate Dehydrogenase 538 H Total Protein 6.7 Albumin 4.1 Globulin 2.6 Albumin/Globulin Ratio 1.6 Triglycerides 54 Hepatitis A IgM Ab Hep Bs Antigen Hep B Core IgM Ab Hepatitis C Antibody HCV RNA Quant (PCR) HCV RNA PCR log IUs/ml Medical - DS: A/P - Patient/Caregiver Discharge Instructions Activity: increase activity as tolerated Diet: Renal Additional Instructions: Follow-up with PCP in 3 to 7 days Prescriptions: Doxycycline Hyclate 100 mg PO BID #1 tablet.orl Transmission Status: Pending to [facility] - Follow up Plan Follow up with: Levon Fabian MD [Physician] - Disposition: Home, Self-Care Prognosis: Fair Rehab Potential: Fair Overall status at discharge: patient is progressing back to baseline Medical - DS: Qual - VTE Deep Vein Thrombosis/Pulmonary Embolism Present on Admission: No
[2020-03-12] MEDS: TIOTROPIUM BROMIDE 18 MCG INHALANT INH SCH (09:54)
[2020-03-12] MEDS: DOXYCYCLINE HYCLATE 100 MG TABLET.ORL PO SCH ×2 (09:58→23:49)
[2020-03-12 10:05] LABS: Hepatitis C Virus Antibody SEE COMMENT: (NEGATIVE)
[2020-03-12] MEDS: SEVELAMER 800 MG TABLET PO PRN (10:38)
[2020-03-12] MEDS: MINOXIDIL 2.5 MG TABLET PO SCH ×2 (10:39→23:50)
[2020-03-12 14:44] LABS: Appearance,Urine CLEAR; Bacteria,Urine 0 /hpf (0); Bilirubin,Urine NEG (NEG); Color,Urine YELLOW; Culture Indicated,Urine NO; Glucose,Urine (UA) 50 mg/dL (NEG); Ketones,Urine NEG (NEG); Leukocyte Esterase,Urine NEG /uL (NEG); Nitrate,Urine NEG (NEG); Other Casts,Urine FEW /lpf (0); Protein,Urine 100 mg/dL (NEG); Urine Blood NEG mg/dL (<0.03); Urine RBC 1 /hpf (0-1); Urine Squamous Epithelial Cell < 1 /hpf (0-4); Urine WBC 3 /hpf (0-4); Urobilinogen,Urine NEG (NEG)
--- NOTE | 2020-03-12 14:45 | XRay Report ---
CLINICAL INFORMATION: f/u CHF from 03/11 and Dec Films COMPARISON: 12/19/2019 FINDINGS: Moderate cardiomegaly show slight decrease in previous study. Mediastinum is unremarkable. Pulmonary vessels are only slightly distended. No definite edema no infiltrate. IMPRESSION: Borderline CHF Interpreted and Authenticated by: Elias Rose 03/12/20
--- NOTE | 2020-03-12 14:59 | Ultrasound Report ---
CLINICAL INFORMATION: transaminitis COMPARISON: CT 11/20/2019 FINDINGS: Liver is slightly enlarged with elevated echotexture without fatty change or other diffuse hepatocellular process. No focal hepatic lesion. The gallbladder is surgically absent. Common bile duct is normal at 5 mm. The pancreas is unremarkable. No free fluid IMPRESSION: Mildly enlarged liver with elevated echotexture compatible with fatty change or other diffuse hepatocellular process. Interpreted and Authenticated by: Elias Rose 03/12/20
[2020-03-13] MEDS: 0.9 % SODIUM CHLORIDE 10 ML SYRINGE IV SCH ×2 (00:24→05:24)
[2020-03-13] MEDS: SEVELAMER 800 MG TABLET PO PRN (00:26)
[2020-03-13 07:23] LABS: ALT/SGPT 281 U/l (0-40); AST/SGOT 108 U/l (0-37); Albumin 3.9 gm/dL (3.2-5.2); Albumin/Globulin Ratio 1.5 (1.0-2.3); Alkaline Phosphatase 112 U/L (39-117); Bilirubin,Direct 0.2 mg/dL (0.0-0.3); Bilirubin,Total 0.5 mg/dL (0.0-1.0); Blood Urea Nitrogen 59 mg/dl (6-20); Calcium 8.9 mg/dl (8.6-10.4); Carbon Dioxide 29 mmol/L (22-30); Chloride 86 mmol/L (96-108); Globulin 2.6 gm/dL (2.2-3.7); Glomerular Filtration Rate 7; Glucose 97 mg/dL (70-105); Lactate Dehydrogenase 310 U/L (94-250); Phosphorous 7.2 mg/dL (2.7-4.5); Triglycerides 48 mg/dl (<150); Uric Acid 6.1 mg/dL (2.5-8.0)
[2020-03-13] MEDS ORDERED: CARVEDILOL 12.5 MG TABLET PO SCH (08:00)
[2020-03-13 08:41] LABS: Amphetamine Screen,Urine SUSPECT POSITIVE (NONDETECTED); Barbiturate Screen,Urine NONE DETECTED (NONDETECTED); Benzodiazepines Screen,Urine NONE DETECTED (NONDETECTED); Cannabinoid Screen,Urine SUSPECT POSITIVE (NONDETECTED); Cocaine Screen,Urine NONE DETECTED (NONDETECTED); Opiate Screen,Urine SUSPECT POSITIVE (NONDETECTED); Oxycodone, Urine Screen NONE DETECTED (NONDETECTED); Phencyclidine Screen,Urine NONE DETECTED (NONDETECTED)
[2020-03-13] MEDS: amLODIPine 10 MG TABLET PO SCH (09:07)
[2020-03-13] MEDS: ISOSORBIDE MONONITRATE 60 MG TAB.XL.24H PO SCH (09:07)
[2020-03-13] MEDS: MINOXIDIL 2.5 MG TABLET PO SCH (09:07)
[2020-03-13] MEDS: cloNIDine HCL 0.1 MG TABLET PO SCH (09:08)
[2020-03-13] MEDS: TIOTROPIUM BROMIDE 18 MCG INHALANT INH SCH (09:08)
[2020-03-13] MEDS: HYDROcodone/APAP 5/325MG TABLET PO PRN (09:23)
[2020-03-13] MEDS: CLOPIDOGREL 75 MG TABLET PO SCH (09:23)
[2020-03-13] MEDS: risperiDONE 0.25 MG TABLET PO SCH (09:23)
[2020-03-13] MEDS: ASPIRIN 81 MG TAB.CHEW PO SCH (09:23)
[2020-03-13] MEDS: DOCUSATE SODIUM 100 MG CAPSULE PO SCH (09:23)
[2020-03-13] MEDS: CINACALCET 30 MG TABLET PO SCH (09:23)
[2020-03-13] MEDS: FUROSEMIDE 40 MG TABLET PO SCH (09:23)
[2020-03-13] MEDS: DOXYCYCLINE HYCLATE 100 MG TABLET.ORL PO SCH (09:23)
[2020-03-13] MEDS: LACTULOSE 20 GM/30 ML ORAL.SOL PO PRN (09:24)
[2020-03-13] MEDS: SEVELAMER 800 MG TABLET PO SCH (09:24)
[2020-03-13] MEDS: CALCIUM ACETATE 667 MG CAPSULE PO SCH (09:24)
[2020-03-13] MEDS: HEPARIN 5,000 UNIT/ML VIAL SQ SCH (09:24)
== END 2020-03-13 11:55 | disposition home or self-care (01) | DRG 640 ==
LOC: ICU 08:37
PROVIDERS: ADMIT Internal Medicine; ATTEND Internal Medicine

== ENCOUNTER 2020-07-18 13:55 | Inpatient (IN) ==
[2020-07-18] MEDS ORDERED: IOPAMIDOL 100 ML BOTTLE IV ONE (13:56)
[2020-07-18] MEDS ORDERED: methylPREDNISolone SOD SUCC 125 MG/2 ML VIAL ONE (14:02)
[2020-07-18] MEDS ORDERED: ALBUTEROL SULFATE 2.5 MG/3 ML NEBULIZER NEB ONE (14:16)
[2020-07-18] MEDS ORDERED: methylPREDNISolone SOD SUCC 125 MG/2 ML VIAL IV ONE (14:38)
[2020-07-18 15:26] LABS: Basophils # (Auto) 0.07 K/mcL (0.00-0.30); Basophils % (Auto) 0.6 % (0.0-2.0); Eosinophils # (Auto) 0.41 K/mcL (0.00-0.70); Eosinophils % (Auto) 3.5 % (0.0-7.0); Granulocytes % (Auto) 74.8 % (38.0-78.0); Hemoglobin 13.6 g/dL (13.7-17.5); Lymphocytes # (Auto) 1.39 K/mcL (1.50-4.80); Lymphocytes % (Auto) 11.9 % (15.5-49.0); Mean Cell Volume 93.3 fL (80.0-100.0); Mean Corpuscular HGB Conc 32.4 g/dL (31.0-36.0); Mean Platelet Volume 9.9 fL (7.4-10.4); Monocytes # (Auto) 1.07 K/mcL (0.10-0.90); Monocytes % (Auto) 9.2 % (1.0-12.0); Platelet Count 305 K/mcL (140-440); Red Cell Distribution Width 15.4 % (11.5-14.5); WBC 11.7 K/mcL (4.50-11.00)
[2020-07-18 15:31] LABS: ABG Methemoglobin 0.3 % (0.4-1.5); Total Hemoglobin 12.7 gm/dL (13.5-16.5); VBG HCO3 26.9 mmol/L (24.0-28.0); VBG Oxygen Saturation 75.7 % (40.0-70.0); VBG PCO2 48.3 mmHg (41.0-51.0); VBG PH 7.36 U (7.32-7.42); VBG PO2 49 mmHg (25-40); VBG Total CO2 28.4 mmol/L (25.0-29.0)
[2020-07-18 15:36] LABS: ALT/SGPT 25 U/l (0-40); AST/SGOT 33 U/l (0-37); Albumin 4.6 gm/dL (3.2-5.2); Albumin/Globulin Ratio 1.3 (1.0-2.3); Alkaline Phosphatase 131 U/L (39-117); Bilirubin,Total 0.4 mg/dL (0.0-1.0); Blood Urea Nitrogen 27 mg/dl (6-20); Calcium 9.8 mg/dl (8.6-10.4); Carbon Dioxide 21 mmol/L (22-30); Globulin 3.6 gm/dL (2.2-3.7); Glucose 129 mg/dL (70-105)
[2020-07-18 15:59] LABS: Chloride 89 mmol/L (96-108); Glomerular Filtration Rate 10
--- NOTE | 2020-07-18 18:40 | XRay Report ---
CLINICAL INFORMATION: sob COMPARISON: 03/12/2020 FINDINGS: The heart is moderately enlarged. Mediastinum is normal. Pulmonary vessels are mildly distended and there is minimal interstitial edema in the perihilar regions. Mild bibasilar atelectasis noted. Small right pleural effusion appreciated. IMPRESSION: Mild CHF Interpreted and Authenticated by: Elias Rose 07/18/20
--- NOTE | 2020-07-18 19:16 | Cat Scan Report ---
CLINICAL INFORMATION: Elevated d-dimer and dyspnea COMPARISON: Chest CT 11/20/2019 TECHNIQUE: ml of Isovue-370 were injected intravenously. Using SmartPrep to maximize pulmonary artery opacification, .625mm helical slices were obtained from the lung apices through the lung bases. Following reconstruction, 2.5 mm sagittal, coronal, and axial reformations were processed. The exam was reviewed at mediastinal, lung, and bone windows. The exam was performed using radiation dose optimization techniques including, but not limited to, automated exposure control, adjustment of the mA and/or kV according to patient size and use of iterative reconstruction technique. FINDINGS: Pulmonary parenchymal windows show moderate centrilobular emphysema consisting, predominantly, of chronic bronchitis with elevated lung volumes, wall thickening of the bronchi and scattered small bullae within the upper lobes. There is a small groundglass infiltrate in the anterior segment of the left upper lobe on image 46 which is new: It may represent a mild infection. Scattered tree-in-bud airspace disease in the periphery of both lungs may represent respiratory bronchiolitis - a noninfectious inflammatory degeneration seen in smokers. There is subsegmental atelectasis in both posterior lower lobes and small bilateral pleural effusions. 11 x 5 mm pleural-based scar seen in the superior segment of the left lower lobe on image 75 The mediastinal windows show moderate cardiomegaly with extraordinarily heavy calcific atherosclerotic plaque throughout the coronary arteries reticulated four patient's age. The pulmonary arteries are well-opacified without evidence of embolus. Thoracic aorta is normal in diameter with diffuse intimal thickening. There are multiple mildly enlarged lymph nodes ranging up to 13 mm in the lower paratracheal, pericarinal, AP window and hilar regions. These have involuted slightly from prior CT. The esophagus is grossly normal. Two low-attenuation lesions within the mid right thyroid is approximately 8 mm. Bone windows show no osseous abnormality. Images should the superior abdomen show moderate bilateral renal atrophy - each kidney is estimated 7.5 cm in length. The visualized spleen and pancreas adrenal glands and liver are normal. IMPRESSION: 1. No evidence of pulmonary embolus. 2. New small groundglass infiltrate in the left upper lobe - possible developing pneumonia. 3. Moderate centrilobular emphysema with scattered scarring throughout both lungs. Scattered tree-in-bud airspace disease in the periphery of both lungs is suggestive of respiratory bronchiolitis - a noninfectious inflammatory condition seen exclusively in smokers 4. Subsegmental atelectasis in both posterior lower lobes and small effusions 5. Moderate cardiomegaly with extremely heavy calcific plaque in the coronary arteries for the patient's age. Consider referral for cardiac stress testing if this previously unknown 6. Mild mediastinal and hilar adenopathy which show slight involution from the comparison chest CT nine months prior. It is almost certainly benign reactive adenopathy. 7. Moderate bilateral renal atrophy. Interpreted and Authenticated by: Elias Rose 07/18/20
[2020-07-18] MEDS ORDERED: LABETALOL 5 MG/ML ML IV ONE (19:39)
[2020-07-18] MEDS ORDERED: cefTRIAXone 1 GM VIAL IV ONE (19:39)
--- NOTE | 2020-07-18 19:44 | Emergency Department Note ---
HPI General Chief complaint: Shortness of Breath/Dyspnea Stated complaint: Shortness of breath Time Seen by Provider: 07/18/20 14:00 Source: EMS Mode of arrival: EMS Limitations: altered mental status History of Present Illness HPI Narrative: 50-year old patient presenting with chief complaint of dyspnea. Patient's dyspnea arose over the course of today beginning about an hour prior to EMS arrival with associated symptoms of cough, and wheezing. Patient with associated symptoms of cough, sputum, gradual progression, orthopnea, fever. Past medical history is significant for asthma/COPD/dialysis, deconditioning. This patient's dyspnea was exacerbated by exertion within 50-100 feet of walking or several minutes of exercise. Also was not associated with a nocturnal component. Symptoms are continuous. Additional associated symptoms such as cough, sputum production, nasal congestion, chest pain, peripheral edema, joint swelling, muscle weakness were also inquired. Patient primarily with dyspnea sensation of working very hard to breathe. Related Data Home Medications Medication Instructions Recorded Confirmed amlodipine 10 mg PO DAILY 11/09/17 07/18/20 aspirin [St Yannick Aspirin] 325 mg PO DAILY 11/09/17 07/18/20 clopidogrel [Plavix] 75 mg PO DAILY 11/09/17 07/18/20 furosemide 80 mg PO DAILY 11/09/17 07/18/20 isosorbide mononitrate 60 mg PO DAILY 11/09/17 07/18/20 nitroglycerin 0.4 mg SL Q5M PRN 11/09/17 07/18/20 sevelamer carbonate 1,600 mg PO PRN PRN 11/09/17 07/18/20 B complex-vitamin C-folic acid 1 tab PO DAILY 07/08/19 07/18/20 cinacalcet 30 mg PO QAMCC 07/08/19 07/18/20 diltiazem HCl 180 mg PO DAILY 07/08/19 07/18/20 minoxidil 2.5 mg PO BID 07/08/19 07/18/20 risperidone 0.5 mg PO BID 07/08/19 07/18/20 sevelamer carbonate 2,400 mg PO TIDCC 07/08/19 07/18/20 albuterol sulfate 1 puff INH Q4HP PRN 08/30/19 07/18/20 clonidine 1 patch TRANSDERMAL SA@0900 #0 08/30/19 07/18/20 albuterol sulfate 2.5 mg NEB Q2HP PRN 03/11/20 07/18/20 calcium acetate(phosphat bind) 2,001 mg PO TIDCC 03/11/20 07/18/20 carvedilol 25 mg PO BID 03/11/20 07/18/20 clonidine HCl 0.1 mg PO BID 03/11/20 07/18/20 tiotropium bromide 18 mcg INH DAILY 03/11/20 07/18/20 vit B comp no.1-dkvwe-J-biotin 1 tab PO DAILY 03/11/20 07/18/20 Allergies Allergy/AdvReac Type Severity Reaction Status Date / Time quetiapine [From Seroquel] AdvReac Mild Agitated Verified 07/18/20 22:12 Review of Systems ROS ROS Narrative: Narrative: All systems ED: reviewed and negative except as stated. [facility] Narrative Patient History Narrative: Narrative: Medical/Surgical/Family History All Active Problems (Updated 07/18/20 @ 20:10 by Agus Lee MD) Renal failure (ARF), acute on chronic (Acute) Acute exacerbation of chronic obstructive airways disease (Acute) ESRD (end stage renal disease) on dialysis (Chronic) Hypertension (Chronic) Chest pain (Acute) Abdominal pain (Acute) Hyperkalemia (Acute) Pulmonary edema (Acute) Acute hyperkalemia (Acute) Strain of lumbar region (Acute) Left against medical advice (Acute) Congestive heart failure (CHF) (Acute) Epididymitis (Acute) Community acquired pneumonia (Acute) Social History Smoking Status: Current every day smoker Exam Narrative Narrative: Narrative: Vital signs and evaluated for evidence of hypoxia or hemodynamic compromise specifically tachycardia/hypotension General: Alert, interactive, appropriate Head: Atraumatic, normocephalic Eyes: Extraocular movements intact, sclera anicteric, no conjunctival injection Ears: Pinnae normal, no discharge Mouth: Oral mucosa moist, no acute swelling or evidence of infection Nares: No nasal discharge, patent bilaterally Neck: Trachea midline, full range of motion Chest: Symmetrical chest wall rise, tachypneic, labored respirations, appears to have significant respiratory fatigue, patient states he is full code Cardiovascular: Patient with excellent perfusion to the extremities; with tachycardia Extremities: Full range of motion joints, no obvious deformities Neuro: Alert, oriented x3, cranial nerves II through XII grossly intact, patient without lateralizing findings such as weakness, or abnormal reflexes Psychiatric: Normal affect, normal mood General Limitations: altered mental status Course Vital Signs Vital signs: Vital Signs Pulse Rate 93 H 07/18/20 13:55 Respiratory Rate 32 H 07/18/20 13:55 Blood Pressure 212/141 07/18/20 13:55 Pulse Oximetry (%) 100 07/18/20 13:55 Temperature 97.8 F 07/18/20 21:26 Pulse Rate 93 H 07/18/20 21:26 Respiratory Rate 22 07/18/20 21:26 Blood Pressure 194/110 07/18/20 21:26 Pulse Oximetry (%) 96 07/18/20 21:26 MDM MDM Narrative Medical decision making narrative: Acute dyspnea differential diagnosis considered in this case included [place], heart failure, cardiac tamponade, bronchospasm, pulmonary embolism, pneumothorax, pneumonia or infection, and upper airway obstruction. After review of chart and patient history/physical exam/labs as well as imaging the differential diagnosis addressed was acute hypoxic respiratory failure, COPD exacerbation, pneumonia, sepsis, pulmonary edema, pneumothorax, metabolic acidosis, acute respiratory distress syndrome, panic attack, airflow obstruction, restrictive lung disease, aspiration, congestive heart failure, hypercapnia, influenza, bronchitis, upper respiratory infection, pulmonary embolism, cardiac tamponade, valvular obstruction, [place]/ACS, and arrhythmia. Patient with positive d-dimer CTPA does demonstrate infiltrate, patient also with positive troponin however this number is very consistent with previous troponins. Patient was dialyzed today earlier this morning and went home felt his usual and then suddenly over about an hour period of time states that he became increasingly dyspneic was using duo nebs at home. Patient brought in by fire department and they had him on BiPAP on arrival patient appeared to have impending respiratory fatigue. Patient did state that he is full code. Patient was then switched to our BiPAP given 125 mg Solu-Medrol as well as albuterol nebulizer and over the course of stay in the emergency department patient had progressive improvement. Discussed case with Dr. Hicks consensus medical opinion is to admit the patient. Lab Data Result diagrams: 07/18/20 14:39 07/18/20 14:54 Labs: Lab Results 07/18/20 07/18/20 07/18/20 Range/Units 14:39 14:54 14:54 WBC 11.7 H (4.50-11.00) K/mcL RBC 4.50 L (4.63-6.08) M/mcL Hgb 13.6 L (13.7-17.5) g/dL Hct 42.0 (40.1-51.0) % MCV 93.3 (80.0-100.0) fL MCH 30.2 (26.0-34.0) pg MCHC 32.4 (31.0-36.0) g/dL RDW 15.4 H (11.5-14.5) % Plt Count 305 (140-440) K/mcL MPV 9.9 (7.4-10.4) fL Gran % 74.8 (38.0-78.0) % Lymph % (Auto) 11.9 L (15.5-49.0) % [place] % (Auto) 9.2 (1.0-12.0) % Eos % (Auto) 3.5 (0.0-7.0) % Baso % (Auto) 0.6 (0.0-2.0) % Gran # 8.75 H (1.80-8.00) K/mcL Lymph # (Auto) 1.39 L (1.50-4.80) K/mcL [place] # (Auto) 1.07 H (0.10-0.90) K/mcL Eos # (Auto) 0.41 (0.00-0.70) K/mcL Baso # (Auto) 0.07 (0.00-0.30) K/mcL D-Dimer 2.45 H (0.00-0.40) ug/ml ABG Methemoglobin (0.4-1.5) % VBG pH (7.32-7.42) U VBG pCO2 (41.0-51.0) mmHg VBG pO2 (25-40) mmHg VBG HCO3 (24.0-28.0) mmol/L VBG Total CO2 (25.0-29.0) mmol/L VBG O2 Saturation (40.0-70.0) % VBG Base Excess (-2.0-2.0) Carboxyhemoglobin (0.0-1.5) % THgb Total Hemoglobin (13.5-16.5) gm/dL O2 Delivery Level Sodium 135 (133-145) mmol/L Potassium 4.6 (3.3-5.1) mmol/L Chloride 89 L (96-108) mmol/L Carbon Dioxide 21 L (22-30) mmol/L Anion Gap 25.0 H (8-16) BUN 27 H (6-20) mg/dl Creatinine 6.2 H* (0.7-1.2) mg/dl GFR Calculation 10 Glucose 129 H (70-105) mg/dL Calcium 9.8 (8.6-10.4) mg/dl Total Bilirubin 0.4 (0.0-1.0) mg/dL AST 33 (0-37) U/l ALT 25 (0-40) U/l Alkaline Phosphatase 131 H (39-117) U/L Troponin T (0-0.03) ng/ml Total Protein 8.2 (5.9-8.4) gm/dL Albumin 4.6 (3.2-5.2) gm/dL Globulin 3.6 (2.2-3.7) gm/dL Albumin/Globulin Ratio 1.3 (1.0-2.3) 07/18/20 07/18/20 Range/Units 14:54 15:02 WBC (4.50-11.00) K/mcL RBC (4.63-6.08) M/mcL Hgb (13.7-17.5) g/dL Hct (40.1-51.0) % MCV (80.0-100.0) fL MCH (26.0-34.0) pg MCHC (31.0-36.0) g/dL RDW (11.5-14.5) % Plt Count (140-440) K/mcL MPV (7.4-10.4) fL Gran % (38.0-78.0) % Lymph % (Auto) (15.5-49.0) % [place] % (Auto) (1.0-12.0) % Eos % (Auto) (0.0-7.0) % Baso % (Auto) (0.0-2.0) % Gran # (1.80-8.00) K/mcL Lymph # (Auto) (1.50-4.80) K/mcL [place] # (Auto) (0.10-0.90) K/mcL Eos # (Auto) (0.00-0.70) K/mcL Baso # (Auto) (0.00-0.30) K/mcL D-Dimer (0.00-0.40) ug/ml ABG Methemoglobin 0.3 L (0.4-1.5) % VBG pH 7.36 (7.32-7.42) U VBG pCO2 48.3 (41.0-51.0) mmHg VBG pO2 49 H (25-40) mmHg VBG HCO3 26.9 (24.0-28.0) mmol/L VBG Total CO2 28.4 (25.0-29.0) mmol/L VBG O2 Saturation 75.7 H (40.0-70.0) % VBG Base Excess 1.0 (-2.0-2.0) Carboxyhemoglobin 6.9 H (0.0-1.5) % THgb Total Hemoglobin 12.7 L (13.5-16.5) gm/dL O2 Delivery Level Not Reportable Sodium (133-145) mmol/L Potassium (3.3-5.1) mmol/L Chloride (96-108) mmol/L Carbon Dioxide (22-30) mmol/L Anion Gap (8-16) BUN (6-20) mg/dl Creatinine (0.7-1.2) mg/dl GFR Calculation Glucose (70-105) mg/dL Calcium (8.6-10.4) mg/dl Total Bilirubin (0.0-1.0) mg/dL AST (0-37) U/l ALT (0-40) U/l Alkaline Phosphatase (39-117) U/L Troponin T 0.26 H* (0-0.03) ng/ml Total Protein (5.9-8.4) gm/dL Albumin (3.2-5.2) gm/dL Globulin (2.2-3.7) gm/dL Albumin/Globulin Ratio (1.0-2.3) Discharge Plan Patient/Caregiver Discharge Instructions Pt seen by [facility] SET UP OPERATOR/PA only: No Clinical Impression: Acute exacerbation of chronic obstructive airways disease, ESRD (end stage renal disease) on dialysis, Community acquired pneumonia Hypertension Qualifiers: Hypertension type: secondary to other renal disorders Qualified Code(s): I15.1 - Hypertension secondary to other renal disorders Patient Disposition: Xfer As Inpt ([facility]) Condition: Serious Discharge Date/Time: 07/18/20 21:30
--- NOTE | 2020-07-18 20:14 | Internal Med History&Physical ---
HPI History of Present Illness Patient information: Note initiated : 07/18/20 at 8:09 pm Service Date, if different from initiated Date: [] Patient: Elias Huffman a 50 y/o M admitted on for Shortness of breath. Chief Complaint: [] History of present illness: Mr. Huffman is a 50 year old M Presents the ED with sudden shortness of breath within the past couple hours and had dialysis earlier today. Patient states that he went to dialysis and has felt fine today felt fine when he went home he laid down to take a nap and woke up short of breath and pressure all over his body, no chest pain. He took a breathing treatment with some improvement and went back to bed and then woke up again later feeling even worse. EMS was called he was placed on CPAP and brought to the ED In The ED he was placed on BiPAP because he looked fatigued/labored and had diminished lung sounds per report. He was hypertensive in the ED. D-dimer elevated so CTA performed showing moderate emphysema, respiratory bronchiolitis, atelectasis No PE or Pulm edema or other significant pathology that would account for need of Bipap. Patient eventually taken off the BiPAP to 2 L nasal cannula and then dropped to 1 L nasal cannula, doing well. Sounds better aerated. Still quite hypertensive. Get steroids in the ED. Been hospitalized several times this year including [place] where he had some cardiac evaluation had a intermediate risk stress test that was intermediate based on his ejection fraction of 45%. No cardiac catheterization was recommended at that time. He has hepatitis C positivity based on RNA quantitative analysis. He denies any recent IV drug use says he only smokes methamphetamines. I asked him very much could have got hepatitis C in the past and he says his girlfriend, who was recently diagnosed with hepatitis C. Review of Systems: Positive as above. Denies headache/fever/chills/nausea/vomiting/chest or abdominal pain/cough/diarrhea. Remaining 10 point review of system reviewed negative PFSH PFSH All Active Problems (Updated 07/18/20 @ 20:10 by Agus Lee MD) Renal failure (ARF), acute on chronic (Acute) Acute exacerbation of chronic obstructive airways disease (Acute) ESRD (end stage renal disease) on dialysis (Chronic) Hypertension (Chronic) Chest pain (Acute) Abdominal pain (Acute) Hyperkalemia (Acute) Pulmonary edema (Acute) Acute hyperkalemia (Acute) Strain of lumbar region (Acute) Left against medical advice (Acute) Congestive heart failure (CHF) (Acute) Epididymitis (Acute) Community acquired pneumonia (Acute) Social History (Updated 07/18/20 @ 20:16 by Mark Sanders DO) smoking status: Current every day smoker additional history: Past medical history: COPD Substance abuse with Meth Hypertension End-stage renal disease Chronic anemia Tobacco abuse schizoaffective disorder fatty liver hep c An old note reports CAD with Stents but this is incorrect, no CAD or cardiac stents per pt Surgical history: Cholecystectomy and left arm fistula Family: Mother had diabetes Father chronic kidney disease Social history: Patient smokes 1/2ppd Denies alcohol use Use marijuana, Meth use Lives with girlfriend MEDS/ALLERGIES Home Medications and Allergies Home Medications Medication Instructions Recorded Confirmed Type amlodipine 10 mg PO DAILY 11/09/17 03/11/20 History aspirin [St Yannick Aspirin] 325 mg PO DAILY 11/09/17 03/11/20 History clopidogrel [Plavix] 75 mg PO DAILY 11/09/17 03/11/20 History furosemide 80 mg PO DAILY 11/09/17 03/11/20 History isosorbide mononitrate 60 mg PO DAILY 11/09/17 03/11/20 History nitroglycerin 0.4 mg SL Q5M PRN 11/09/17 03/11/20 History sevelamer carbonate 1,600 mg PO PRN PRN 11/09/17 03/11/20 History B complex-vitamin C-folic acid 1 tab PO DAILY 07/08/19 03/11/20 History cinacalcet 30 mg PO QAMCC 07/08/19 03/11/20 History diltiazem HCl 180 mg PO DAILY 07/08/19 03/11/20 History minoxidil 2.5 mg PO BID 07/08/19 03/11/20 History risperidone 0.5 mg PO BID 07/08/19 03/11/20 History sevelamer carbonate 2,400 mg PO TIDCC 07/08/19 03/11/20 History albuterol sulfate 1 puff INH Q4HP PRN 08/30/19 03/11/20 History clonidine 1 patch TD SA@0900 #0 08/30/19 03/11/20 History albuterol sulfate 2.5 mg NEB Q2HP PRN 03/11/20 03/11/20 History calcium acetate(phosphat bind) 2,001 mg PO TIDCC 03/11/20 03/11/20 History carvedilol 50 mg PO BIDCC 03/11/20 03/11/20 History clonidine HCl 0.1 mg PO BID 03/11/20 03/11/20 History ondansetron 8 mg SL Q6HP PRN 03/11/20 03/11/20 History tiotropium bromide 18 mcg INH DAILY 03/11/20 03/11/20 History vit B comp no.2-rpytl-D-biotin 1 tab PO DAILY 03/11/20 03/11/20 History doxycycline hyclate 100 mg PO BID #1 tablet.orl 03/13/20 Rx Allergies Allergy/AdvReac Type Severity Reaction Status Date / Time No Known Drug Allergies Allergy Verified 07/18/20 14:09 EXAM Constitutional Vitals: Pulse Resp BP Pulse Ox 99 H 20 208/138 99 07/18/20 19:46 07/18/20 19:46 07/18/20 19:46 07/18/20 19:46 Exam: General: Alert, Awake, No acute Distress Eyes/N/T: EOMI, PERRL, poor dentition head/Neck: neck supple, normocephalic atraumatic CV: RRR, 2/6 SM, normal s1/s2 Pulm: b/l rhonchi and wheezing, no rales Abd: soft, nontender, +BS x4 Ext: no clubbing/cyanosis/edema Neuro: Alert, no focal deficits, moves all extremities, CN 2-12 grossly intact, symmetrical strength b/l upper/lower, sensations intact b/l upper/lower Skin: warm/dry DATA Data Completed and Pending Labs: Labs from last 24 hours 07/18/20 07/18/20 07/18/20 15:02 14:54 14:54 WBC RBC Hgb Hct MCV MCH MCHC RDW Plt Count MPV Gran % Lymph % (Auto) [place] % (Auto) Eos % (Auto) Baso % (Auto) Gran # Lymph # (Auto) [place] # (Auto) Eos # (Auto) Baso # (Auto) D-Dimer 2.45 H ABG Methemoglobin 0.3 L VBG pH 7.36 VBG pCO2 48.3 VBG pO2 49 H VBG HCO3 26.9 VBG Total CO2 28.4 VBG O2 Saturation 75.7 H VBG Base Excess 1.0 Carboxyhemoglobin 6.9 H Total Hemoglobin 12.7 L O2 Delivery Level Not Reportable Sodium Potassium Chloride Carbon Dioxide Anion Gap BUN Creatinine GFR Calculation Glucose Calcium Total Bilirubin AST ALT Alkaline Phosphatase Troponin T 0.26 H* Total Protein Albumin Globulin Albumin/Globulin Ratio 07/18/20 07/18/20 14:54 14:39 WBC 11.7 H RBC 4.50 L Hgb 13.6 L Hct 42.0 MCV 93.3 MCH 30.2 MCHC 32.4 RDW 15.4 H Plt Count 305 MPV 9.9 Gran % 74.8 Lymph % (Auto) 11.9 L [place] % (Auto) 9.2 Eos % (Auto) 3.5 Baso % (Auto) 0.6 Gran # 8.75 H Lymph # (Auto) 1.39 L [place] # (Auto) 1.07 H Eos # (Auto) 0.41 Baso # (Auto) 0.07 D-Dimer ABG Methemoglobin VBG pH VBG pCO2 VBG pO2 VBG HCO3 VBG Total CO2 VBG O2 Saturation VBG Base Excess Carboxyhemoglobin Total Hemoglobin O2 Delivery Level Sodium 135 Potassium 4.6 Chloride 89 L Carbon Dioxide 21 L Anion Gap 25.0 H BUN 27 H Creatinine 6.2 H* GFR Calculation 10 Glucose 129 H Calcium 9.8 Total Bilirubin 0.4 AST 33 ALT 25 Alkaline Phosphatase 131 H Troponin T Total Protein 8.2 Albumin 4.6 Globulin 3.6 Albumin/Globulin Ratio 1.3 A/P Narrative A/P Narrative: A: *Acute hypoxic Resp failure: 2/2 AECOPD & Respiratory Bronchilitis-ILD & Atele ctasis -CTA w/moderate emphysema, respiratory bronchiolitis, atelectasis. -on bipap initially in ED but removed later in ED to NC 1L -no CO2 retention on VBG or flash pulm edema, no obvious PNA, no PE *Moderate COPD(not on home O2 ): *Atelectasis: *HTN Urgency: *ESRD: follows with Fabian *Anemia, chronic: *Fatty Liver: *h/o Hep C: no treatment started yet *CAD w/stents: *HTN: home coreg/norvasc/clonidine/minoxidil/lasix *Tobacco abuse: *Substance abuse with Meth: *Schizoaffective disorder: *COPD(not on home O2): Plan: -steroids(wean), nebs -IS/Acapella -emperic abx -prn O2 supp -HD/electrolytes/BP per Dr. Fabian -UDS - -cont home antiplatelets/statin/imdur -cont home coreg/norvasc/clonidine/minoxidil/lasix -Smoking/Meth cessation counseling -f/u with ID regarding Hep C (+) -ppx: Heparin full code Time Spent With Patient Time: Total time spent is greater than 50% in coordination of care (as documented) at patient's floor/unit and/or counseling patient:
[2020-07-18] MEDS ORDERED: MAGNESIUM SULFATE 2 GM/50 ML BAG IV PRN (21:30)
[2020-07-18] MEDS ORDERED: POTASSIUM CHLORIDE 20 MEQ TABLET PO PRN (21:30)
[2020-07-18] MEDS ORDERED: POLYETHYLENE GLYCOL 3350 17 GM PACKET PO PRN (21:30)
[2020-07-18] MEDS ORDERED: cloNIDine HCL 0.1 MG TABLET PO PRN (21:30)
[2020-07-18] MEDS ORDERED: ONDANSETRON 4 MG/2 ML VIAL IV PRN (21:30)
[2020-07-18] MEDS ORDERED: IPRATROPIUM/ALBUTEROL 3 ML AMPUL.NEB NEB PRN (21:30)
[2020-07-18] MEDS ORDERED: hydrALAZINE 20 MG/ML VIAL IV PRN (21:30)
[2020-07-18] MEDS ORDERED: POTASSIUM CHLORIDE 40 MEQ in DEXTROSE 5% IN WATER 500 ML IV PRN (21:30)
[2020-07-18] MEDS ORDERED: ACETAMINOPHEN 325 MG TABLET PO PRN (21:30)
[2020-07-18] MEDS ORDERED: SENNOSIDES 1 TABLET PO PRN (21:30)
[2020-07-18] MEDS: DOCUSATE SODIUM 100 MG CAPSULE PO SCH (22:04)
[2020-07-18] MEDS ORDERED: SEVELAMER 800 MG TABLET PO PRN (22:15)
[2020-07-18] MEDS ORDERED: NITROGLYCERIN 0.4 MG TAB.SUBL SL PRN (22:20)
[2020-07-18] MEDS: methylPREDNISolone SOD SUCC 125 MG/2 ML VIAL IV SCH (22:38)
[2020-07-18] MEDS: HEPARIN 5,000 UNIT/ML VIAL SQ SCH (22:39)
[2020-07-18] MEDS: 0.9 % SODIUM CHLORIDE 10 ML SYRINGE IV SCH (22:39)
[2020-07-18] MEDS: AZITHROMYCIN 500 MG in DEXTROSE 5% IN WATER 250 ML IV SCH (22:59)
[2020-07-18] MEDS: LABETALOL 5 MG/ML ML IV PRN (23:40)
[2020-07-19] MEDS: LABETALOL 5 MG/ML ML IV PRN
[2020-07-19] MEDS ORDERED: niCARdipine 25 MG in 0.9 % SODIUM CHLORIDE 240 ML IV ONE (00:45)
[2020-07-19] MEDS ORDERED: 0.9 % SODIUM CHLORIDE 250 ML IV SCH (00:45)
[2020-07-19] MEDS ORDERED: niCARdipine 25 MG in 0.9 % SODIUM CHLORIDE 240 ML IV SCH (00:45)
[2020-07-19] MEDS ORDERED: amLODIPine 5 MG TABLET ONE ×2 (00:52→01:07)
[2020-07-19] MEDS ORDERED: DILTIAZEM 180 MG CAP.XL.24H PO ONE (00:53)
[2020-07-19] MEDS: DILTIAZEM 180 MG CAP.XL.24H PO SCH ×2 (00:58→08:58)
[2020-07-19] MEDS ORDERED: amLODIPine 10 MG TABLET PO ONE (01:01)
[2020-07-19] MEDS ORDERED: MINOXIDIL 2.5 MG TABLET PO ONE (01:01)
[2020-07-19] MEDS: IPRATROPIUM/ALBUTEROL 3 ML AMPUL.NEB NEB SCH ×4 (02:21→19:10)
[2020-07-19] MEDS: methylPREDNISolone SOD SUCC 125 MG/2 ML VIAL IV SCH (05:27)
[2020-07-19] MEDS: 0.9 % SODIUM CHLORIDE 10 ML SYRINGE IV SCH ×3 (05:27→20:07)
[2020-07-19 07:15] LABS: Basophils # (Auto) 0.01 K/mcL (0.00-0.30); Basophils % (Auto) 0.1 % (0.0-2.0); Eosinophils # (Auto) 0 K/mcL (0.00-0.70); Eosinophils % (Auto) 0 % (0.0-7.0); Granulocytes % (Auto) 95.4 % (38.0-78.0); Hematocrit 35.1 % (40.1-51.0); Hemoglobin 11.9 g/dL (13.7-17.5); Lymphocytes # (Auto) 0.38 K/mcL (1.50-4.80); Lymphocytes % (Auto) 3.4 % (15.5-49.0); Mean Corpuscular HGB Conc 33.9 g/dL (31.0-36.0); Mean Platelet Volume 9.8 fL (7.4-10.4); Monocytes # (Auto) 0.12 K/mcL (0.10-0.90); Monocytes % (Auto) 1.1 % (1.0-12.0); Platelet Count 260 K/mcL (140-440); Red Cell Distribution Width 15.9 % (11.5-14.5); WBC 11.2 K/mcL (4.50-11.00)
--- NOTE | 2020-07-19 07:35 | Internal Med Progress Note ---
SUBJECTIVE Subjective Patient information: Note initiated : 07/19/20 at 7:30 am Service Date, if different from initiated Date: [] Patient: Elias Huffman a 50 y/o M admitted on 07/18/20 for Shortness of breath. Chief Complaint: [] Interval history: History of present illness: Mr. Huffman is a 50 year old M Presents the ED with sudden shortness of breath within the past couple hours and had dialysis earlier today. Patient states that he went to dialysis and has felt fine today felt fine when he went home he laid down to take a nap and woke up short of breath and pressure all over his body, no chest pain. He took a breathing treatment with some improvement and went back to bed and then woke up again later feeling even worse. EMS was called he was placed on CPAP and brought to the ED In The ED he was placed on BiPAP because he looked fatigued/labored and had diminished lung sounds per report. He was hypertensive in the ED. D-dimer elevated so CTA performed showing moderate emphysema, respiratory bronchiolitis, atelectasis No PE or Pulm edema or other significant pathology that would account for need of Bipap. Patient eventually taken off the BiPAP to 2 L nasal cannula and then dropped to 1 L nasal cannula, doing well. Sounds better aerated. Still quite hypertensive. Get steroids in the ED. Been hospitalized several times this year including [place] where he had some cardiac evaluation had a intermediate risk stress test that was intermediate based on his ejection fraction of 45%. No cardiac catheterization was recommended at that time. He has hepatitis C positivity based on RNA quantitative analysis. He denies any recent IV drug use says he only smokes methamphetamines. I asked him very much could have got hepatitis C in the past and he says his girlfriend, who was recently diagnosed with hepatitis C. 07/19 Had a put on a Cardene drip last night but off early this morning. Patient feels a lot better. On room air. Getting dialysis. Nephrology adjusting blood pressure medications. Wean down steroids. Review of Systems: denies headache/fever/chills/nausea/vomiting/chest or abdominal pain/cou gh/dyspnea/diarrhea. Otherwise see above. Constitutional Vitals: Vital Signs Temp Pulse Resp BP Pulse Ox 98.5 F 96 H 22 133/103 95 07/19/20 07:01 07/19/20 06:00 07/19/20 07:01 07/19/20 07:01 07/19/20 07:01 Period Temp Pulse Resp BP Sys/Kaplan Pulse Ox Last 24 Hr 97.2 F-98.5 F 44-102 11-32 128-214/97-147 91-100 Intake and Output 07/18/20 07/19/20 07/19/20 21:59 05:59 13:59 Intake Total 279 0 Output Total 25 40 Balance -25 239 0 Weight 79.52 kg Intake & Output: Intake & Output 07/18/20 07/19/20 07/19/20 21:59 05:59 13:59 Intake Total 279 0 Output Total 25 40 Balance -25 239 0 Weight 79.52 kg Intake: IV 159 0 Cardene 25 MG In Sodium 159 0 Chloride 0.9% 240 ml @ 5 MG/HR 50 mls/hr IV ONCE [facility] Rx#: [id number] Oral 120 Output: Void Amount 25 40 Other: Meal Nourishment/Supplement Percent of Meal Consumed 100% Feeding Ability Independent Urine Appearance Clear Clear Urine Color Bright Yellow Bright Yellow Urine Odor Normal Normal Exam: General: Alert, Awake, No acute Distress Eyes/N/T: EOMI, head/Neck: neck supple, CV: RRR, 2/6 SM, Pulm: mild b/l rhonchi and no wheezing today, Abd: soft, nontender, +BS x4 Ext: no clubbing/cyanosis/edema Neuro: Alert, no focal deficits, moves all extremities, Skin: warm/dry OBJ DATA Labs CBC & Chem 7: 07/19/20 04:31 07/19/20 04:31 Labs: Abnormal Lab Results 07/19/20 07/18/20 07/18/20 04:31 15:02 14:54 WBC 11.2 H RBC 3.90 L Hgb 11.9 L Hct 35.1 L RDW 15.9 H Gran % 95.4 H Lymph % (Auto) 3.4 L Gran # 10.73 H Lymph # (Auto) 0.38 L Butts # (Auto) D-Dimer ABG Methemoglobin 0.3 L VBG pO2 49 H VBG O2 Saturation 75.7 H Carboxyhemoglobin 6.9 H Total Hemoglobin 12.7 L Chloride Carbon Dioxide Anion Gap BUN Creatinine Glucose Alkaline Phosphatase Troponin T 0.26 H* 07/18/20 07/18/20 07/18/20 14:54 14:54 14:39 WBC 11.7 H RBC 4.50 L Hgb 13.6 L Hct RDW 15.4 H Gran % Lymph % (Auto) 11.9 L Gran # 8.75 H Lymph # (Auto) 1.39 L Butts # (Auto) 1.07 H D-Dimer 2.45 H ABG Methemoglobin VBG pO2 VBG O2 Saturation Carboxyhemoglobin Total Hemoglobin Chloride 89 L Carbon Dioxide 21 L Anion Gap 25.0 H BUN 27 H Creatinine 6.2 H* Glucose 129 H Alkaline Phosphatase 131 H Troponin T Meds: Medications Acetaminophen (Tylenol) 650 mg PO Q6HP PRN PRN Reason: PAIN/FEVER > 101 Albuterol/Ipratropium (Duoneb) 3 ml NEB Q4HP PRN PRN Reason: Shortness Of Breath Albuterol/Ipratropium (Duoneb) 3 ml NEB Q6HRT [facility] Last Admin: 07/19/20 02:21 Dose: Not Given Documented by: Amlodipine Besylate (Norvasc) 10 mg PO DAILY [facility] Aspirin (Ecotrin) 325 mg PO DAILY [facility] Calcium Acetate (Phoslo) 2,001 mg PO TIDCC [facility] Carvedilol (Coreg) 25 mg PO BID [facility] Cinacalcet (Sensipar) 30 mg PO QAMCC [facility] Clonidine HCl (Catapres) 0.1 mg PO Q4HP PRN PRN Reason: Hypertension Last Admin: 07/18/20 23:02 Dose: 0.1 mg Documented by: Clonidine HCl (Catapres Tts 2) 1 patch TD SA@0900 [facility] Clonidine HCl (Catapres) 0.1 mg PO BID [facility] Clopidogrel Bisulfate (Plavix) 75 mg PO DAILY [facility] Diltiazem HCl (Cardizem Cd) 180 mg PO DAILY [facility] Last Admin: 07/19/20 00:58 Dose: 180 mg Documented by: Docusate Sodium (Colace) 100 mg PO BID [facility] Last Admin: 07/18/20 22:04 Dose: Not Given Documented by: Furosemide (Lasix) 80 mg PO DAILY [facility] Heparin Sodium (Porcine) (Heparin) 5,000 unit SQ Q12 [facility] Last Admin: 07/18/20 22:39 Dose: 5,000 unit Documented by: Hydralazine HCl (Apresoline) 0 mg IV Q2HP PRN PRN Reason: Hypertension Last Admin: 07/18/20 23:02 Dose: 20 mg Documented by: Potassium Chloride 40 meq/ (Dextrose) 520 mls @ 130 mls/hr IV UD PRN PRN Reason: Potassium < 3 Magnesium Sulfate (Magnesium Sulfate) 2 gm in 50 mls @ 50 mls/hr IV UD PRN PRN Reason: Magnesium </= 1.6 Azithromycin 500 mg/ Dextrose 250 mls @ 250 mls/hr IV Q24H [facility]; Protocol Stop: 07/20/20 22:59 Last Admin: 07/18/20 22:59 Dose: 250 mls/hr Documented by: Nicardipine HCl 25 mg/ Sodium (Chloride) 250 mls @ 50 mls/hr IV ONCE@0045 [facility]; Protocol Stop: 07/20/20 05:44 Isosorbide Mononitrate (Imdur) 60 mg PO DAILY [facility] Labetalol HCl (Trandate) 0 mg IV Q2HP PRN PRN Reason: Hypertension Last Admin: 07/19/20 00:00 Dose: 10 mg Documented by: Methylprednisolone Sodium Succinate (Solu-Medrol) 62.5 mg IV Q8 [facility] Last Admin: 07/19/20 05:27 Dose: 62.5 mg Documented by: Minoxidil (Minoxidil) 2.5 mg PO BID [facility] Nitroglycerin (Nitrostat) 0.4 mg SL Q5M PRN PRN Reason: Chest Pain Ondansetron HCl (Zofran) 4 mg IV Q4HP PRN PRN Reason: Nausea And Vomiting Polyethylene Glycol (Miralax) 17 gm PO DAILYP PRN PRN Reason: Constipation Potassium Chloride (Kdur) 40 meq PO UD PRN PRN Reason: Potssium is 3-3.5 Risperidone (Risperdal) 0.5 mg PO BID [facility] Senna (Senokot) 2 tab PO DAILYP PRN PRN Reason: Constipation Sevelamer Carbonate (Renvela) 1,600 mg PO PRN PRN PRN Reason: Snacks Sevelamer Carbonate (Renvela) 2,400 mg PO TIDCC [facility] Sodium Chloride (Saline Flush) 10 ml IV Q8 [facility] Last Admin: 07/19/20 05:27 Dose: 10 ml Documented by: Tiotropium Ebony (Spiriva) 18 mcg INH DAILY [facility] ABG Interpretation ABG results: 07/18/20 15:02 ABG Methemoglobin 0.3 L VBG pH 7.36 VBG pCO2 48.3 VBG pO2 49 H VBG HCO3 26.9 VBG Total CO2 28.4 VBG O2 Saturation 75.7 H VBG Base Excess 1.0 A/P Narrative A/P Narrative: A: *Acute hypoxic Resp failure: 2/2 AECOPD & Respiratory Bronchilitis-ILD & Atelectasis -CTA w/moderate emphysema, respiratory bronchiolitis, atelectasis. -no CO2 retention on VBG or flash pulm edema, no obvious PNA, no PE -on bipap initially in ED but removed later in ED to [place], now on room air *AECOPD, Moderate COPD(not on home O2): *Atelectasis: *HTN Urgency: *ESRD: follows with [facility] *Anemia, chronic: *Fatty Liver: *h/o Hep C: no treatment started yet *CAD w/stents: *HTN: home coreg/norvasc/clonidine/minoxidil/lasix *Tobacco abuse: *Substance abuse with Meth: *Schizoaffective disorder: *COPD(not on home O2): Plan: -cardene gtt last night now off -steroids(wean), nebs -IS/Acapella -emperic abx -prn O2 supp -HD/electrolytes/BP per Dr. Fabian -UDS - -cont home antiplatelets/statin/imdur -cont home coreg/norvasc/clonidine/minoxidil/lasix/lisinopril -Smoking/Meth cessation counseling -f/u with ID regarding Hep C (+) -ppx: Heparin full code Time Spent With Patient Time: Total time spent is greater than 50% in coordination of care (as documented) at patient's floor/unit and/or counseling patient: QUALITY VTE Deep Vein Thrombosis/Pulmonary Embolism Present on Admission: No
[2020-07-19] MEDS ORDERED: CINACALCET 30 MG TABLET PO SCH (08:00)
[2020-07-19 08:29] LABS: ALT/SGPT 21 U/l (0-40); AST/SGOT 26 U/l (0-37); Albumin 4.3 gm/dL (3.2-5.2); Albumin/Globulin Ratio 1.5 (1.0-2.3); Alkaline Phosphatase 99 U/L (39-117); Bilirubin,Direct < 0.2 mg/dL (0.0-0.3); Bilirubin,Total 0.5 mg/dL (0.0-1.0); Blood Urea Nitrogen 41 mg/dl (6-20); Carbon Dioxide 23 mmol/L (22-30); Chloride 92 mmol/L (96-108); Globulin 2.9 gm/dL (2.2-3.7); Glomerular Filtration Rate 8; Glucose 122 mg/dL (70-105); Lactate Dehydrogenase 337 U/L (94-250); Phosphorous 5.5 mg/dL (2.7-4.5); Triglycerides 47 mg/dl (<150)
[2020-07-19] MEDS: SEVELAMER 800 MG TABLET PO SCH ×3 (08:30→17:18)
[2020-07-19] MEDS: CALCIUM ACETATE 667 MG CAPSULE PO SCH ×3 (08:30→17:18)
[2020-07-19] MEDS ORDERED: amLODIPine 10 MG TABLET PO SCH (09:00)
[2020-07-19] MEDS ORDERED: FUROSEMIDE 40 MG TABLET PO SCH (09:00)
[2020-07-19] MEDS ORDERED: ISOSORBIDE MONONITRATE 60 MG TAB.XL.24H PO SCH (09:00)
[2020-07-19] MEDS ORDERED: TIOTROPIUM BROMIDE 18 MCG INHALANT INH SCH (09:00)
[2020-07-19] MEDS ORDERED: CLOPIDOGREL 75 MG TABLET PO SCH (09:00)
[2020-07-19] MEDS ORDERED: ASPIRIN 325 MG ENTERIC COATED TABLET PO SCH ×2 (09:00)
[2020-07-19] MEDS: MINOXIDIL 2.5 MG TABLET PO SCH ×2 (09:05→20:08)
[2020-07-19] MEDS: DOCUSATE SODIUM 100 MG CAPSULE PO SCH ×2 (09:08→20:08)
[2020-07-19] MEDS: HEPARIN 5,000 UNIT/ML VIAL SQ SCH ×2 (09:17→20:06)
[2020-07-19] MEDS: CARVEDILOL 12.5 MG TABLET PO SCH ×2 (09:19→20:07)
[2020-07-19] MEDS: cloNIDine HCL 0.1 MG TABLET PO SCH ×2 (09:19→20:07)
[2020-07-19] MEDS: risperiDONE 0.25 MG TABLET PO SCH ×2 (09:26→20:07)
[2020-07-19 09:47] LABS: Amphetamine Screen,Urine SUSPECT POSITIVE (NONDETECTED); Barbiturate Screen,Urine NONE DETECTED (NONDETECTED); Benzodiazepines Screen,Urine NONE DETECTED (NONDETECTED); Cannabinoid Screen,Urine SUSPECT POSITIVE (NONDETECTED); Cocaine Screen,Urine NONE DETECTED (NONDETECTED); Opiate Screen,Urine NONE DETECTED (NONDETECTED); Oxycodone, Urine Screen NONE DETECTED (NONDETECTED); Phencyclidine Screen,Urine NONE DETECTED (NONDETECTED)
--- NOTE | 2020-07-19 10:20 | Consultation ---
DATE OF CONSULTATION: 07/19/2020 REFERRING PHYSICIAN: Agus Lee M.D. REASON FOR CONSULTATION: End-stage renal disease and volume overload. REASON FOR HOSPITALIZATION: The patient is a 50-year-old gentleman with past medical history significant for end-stage renal disease on hemodialysis. He dialyzes Mondays, Wednesdays, and Fridays. He did have his regular dialysis treatment on Saturday, but he did skip an hour. He was not able to get rid of all the fluid that was prescribed because of the shortened duration. He felt fine and went home and took a nap and woke up short of breath. He had some vague pain everywhere. He was quite short of breath that he needed a BiPAP when he came to the Emergency Room. He was hypotensive in the Emergency Room as well. He did not have any fever. Because of the elevated D-dimer, CTA was performed which showed moderate emphysema without any evidence of pulmonary embolism. He was eventually weaned off of the BiPAP and to 1 liter nasal cannula. He remained hypertensive throughout. PAST MEDICAL HISTORY: Significant for: 1. End-stage renal disease on hemodialysis. He dialyzes Mondays, Wednesdays and Fridays. 2. Chronic obstructive pulmonary disease with acute exacerbations. 3. Longstanding hypertension, chronic, difficult to control, mostly related to volume and also not sure if he is getting his medications all the time. 4. Chest discomfort several times, possibly related to hypertension. 5. History of hypokalemia. 6. History of drug use. 7. History of community-acquired pneumonia in the past. SOCIAL HISTORY: He continues to smoke every day. He occasionally uses meth. SURGICAL HISTORY: History of cholecystectomy and a left arm AV fistula placement. FAMILY HISTORY: Mother has diabetes and father has chronic kidney disease. MEDICATIONS ON ADMISSION: 1. Amlodipine 10 mg daily. 2. Aspirin 325 mg daily. 3. Plavix 75 mg daily. 4. Lasix 80 mg daily. 5. Isosorbide mononitrate 60 mg daily. 6. Nitroglycerin p.r.n. 7. Sevelamer 1600 mg p.o. t.i.d. with meals. 8. B complex with vitamin D 1 tablet once daily. 9. Cinacalcet 30 mg daily. 10. Diltiazem hydrochloride 180 mg daily. 11. Minoxidil 2.5 mg twice daily. 12. Risperidone 0.5 mg twice daily. 13. Clonidine patch once weekly. 14. Carvedilol 25 mg twice daily. ALLERGIES: No known drug allergies. REVIEW OF SYSTEMS: Ten systems were reviewed and as indicated in the history. PHYSICAL EXAMINATION: GENERAL: He is alert, oriented x3, in no apparent distress. VITAL SIGNS: Blood pressures have been 180 to 220 systolic with a diastolic from 100 to 140s. Pulse rates have been in the 90s, respiratory rate 20, temperature 99. HEENT: Normocephalic/atraumatic. Pupils are reactive. External auditory canals appear normal. Oral cavity shows normal mucosa. NECK: Supple. No jugular venous distention. He does have about 10 cm of jugular venous distention. No lymphadenopathy. No thyromegaly. LUNGS: Decreased air entry bilaterally, a few rales heard in the bases. CARDIAC: S1, S2 heard. No S3, S4. No murmurs. No rubs. ABDOMEN: Soft, nontender. No immediate positive bowel sounds. No mass, no rebound. EXTREMITIES: Did not show evidence of edema. Palpable dorsalis pedis and posterior tibials. NEUROLOGIC: Grossly intact. LABORATORY DATA: White count 11.2 with hemoglobin of 11.9 and platelet count of 260. Sodium 136, potassium 4.5, chloride 92, CO2 23, BUN 21, BUN 41, creatinine 7.5, phosphorus 5.5. His troponin was 0.26. RADIOLOGIC STUDIES: Chest x-ray showed congestive heart failure. IMPRESSION AND PLAN: 1. End-stage renal disease with moderate volume excess. He is hypertensive and chest x-ray showed congestive heart failure. Exam is not that remarkable for volume excess. We will dialyze him today, remove about 4 to 5 kilos of fluid as he tolerates. We will do an ultrafiltration in the first hour and dialysis in the subsequent duration. 2. Hypertension, mostly related to volume. I will discontinue the Cardizem and start him on the lisinopril as he is already on amlodipine and minoxidil for peripheral vasodilatation. 3. Multiple other problems, management per hospitalist. 4. Hyperphosphatemia. Phosphorus looks okay. SUHAIL:caroline Job ID: [id number] Doc ID: [id number] Levon Fabian MD
--- NOTE | 2020-07-19 10:27 | Discharge Summary ---
Discharge Provider Provider Patient information: Note initiated : 07/19/20 at 10:24 am Service Date, if different from initiated Date: [] Patient: Elias Huffman 50 y/o M admitted on 07/18/20 for Shortness of breath. Chief Complaint: [] Date of admission: 07/18/20 21:26 Discharge date: 07/20/20 Primary care physician: Fabi Singh Consults: 07/18/20 Consult to Physician [CONS] Stat Comment: Consulting Provider: Mark Sanders Reason For Exam: Physician to Consult 07/18/20 21:30 Consult to Physician [CONS] Routine Comment: Consulting Provider: Levon Fabian Reason For Exam: Physician to Consult Discharge Meds Discharge Medications Home Medications amlodipine 10 mg PO DAILY 11/09/17 [History Confirmed 07/18/20 Last Taken 07/17/20 08:00] aspirin [[facility] Aspirin] 325 mg PO DAILY 11/09/17 [History Confirmed 07/18/20 Last Taken 07/18/20 08:00] clopidogrel [Plavix] 75 mg PO DAILY 11/09/17 [History Confirmed 07/18/20 Last Taken 07/17/20 08:00] furosemide 80 mg PO DAILY 11/09/17 [History Confirmed 07/18/20 Last Taken 07/17/20 08:00] isosorbide mononitrate 60 mg PO DAILY 11/09/17 [History Confirmed 07/18/20 Last Taken 07/18/20 08:00] nitroglycerin 0.4 mg SL Q5M PRN 11/09/17 [History Confirmed 07/18/20 Last Taken 10/11/19] sevelamer carbonate 1,600 mg PO PRN PRN 11/09/17 [History Confirmed 07/18/20 Last Taken 12/19/19] B complex-vitamin C-folic acid 1 tab PO DAILY 07/08/19 [History Confirmed 07/18/20 Last Taken 12/19/19] cinacalcet 30 mg PO [facility] 07/08/19 [History Confirmed 07/18/20 Last Taken 07/18/20 08:00] minoxidil 2.5 mg PO BID 07/08/19 [History Confirmed 07/18/20 Last Taken 07/17/20 08:00] risperidone 0.5 mg PO BID 07/08/19 [History Confirmed 07/18/20 Last Taken 07/18/20 08:00] sevelamer carbonate 2,400 mg PO [facility]ID[facility] 07/08/19 [History Confirmed 07/18/20 Last Taken 07/18/20 08:00] albuterol sulfate 1 puff INH Q4HP PRN 08/30/19 [History Confirmed 07/18/20 Last Taken 12/19/19] clonidine 1 patch TRANSDERMAL SA@0900 #0 08/30/19 [History Confirmed 07/18/20 Last Taken 07/16/20 08:00] albuterol sulfate 2.5 mg NEB Q2HP PRN 03/11/20 [History Confirmed 07/18/20 Last Taken Unknown] calcium acetate(phosphat bind) 2,001 mg PO TIDCC 03/11/20 [History Confirmed 07/18/20 Last Taken 07/17/20 08:00] carvedilol 25 mg PO BID 03/11/20 [History Confirmed 07/18/20 Last Taken 07/18/20 08:00] clonidine HCl 0.1 mg PO BID 03/11/20 [History Confirmed 07/18/20 Last Taken Unknown] tiotropium bromide 18 mcg INH DAILY 03/11/20 [History Confirmed 07/18/20 Last Taken Unknown] vit B comp no.3-[id number]-[id number]-biotin 1 tab PO DAILY 03/11/20 [History Confirmed 07/18/20 Last Taken 07/17/20 08:00] lisinopril 40 mg PO HS #30 tab 07/19/20 [Rx Last Taken Unknown] COURSE Hospital Course Hospital course: History of present illness: Mr. Huffman is a 50 year old M Presents the ED with sudden shortness of breath within the past couple hours and had dialysis earlier today. Patient states that he went to dialysis and has felt fine today felt fine when he went home he laid down to take a nap and woke up short of breath and pressure all over his body, no chest pain. He took a breathing treatment with some improvement and went back to bed and then woke up again later feeling even worse. EMS was called he was placed on CPAP and brought to the ED In The ED he was placed on BiPAP because he looked fatigued/labored and had diminished lung sounds per report. He was hypertensive in the ED. D-dimer elevated so CTA performed showing moderate emphysema, respiratory bronchiolitis, atelectasis No PE or Pulm edema or other significant pathology that would account for need of Bipap. Patient eventually taken off the BiPAP to 2 L nasal cannula and then dropped to 1 L nasal cannula, doing well. Sounds better aerated. Still quite hypertensive. Get steroids in the ED. Been hospitalized several times this year including [facility] where he had some cardiac evaluation had a intermediate risk stress test that was intermediate based on his ejection fraction of 45%. No cardiac catheterization was recommended at that time. He has hepatitis C positivity based on RNA quantitative analysis. He denies any recent IV drug use says he only smokes methamphetamines. I asked him very much could have got hepatitis C in the past and he says his girlfriend, who was recently diagnosed with hepatitis C. 07/19 Had a put on a Cardene drip last night but off early this morning. Patient feels a lot better. On room air. Getting dialysis. Nephrology adjusting blood pressure medications. Wean down steroids. Will discharge in the morning prior to 6 AM hemodialysis schedule A: *Acute hypoxic Resp failure: 2/ AECOPD & Respiratory Bronchilitis-ILD & Atelectasis -CTA w/moderate emphysema, respiratory bronchiolitis, atelectasis. -no CO2 retention on VBG or flash pulm edema, no obvious PNA, no PE -on bipap initially in ED but removed later in ED to HI, now on room air *AECOPD, Moderate COPD(not on home O2): *Atelectasis: *HTN Urgency: *ESRD: follows with Fabian *Anemia, chronic: *Fatty Liver: *h/o Hep C: no treatment started yet *CAD w/stents: *HTN: home coreg/norvasc/clonidine/minoxidil/lasix *Tobacco abuse: *Substance abuse with Meth: *Schizoaffective disorder: *COPD(not on home O2): Discharge diagnosis: Hypoxia respite failure COPD respiratory bronchiolitis a telectasis hyperten Secondary discharge diagnosis: Hypertensive urgency end-stage renal disease chronic anemia fatty liver hepatitis C CAD hypertension tobacco abuse substance abuse with meth schizoaffective sorter Time Spent with Patient Time attestation: Total time spent providing and/or coordinating discharge services: Time spent: Greater than 30 minutes EXAM Constitutional Vitals: Temp Pulse Resp BP Pulse Ox 99.0 F 89 25 H 170/113 100 07/19/20 08:31 07/19/20 07:40 07/19/20 10:03 07/19/20 10:03 07/19/20 10:03 Discharge Data Data Completed and Pending Labs on day of discharge: Labs from last 24 hours 07/19/20 07/19/20 07/19/20 08:42 04:31 04:31 WBC 11.2 H RBC 3.90 L Hgb 11.9 L Hct 35.1 L MCV 90.0 MCH 30.5 MCHC 33.9 RDW 15.9 H Plt Count 260 MPV 9.8 Gran % 95.4 H Lymph % (Auto) 3.4 L Fannin % (Auto) 1.1 Eos % (Auto) 0 Baso % (Auto) 0.1 Gran # 10.73 H Lymph # (Auto) 0.38 L Fannin # (Auto) 0.12 Eos # (Auto) 0 Baso # (Auto) 0.01 D-Dimer ABG Methemoglobin VBG pH VBG pCO2 VBG pO2 VBG HCO3 VBG Total CO2 VBG O2 Saturation VBG Base Excess Carboxyhemoglobin Total Hemoglobin O2 Delivery Level Sodium 136 Potassium 4.5 Chloride 92 L Carbon Dioxide 23 Anion Gap 21.0 H BUN 41 H Creatinine 7.5 H* GFR Calculation 8 Glucose 122 H Uric Acid 6.0 Calcium 10.0 Phosphorus 5.5 H Magnesium 2.6 H Total Bilirubin 0.5 Direct Bilirubin < 0.2 GGT 92 H AST 26 ALT 21 Alkaline Phosphatase 99 Lactate Dehydrogenase 337 H Troponin T Total Protein 7.2 Albumin 4.3 Globulin 2.9 Albumin/Globulin Ratio 1.5 Triglycerides 47 Urine Opiates Screen None detected Ur Oxycodone Screen None detected Urine Methadone Screen None detected Ur Barbiturates Screen None detected Ur Phencyclidine Scrn None detected Ur Amphetamines Screen Suspect positive A U Benzodiazepines Scrn None detected Urine Cocaine Screen None detected U Marijuana (THC) Screen Suspect positive A 07/18/20 07/18/20 07/18/20 15:02 14:54 14:54 WBC RBC Hgb Hct MCV MCH MCHC RDW Plt Count MPV Gran % Lymph % (Auto) Fannin % (Auto) Eos % (Auto) Baso % (Auto) Gran # Lymph # (Auto) Fannin # (Auto) Eos # (Auto) Baso # (Auto) D-Dimer 2.45 H ABG Methemoglobin 0.3 L VBG pH 7.36 VBG pCO2 48.3 VBG pO2 49 H VBG HCO3 26.9 VBG Total CO2 28.4 VBG O2 Saturation 75.7 H VBG Base Excess 1.0 Carboxyhemoglobin 6.9 H Total Hemoglobin 12.7 L O2 Delivery Level Not Reportable Sodium Potassium Chloride Carbon Dioxide Anion Gap BUN Creatinine GFR Calculation Glucose Uric Acid Calcium Phosphorus Magnesium Total Bilirubin Direct Bilirubin GGT AST ALT Alkaline Phosphatase Lactate Dehydrogenase Troponin T 0.26 H* Total Protein Albumin Globulin Albumin/Globulin Ratio Triglycerides Urine Opiates Screen Ur Oxycodone Screen Urine Methadone Screen Ur Barbiturates Screen Ur Phencyclidine Scrn Ur Amphetamines Screen U Benzodiazepines Scrn Urine Cocaine Screen U Marijuana (THC) Screen 07/18/20 07/18/20 14:54 14:39 WBC 11.7 H RBC 4.50 L Hgb 13.6 L Hct 42.0 MCV 93.3 MCH 30.2 MCHC 32.4 RDW 15.4 H Plt Count 305 MPV 9.9 Gran % 74.8 Lymph % (Auto) 11.9 L Fannin % (Auto) 9.2 Eos % (Auto) 3.5 Baso % (Auto) 0.6 Gran # 8.75 H Lymph # (Auto) 1.39 L Fannin # (Auto) 1.07 H Eos # (Auto) 0.41 Baso # (Auto) 0.07 D-Dimer ABG Methemoglobin VBG pH VBG pCO2 VBG pO2 VBG HCO3 VBG Total CO2 VBG O2 Saturation VBG Base Excess Carboxyhemoglobin Total Hemoglobin O2 Delivery Level Sodium 135 Potassium 4.6 Chloride 89 L Carbon Dioxide 21 L Anion Gap 25.0 H BUN 27 H Creatinine 6.2 H* GFR Calculation 10 Glucose 129 H Uric Acid Calcium 9.8 Phosphorus Magnesium Total Bilirubin 0.4 Direct Bilirubin GGT AST 33 ALT 25 Alkaline Phosphatase 131 H Lactate Dehydrogenase Troponin T Total Protein 8.2 Albumin 4.6 Globulin 3.6 Albumin/Globulin Ratio 1.3 Triglycerides Urine Opiates Screen Ur Oxycodone Screen Urine Methadone Screen Ur Barbiturates Screen Ur Phencyclidine Scrn Ur Amphetamines Screen U Benzodiazepines Scrn Urine Cocaine Screen U Marijuana (THC) Screen Discharge Plan Patient/Caregiver Discharge Instructions Activity: increase activity as tolerated Diet: Renal Instructions: COPD (Chronic Obstructive Pulmonary Disease) (GEN), Hypertension (GEN) Activity Restrictions/Additional Instructions: This discharge packet is provided to you to help keep you informed about your care. We want to ensure you get everything you need when you go home. You will also be receiving a call from us in a few days to follow up with you and see how you are doing since your discharge. This gives us a chance to listen to any concerns you maybe experiencing since you were discharged or any additional needs you may have, as well as providing us feedback on your care experience. We strive to always provide excellent care and thank you for your feedback and for choosing [facility]. Referral to see infectious disease physician in 5 to 14 days for hepatitis C positivity Prescriptions: New lisinopril 20 mg Tablet 40 mg PO HS Qty: 30 RF: 0 Continued clopidogrel [Plavix] 75 MG tablet 75 mg PO DAILY RF: 0 aspirin [[facility] Aspirin] 81 MG tablet,chewable 325 mg PO DAILY RF: 0 isosorbide mononitrate 60 MG tablet extended release 24 hr 60 mg PO DAILY RF: 0 nitroglycerin 0.4 MG tablet, sublingual 0.4 mg SL Q5M PRN (Reason: Chest Pain) RF: 0 amlodipine 10 MG tablet 10 mg PO DAILY RF: 0 sevelamer carbonate 800 MG tablet 1,600 mg PO PRN PRN (Reason: Snacks) RF: 0 furosemide 40 MG tablet 80 mg PO DAILY RF: 0 risperidone 0.25 MG tablet 0.5 mg PO BID RF: 0 minoxidil 2.5 MG tablet 2.5 mg PO BID RF: 0 cinacalcet 30 MG tablet 30 mg PO QAMCC RF: 0 B complex-vitamin C-folic acid 1 EACH tablet 1 tab PO DAILY RF: 0 sevelamer carbonate 800 MG tablet 2,400 mg PO TIDCC RF: 0 clonidine 1 PATCH patch weekly 1 patch transdermal SA@0900 Qty: 0 RF: 0 albuterol sulfate 1 PUFF inhaler 1 puff INH Q4HP PRN (Reason: Shortness Of Breath) RF: 0 clonidine HCl 0.1 MG tablet 0.1 mg PO BID RF: 0 carvedilol 12.5 MG tablet 25 mg PO BID RF: 0 albuterol sulfate 2.5 MG/3 ML solution for nebulization 2.5 mg NEB Q2HP PRN (Reason: Shortness Of Breath) RF: 0 tiotropium bromide 18 MCG capsule, w/inhalation device 18 mcg INH DAILY RF: 0 calcium acetate(phosphat bind) 667 MG capsule 2,001 mg PO TIDCC RF: 0 vit B comp no.3-[id number]-D-biotin 1 EACH tablet 1 tab PO DAILY RF: 0 Discontinued diltiazem HCl 180 MG capsule,extended release 24hr 180 mg PO DAILY RF: 0 Follow Up Plan Follow up with: Fabi Singh ARNP [Primary Care Provider] - Levon Fabian MD [Physician] - Patient Disposition: Home, Self-Care Prognosis: Serious Overall status at discharge: patient is progressing back to baseline Discharge Orders: Discharge Order (Routine); Ordered 07/20/20 [facility]: [facility] Deep Vein Thrombosis/Pulmonary Embolism Present on Admission: No
[2020-07-19] MEDS: AZITHROMYCIN 500 MG in DEXTROSE 5% IN WATER 250 ML IV SCH (14:40)
[2020-07-19] MEDS ORDERED: LISINOPRIL 20 MG TABLET PO SCH (21:00)
[2020-07-19] MEDS ORDERED: methylPREDNISolone SOD SUCC 125 MG/2 ML VIAL IV SCH (21:00)
[2020-07-20] MEDS: IPRATROPIUM/ALBUTEROL 3 ML AMPUL.NEB NEB SCH (04:46)
[2020-07-20] MEDS ORDERED: predniSONE 20 MG TABLET PO SCH (08:00)
[2020-07-20] MEDS ORDERED: FLU VACC QS2020-21(6MOS UP)/PF 60 MCG/0.5 ML SYRINGE IM ONE (10:00)
[2020-07-23] MEDS ORDERED: cloNIDine TTS 2 1 PATCH PATCH TD SCH (09:00)
[2020-07-25 15:19] LABS: Cannabinoid Confirmation POSITIVE (N)
== END 2020-07-20 04:49 | disposition home or self-care (01) | DRG 189 ==
LOC: ED 13:55 → ICU 21:26
PROVIDERS: ADMIT Internal Medicine; ATTEND Internal Medicine